=== PATIENT | male | born 1970 | race Caucasian/White ===

== ENCOUNTER 2017-09-26 23:06 | Inpatient (IN) | payer OTHER, MEDICAID ==
[~2017-09-26] VITALS: Ht 182.9 cm; Wt 82.1 kg
[2017-09-26] MEDS ORDERED: METF500T4 PO (23:12)
[2017-09-26] MEDS ORDERED: CLOZ25TA4 PO (23:17)
[2017-09-26 23:22] LABS: BASOPHILS % (AUTO) 0.5 % (0.0-2.0); EOSINOPHILS % (AUTO) 0 % (1.0-6.0); HEMATOCRIT 38.8 % (41-53); HEMOGLOBIN 12.9 g/dL (13.5-17.5); LYMPHOCYTES # (AUTO) 1.6 K/uL (1.0-4.8); LYMPHOCYTES % (AUTO) 26.7 % (22.0-44.0); MEAN CORPUSCULAR HEMOGLOBIN 30.4 pg (26.0-34.0); MEAN CORPUSCULAR HGB CONC 33.3 G/dL (31.0-37.0); MEAN CORPUSCULAR VOLUME 91 fL (80-100); MONOCYTES # (AUTO) 0.5 K/uL (0.1-1.0); NEUTROPHILS # (AUTO) 3.8 K/uL (1.8-7.7); NEUTROPHILS % (AUTO) 64.8 % (40.0-70.0); PLATELET COUNT (AUTO) 282 K/uL (150-450); RED BLOOD CELL COUNT(AUTO) 4.25 MIL/uL (4.50-5.90); RED CELL DISTRIBUTION WIDTH 17.3 % (11.5-14.5)
[2017-09-26 23:31] LABS: ANION GAP 12 mmol/L (8-16); CALCIUM, TOTAL 8.9 mg/dL (8.8-10.5); CARBON DIOXIDE 24 mmol/L (22-29); CHLORIDE 105 mmol/L (98-107); CREATININE 0.67 mg/dL (0.60-1.30); GLOMERULAR FILTR. RATE CALC > 60 mL/min (>60); GLUCOSE,RANDOM 92 mg/dL (70-110); SODIUM SERUM 141 mmol/L (136-145); UREA NITROGEN, BLOOD 10 mg/dL (7-18)
[2017-09-26 23:37] LABS: ALANINE AMINOTRANSFERASE 25 U/L (12-78); ALBUMIN 3.6 g/dL (3.4-5.0); ALKALINE PHOSPHATASE 40 U/L (46-116); ASPARTATE AMINOTRANSFERASE 22 U/L (15-37); BILIRUBIN,TOTAL 0.3 mg/dL (0.1-1.0); TOTAL PROTEIN, SERUM 7.2 g/dL (6.4-8.2)
[2017-09-26 23:42] LABS: AMPHET/METH SCREEN,URINE NEGATIVE (NEGATIVE); BARBITURATE SCREEN, URINE NEGATIVE (NEGATIVE); BENZODIAZEPINES SCREEN,URINE NEGATIVE (NEGATIVE); CANNABINOID SCREEN,URINE POSITIVE (NEGATIVE); COCAINE SCREEN,URINE NEGATIVE (NEGATIVE); METHADONE SCREEN, URINE NEGATIVE (NEGATIVE); OPIATE SCREEN,URINE NEGATIVE (NEGATIVE)
[2017-09-26 23:44] LABS: PHENCYCLIDINE SCREEN,URINE NEGATIVE (NEGATIVE)
[2017-09-27] MEDS ORDERED: PERTUSS(ACELL),DIPH,TET VAC/PF 0.5 ML VIAL IM ONE (03:00)
[2017-09-27] MEDS: MetFORMIN HCL 500 MG TABLET PO SCH ×2 (07:56→17:17)
[2017-09-27 08:18] LABS: GLUCOSE,POINT OF CARE 81 MG/DL (70-110)
[2017-09-27] MEDS ORDERED: SENNA 187 MG TABLET PO ONE (11:30)
[2017-09-27 15:58] LABS: GLUCOMETER DEV NAME(LOC) BV2S; GLUCOSE,POINT OF CARE 82 MG/DL (70-110)
[2017-09-27 16:35] VITALS: BP 115/69
[2017-09-27] MEDS ORDERED: INFLUENZA VIRUS VACCINE QVS 2017-18 (3YR+)/PF 60 MCG/0.5 ML SYRINGE IM ONE (18:00)
[2017-09-27] MEDS ORDERED: INSULIN ASPART 100 UNITS/ML SQ PRN (19:15)
[2017-09-27] MEDS ORDERED: ACETAMINOPHEN 325 MG TABLET PO PRN (19:15)
[2017-09-27] MEDS ORDERED: IBUPROFEN 600 MG TABLET PO PRN (19:15)
[2017-09-27] MEDS ORDERED: GLUCAGON,HUMAN RECOMBINANT 1 MG VIAL IM PRN (19:15)
[2017-09-28 04:20] VITALS: BP 117/67
[2017-09-28 07:07] LABS: GLUCOMETER DEV NAME(LOC) BV2S; GLUCOSE,POINT OF CARE 106 MG/DL (70-110)
[2017-09-28] MEDS: MetFORMIN HCL 500 MG TABLET PO SCH ×2 (07:08→17:03)
[2017-09-28 08:18] VITALS: BP 120/80
[2017-09-28 08:28] LABS: HEMOGLOBIN A1C 5.9 % (4.5-6.2)
[2017-09-28 08:54] LABS: CHOL/HDL RATIO 2.2 (4.2-7.3)
[2017-09-28] MEDS: LORazepam 2 MG TABLET PO PRN ×2 (12:44→23:43)
[2017-09-28 16:20] VITALS: BP 116/78
[2017-09-28 17:33] LABS: GLUCOMETER DEV NAME(LOC) BV2S; GLUCOSE,POINT OF CARE 92 MG/DL (70-110)
[2017-09-28] MEDS: ZOLPIDEM TARTRATE 10 MG TABLET PO PRN (23:43)
[2017-09-29] VITALS: BP 109/73
[2017-09-29] MEDS: MetFORMIN HCL 500 MG TABLET PO SCH ×2 (06:39→16:58)
[2017-09-29 06:48] LABS: GLUCOMETER DEV NAME(LOC) BV2S; GLUCOSE,POINT OF CARE 84 MG/DL (70-110)
[2017-09-29] MEDS: CloZAPine 25 MG TABLET PO SCH ×2 (08:05→16:58)
[2017-09-29 08:13] LABS: BASOPHILS % (AUTO) 0.2 % (0.0-2.0); EOSINOPHILS % (AUTO) 0 % (1.0-6.0); HEMATOCRIT 41.4 % (41-53); HEMOGLOBIN 14.1 g/dL (13.5-17.5); LYMPHOCYTES # (AUTO) 1.2 K/uL (1.0-4.8); LYMPHOCYTES % (AUTO) 26.9 % (22.0-44.0); MEAN CORPUSCULAR HEMOGLOBIN 30.9 pg (26.0-34.0); MEAN CORPUSCULAR HGB CONC 34.1 G/dL (31.0-37.0); MEAN CORPUSCULAR VOLUME 91 fL (80-100); MONOCYTES # (AUTO) 0.4 K/uL (0.1-1.0); MONOCYTES % (AUTO) 8.9 % (2.0-9.0); NEUTROPHILS # (AUTO) 2.9 K/uL (1.8-7.7); PLATELET COUNT (AUTO) 282 K/uL (150-450); RED BLOOD CELL COUNT(AUTO) 4.56 MIL/uL (4.50-5.90); RED CELL DISTRIBUTION WIDTH 16.6 % (11.5-14.5)
[2017-09-29 08:16] VITALS: BP 110/77
[2017-09-29 16:21] VITALS: BP 133/72
[2017-09-29 17:13] LABS: GLUCOMETER DEV NAME(LOC) BV2S; GLUCOSE,POINT OF CARE 71 MG/DL (70-110)
[2017-09-29] MEDS: LORazepam 2 MG TABLET PO PRN (20:39)
[2017-09-29 20:58] LABS: GLUCOMETER DEV NAME(LOC) BV2S; GLUCOSE,POINT OF CARE 112 MG/DL (70-110)
[2017-09-29] MEDS: ZOLPIDEM TARTRATE 10 MG TABLET PO PRN (21:09)
[2017-09-30 01:21] VITALS: BP 104/63
[2017-09-30 06:43] LABS: GLUCOMETER DEV NAME(LOC) BV2S; GLUCOSE,POINT OF CARE 86 MG/DL (70-110)
[2017-09-30] MEDS: MetFORMIN HCL 500 MG TABLET PO SCH ×2 (07:10→16:48)
[2017-09-30 08:16] VITALS: BP 112/51
[2017-09-30] MEDS: CloZAPine 25 MG TABLET PO SCH ×2 (08:23→17:01)
[2017-09-30] MEDS: HALOPERIDOL 5 MG TABLET PO PRN (08:59)
[2017-09-30 16:11] VITALS: BP 109/69
[2017-09-30 17:03] LABS: GLUCOMETER DEV NAME(LOC) BV2S; GLUCOSE,POINT OF CARE 85 MG/DL (70-110)
[2017-10-01 05:10] VITALS: BP 130/75
[2017-10-01 07:03] LABS: GLUCOMETER DEV NAME(LOC) BV2S; GLUCOSE,POINT OF CARE 96 MG/DL (70-110)
[2017-10-01] MEDS: MetFORMIN HCL 500 MG TABLET PO SCH ×2 (07:03→16:41)
[2017-10-01 08:08] VITALS: BP 129/76
[2017-10-01] MEDS: CloZAPine 25 MG TABLET PO SCH ×2 (08:25→16:41)
[2017-10-01] MEDS: HALOPERIDOL 5 MG TABLET PO PRN (10:06)
[2017-10-01] MEDS: LORazepam 2 MG TABLET PO PRN (10:06)
[2017-10-01] MEDS: QUEtiapine FUMARATE 25 MG TABLET PO SCH ×2 (11:43→16:41)
[2017-10-01 16:12] VITALS: BP 112/69
[2017-10-01 16:23] LABS: GLUCOMETER DEV NAME(LOC) BV2S; GLUCOSE,POINT OF CARE 108 MG/DL (70-110)
[2017-10-02 02:04] VITALS: BP 110/74
[2017-10-02 07:02] LABS: GLUCOMETER DEV NAME(LOC) BV2S; GLUCOSE,POINT OF CARE 93 MG/DL (70-110)
[2017-10-02] MEDS: MetFORMIN HCL 500 MG TABLET PO SCH ×2 (07:10→16:34)
[2017-10-02 08:13] VITALS: BP 144/75
[2017-10-02] MEDS: CloZAPine 25 MG TABLET PO SCH ×2 (08:27→16:34)
[2017-10-02] MEDS: QUEtiapine FUMARATE 25 MG TABLET PO SCH ×3 (08:27→16:34)
[2017-10-02] MEDS: LORazepam 2 MG TABLET PO PRN ×2 (10:20→19:22)
[2017-10-02] MEDS: HALOPERIDOL 5 MG TABLET PO PRN (10:20)
[2017-10-02 16:21] VITALS: BP 105/66
[2017-10-02 16:22] LABS: GLUCOMETER DEV NAME(LOC) BV2S; GLUCOSE,POINT OF CARE 85 MG/DL (70-110)
[2017-10-03 00:13] VITALS: BP 114/64
[2017-10-03 06:53] LABS: GLUCOMETER DEV NAME(LOC) BV2S; GLUCOSE,POINT OF CARE 77 MG/DL (70-110)
[2017-10-03] MEDS: MetFORMIN HCL 500 MG TABLET PO SCH ×2 (07:03→16:35)
[2017-10-03 08:00] VITALS: BP 109/61
[2017-10-03] MEDS: CloZAPine 25 MG TABLET PO SCH ×2 (08:01→16:36)
[2017-10-03] MEDS: QUEtiapine FUMARATE 25 MG TABLET PO SCH ×3 (08:01→16:35)
[2017-10-03 16:16] VITALS: BP 131/69
[2017-10-03 16:27] LABS: GLUCOMETER DEV NAME(LOC) BV2S; GLUCOSE,POINT OF CARE 98 MG/DL (70-110)
[2017-10-03] MEDS: LORazepam 2 MG TABLET PO PRN (19:14)
[2017-10-04 06:30] VITALS: BP 121/70
[2017-10-04] MEDS: MetFORMIN HCL 500 MG TABLET PO SCH ×2 (07:13→16:58)
[2017-10-04 08:20] VITALS: BP 118/70
[2017-10-04] MEDS: CLOTRIMAZOLE 1% 10 ML SOLUTION TP SCH ×2 (09:05→16:58)
[2017-10-04] MEDS: QUEtiapine FUMARATE 25 MG TABLET PO SCH ×3 (09:06→16:58)
[2017-10-04] MEDS: CloZAPine 25 MG TABLET PO SCH ×2 (09:06→16:58)
[2017-10-04] MEDS: LORazepam 2 MG TABLET PO PRN (12:06)
[2017-10-04 16:00] VITALS: BP 112/71
[2017-10-04 16:48] LABS: GLUCOMETER DEV NAME(LOC) BV2S; GLUCOSE,POINT OF CARE 89 MG/DL (70-110)
[2017-10-05 05:32] VITALS: BP 116/82
[2017-10-05] MEDS: MetFORMIN HCL 500 MG TABLET PO SCH ×2 (06:43→16:37)
[2017-10-05 06:58] LABS: GLUCOMETER DEV NAME(LOC) BV2S; GLUCOSE,POINT OF CARE 86 MG/DL (70-110)
[2017-10-05] MEDS: CLOTRIMAZOLE 1% 10 ML SOLUTION TP SCH ×2 (08:10→16:37)
[2017-10-05] MEDS: LORazepam 2 MG TABLET PO PRN (08:10)
[2017-10-05] MEDS: QUEtiapine FUMARATE 25 MG TABLET PO SCH ×3 (08:10→16:37)
[2017-10-05] MEDS: CloZAPine 25 MG TABLET PO SCH ×2 (08:10→16:37)
[2017-10-05 08:33] VITALS: BP 108/77
[2017-10-05 16:19] VITALS: BP 109/65
[2017-10-05 17:23] LABS: GLUCOMETER DEV NAME(LOC) BV2S; GLUCOSE,POINT OF CARE 125 MG/DL (70-110)
[2017-10-05] MEDS: ZOLPIDEM TARTRATE 10 MG TABLET PO PRN (21:02)
[2017-10-06 01:15] VITALS: BP 110/70
[2017-10-06 06:33] LABS: GLUCOMETER DEV NAME(LOC) BV2S; GLUCOSE,POINT OF CARE 83 MG/DL (70-110)
[2017-10-06] MEDS: MetFORMIN HCL 500 MG TABLET PO SCH ×2 (06:45→16:56)
[2017-10-06 08:16] VITALS: BP 110/60
[2017-10-06 08:25] LABS: BASOPHILS % (AUTO) 0.2 % (0.0-2.0); EOSINOPHILS % (AUTO) 0 % (1.0-6.0); HEMATOCRIT 39.7 % (41-53); HEMOGLOBIN 13.1 g/dL (13.5-17.5); MEAN CORPUSCULAR HEMOGLOBIN 30.1 pg (26.0-34.0); MEAN CORPUSCULAR HGB CONC 32.9 G/dL (31.0-37.0); MEAN CORPUSCULAR VOLUME 91 fL (80-100); MONOCYTES # (AUTO) 0.3 K/uL (0.1-1.0); MONOCYTES % (AUTO) 8.7 % (2.0-9.0); NEUTROPHILS # (AUTO) 2.2 K/uL (1.8-7.7); NEUTROPHILS % (AUTO) 62.1 % (40.0-70.0); PLATELET COUNT (AUTO) 269 K/uL (150-450); RED BLOOD CELL COUNT(AUTO) 4.35 MIL/uL (4.50-5.90); RED CELL DISTRIBUTION WIDTH 16.4 % (11.5-14.5)
[2017-10-06 08:30] VITALS: BP 120/69
[2017-10-06] MEDS ORDERED: DiphenhydrAMINE HCL 50 MG/ML VIAL ONE (08:39)
[2017-10-06] MEDS ORDERED: HALOPERIDOL LACTATE 5 MG/ML VIAL ONE (08:39)
[2017-10-06] MEDS ORDERED: LORazepam 2 MG/ML VIAL ONE (08:39)
[2017-10-06] MEDS ORDERED: LORazepam 2 MG/ML VIAL IM ONE (09:00)
[2017-10-06] MEDS ORDERED: HALOPERIDOL LACTATE 5 MG/ML VIAL IM ONE (09:00)
[2017-10-06] MEDS ORDERED: DiphenhydrAMINE HCL 50 MG/ML VIAL IM ONE (09:00)
[2017-10-06] MEDS: CloZAPine 25 MG TABLET PO SCH ×2 (09:43→16:55)
[2017-10-06] MEDS: QUEtiapine FUMARATE 25 MG TABLET PO SCH ×3 (09:43→16:56)
[2017-10-06] MEDS: CLOTRIMAZOLE 1% 10 ML SOLUTION TP SCH ×2 (09:44→16:56)
[2017-10-06 10:23] VITALS: BP 121/63
[2017-10-06 16:00] VITALS: BP 102/60
[2017-10-06 21:23] LABS: GLUCOMETER DEV NAME(LOC) BV2S; GLUCOSE,POINT OF CARE 95 MG/DL (70-110)
[2017-10-07 00:15] VITALS: BP 109/61
[2017-10-07 06:18] LABS: GLUCOMETER DEV NAME(LOC) BV2S; GLUCOSE,POINT OF CARE 85 MG/DL (70-110)
[2017-10-07] MEDS: MetFORMIN HCL 500 MG TABLET PO SCH ×2 (06:26→16:35)
[2017-10-07] MEDS: QUEtiapine FUMARATE 25 MG TABLET PO SCH ×3 (08:01→16:35)
[2017-10-07] MEDS: CLOTRIMAZOLE 1% 10 ML SOLUTION TP SCH ×2 (08:01→16:36)
[2017-10-07] MEDS: CloZAPine 25 MG TABLET PO SCH ×2 (08:01→17:18)
[2017-10-07 08:32] VITALS: BP 118/74
[2017-10-07] MEDS: LORazepam 2 MG TABLET PO PRN (14:05)
[2017-10-07 16:12] VITALS: BP 128/84
[2017-10-07 16:32] LABS: GLUCOMETER DEV NAME(LOC) BV2S; GLUCOSE,POINT OF CARE 107 MG/DL (70-110)
[2017-10-08 05:43] VITALS: BP 112/66
[2017-10-08 06:34] LABS: GLUCOMETER DEV NAME(LOC) BV2S; GLUCOSE,POINT OF CARE 87 MG/DL (70-110)
[2017-10-08] MEDS: MetFORMIN HCL 500 MG TABLET PO SCH (07:03)
[2017-10-08 08:07] VITALS: BP 110/63
[2017-10-08 08:09] LABS: BASOPHILS % (AUTO) 0.2 % (0.0-2.0); EOSINOPHILS % (AUTO) 0 % (1.0-6.0); HEMOGLOBIN 14.2 g/dL (13.5-17.5); LYMPHOCYTES # (AUTO) 1.2 K/uL (1.0-4.8); LYMPHOCYTES % (AUTO) 30.5 % (22.0-44.0); MEAN CORPUSCULAR HEMOGLOBIN 30.5 pg (26.0-34.0); MEAN CORPUSCULAR HGB CONC 33.7 G/dL (31.0-37.0); MEAN CORPUSCULAR VOLUME 91 fL (80-100); MONOCYTES # (AUTO) 0.3 K/uL (0.1-1.0); MONOCYTES % (AUTO) 7.4 % (2.0-9.0); NEUTROPHILS # (AUTO) 2.5 K/uL (1.8-7.7); NEUTROPHILS % (AUTO) 61.9 % (40.0-70.0); PLATELET COUNT (AUTO) 283 K/uL (150-450); RED BLOOD CELL COUNT(AUTO) 4.64 MIL/uL (4.50-5.90); RED CELL DISTRIBUTION WIDTH 16.6 % (11.5-14.5)
[2017-10-08] MEDS: QUEtiapine FUMARATE 25 MG TABLET PO SCH ×2 (08:49→12:25)
[2017-10-08] MEDS: CloZAPine 25 MG TABLET PO SCH (08:49)
[2017-10-08] MEDS: CLOTRIMAZOLE 1% 10 ML SOLUTION TP SCH (08:49)
[2017-10-08] MEDS ORDERED: QUET50TA PO ×2 (08:55→09:01)
[2017-10-08] MEDS ORDERED: CLOZ25TA PO ×2 (08:56→09:02)
[2017-10-08] MEDS ORDERED: METF500T PO ×2 (08:57→09:03)
== END 2017-10-08 14:40 | disposition home or self-care (01) | DRG 885 ==
LOC: EDUNIT# 23:06 → EDBD 23:09 → EMS 23:09 → B2X 09-27 14:32
PROVIDERS: ADMIT Psychiatry & Neurology Child & Adolescent Psychiatry; ATTEND Psychiatry & Neurology Child & Adolescent Psychiatry
PROC: 3E0234Z Introduction of Serum, Toxoid and Vaccine into Muscle, Percutaneous Approach (ICD-10-PCS; principal; 2017-09-27)
PROC: 0HQ0XZZ Repair Scalp Skin, External Approach (ICD-10-PCS; 2017-09-27)
DX: F25.0 Schizoaffective disorder, bipolar type (principal); E11.9 Type 2 diabetes mellitus without complications; R45.851 Suicidal ideations; E78.00 Pure hypercholesterolemia, unspecified; E78.5 Hyperlipidemia, unspecified; F12.90 Cannabis use, unspecified, uncomplicated; S01.01XA Laceration without foreign body of scalp, initial encounter; F10.10 Alcohol abuse, uncomplicated; F41.9 Anxiety disorder, unspecified; Z59.0 Homelessness; Z91.19 Patient's noncompliance with other medical treatment and regimen; X83.8XXA Intentional self-harm by other specified means, initial encounter; Y93.89 Activity, other specified; Z79.84 Long term (current) use of oral hypoglycemic drugs; Y92.89 Other specified places as the place of occurrence of the external cause; Z88.0 Allergy status to penicillin; Z23 Encounter for immunization
CPT/HCPCS: 12002; 70450; 82962; 83036; 87081; 90471; 90715; 99285; G0480; J1200; J1630; J2060

== ENCOUNTER 2018-03-10 17:00 | Inpatient (IN) | payer OTHER, MEDICAID ==
[~2018-03-10] VITALS: Ht 182.9 cm; Wt 85.0 kg
[~2018-03-10 17:00] MED LIST: CLOZ25TA PO; METF500T PO; QUET50TA PO
[2018-03-10 18:05] VITALS: BP 106/60
[2018-03-10 18:39] LABS: GLUCOMETER DEV NAME(LOC) BV2S 2; GLUCOSE,POINT OF CARE 86 MG/DL (70-110)
[2018-03-10] MEDS: LORazepam 2 MG TABLET PO PRN (19:25)
[2018-03-10 19:26] VITALS: BP 107/67
[2018-03-10] MEDS ORDERED: PNEUMOCOCCAL VACCINE POLYVALENT 0.5 ML VIAL [PPSV23] IM ONE (19:30)
[2018-03-10] MEDS ORDERED: DOCUSATE SODIUM 100 MG CAPSULE PO PRN (20:00)
[2018-03-10] MEDS ORDERED: LOPERAMIDE HCL 2 MG CAPSULE PO PRN (20:00)
[2018-03-10] MEDS ORDERED: PETROLATUM,WHITE 71 GM JELLY TP PRN (20:00)
[2018-03-10] MEDS ORDERED: CloNIDine HCL 0.1 MG TABLET PO PRN (20:00)
[2018-03-10] MEDS ORDERED: IBUPROFEN 400 MG TABLET PO PRN (20:00)
[2018-03-10] MEDS ORDERED: ALBUTEROL SULFATE HFA 90 MCG/PUFF 8 GM INHALER IH PRN (20:00)
[2018-03-10] MEDS ORDERED: GuaiFENesin/D-METHORPHAN [SUGAR-FREE] 200-20MG/10 ML SYRUP UDCUP PO PRN (20:00)
[2018-03-10] MEDS ORDERED: MAG HYDROX/AL HYDROX/SIMETH ES 30 ML SUSPENSION UDCUP PO PRN (20:00)
[2018-03-10] MEDS ORDERED: ACETAMINOPHEN 325 MG TABLET PO PRN (20:00)
[2018-03-10] MEDS ORDERED: ONDANSETRON HCL 4 MG TABLET PO PRN (20:00)
[2018-03-10] MEDS ORDERED: NICOTINE 14 MG/24 HOUR PATCH TD PRN (20:00)
[2018-03-10 20:07] VITALS: BP 110/62
[2018-03-10 22:31] VITALS: BP 105/64
[2018-03-11 02:25] VITALS: BP 114/76
[2018-03-11 06:49] VITALS: BP 107/71
[2018-03-11] MEDS: MetFORMIN HCL 500 MG TABLET PO SCH ×2 (06:56→16:35)
[2018-03-11 08:18] LABS: BASOPHILS % (AUTO) 0.3 % (0.0-2.0); EOSINOPHILS % (AUTO) 0 % (1.0-6.0); HEMATOCRIT 38.5 % (41-53); HEMOGLOBIN 12.9 g/dL (13.5-17.5); LYMPHOCYTES # (AUTO) 1.4 K/uL (1.0-4.8); LYMPHOCYTES % (AUTO) 36.3 % (22.0-44.0); MEAN CORPUSCULAR HEMOGLOBIN 30.4 pg (26.0-34.0); MEAN CORPUSCULAR HGB CONC 33.4 G/dL (31.0-37.0); MEAN CORPUSCULAR VOLUME 91 fL (80-100); MONOCYTES # (AUTO) 0.3 K/uL (0.1-1.0); MONOCYTES % (AUTO) 8.9 % (2.0-9.0); NEUTROPHILS # (AUTO) 2.1 K/uL (1.8-7.7); NEUTROPHILS % (AUTO) 54.5 % (40.0-70.0); PLATELET COUNT (AUTO) 230 K/uL (150-450); RED BLOOD CELL COUNT(AUTO) 4.23 MIL/uL (4.50-5.90); RED CELL DISTRIBUTION WIDTH 15.7 % (11.5-14.5)
[2018-03-11 08:28] VITALS: BP 100/61
[2018-03-11 08:34] LABS: HEMOGLOBIN A1C 5.6 % (4.5-6.2)
[2018-03-11 08:45] LABS: ALANINE AMINOTRANSFERASE 16 U/L (12-78); ALBUMIN 3.7 g/dL (3.4-5.0); ALKALINE PHOSPHATASE 31 U/L (46-116); ANION GAP 5 mmol/L (8-16); ASPARTATE AMINOTRANSFERASE 16 U/L (15-37); BILIRUBIN,TOTAL 0.9 mg/dL (0.1-1.0); CALCIUM, TOTAL 8.8 mg/dL (8.8-10.5); CARBON DIOXIDE 30 mmol/L (22-29); CHLORIDE 105 mmol/L (98-107); CHOL/HDL RATIO 2.7 (4.2-7.3); CHOLESTEROL 165 mg/dL (131-200); CREATININE 0.71 mg/dL (0.60-1.30); FREE T4 (FREE THYROXINE) 0.71 ng/dL (0.76-1.46); GLOMERULAR FILTR. RATE CALC > 60 mL/min (>60); GLUCOSE,RANDOM 89 mg/dL (70-110); HDL CHOLESTEROL 61 mg/dL (40-60); LDL CHOL (CALC.) 91 mg/dL (0-130); SODIUM SERUM 140 mmol/L (136-145); THYROID STIMULATING HORMONE 0.25 uIU/mL (0.36-3.74); TOTAL PROTEIN, SERUM 7.2 g/dL (6.4-8.2); TRIGLYCERIDES 64 mg/dL (15-150); UREA NITROGEN, BLOOD 16 mg/dL (7-18)
[2018-03-11 10:05] VITALS: BP 117/71
[2018-03-11 16:11] VITALS: BP 140/65
[2018-03-11 16:23] LABS: GLUCOMETER DEV NAME(LOC) BV2N3; GLUCOSE,POINT OF CARE 104 MG/DL (70-110)
[2018-03-11] MEDS: CloZAPine 100 MG TABLET PO SCH (20:31)
[2018-03-11] MEDS ORDERED: CloZAPine 100 MG TABLET PO SCH (21:00)
[2018-03-11] MEDS: ZOLPIDEM TARTRATE 10 MG TABLET PO PRN (21:01)
[2018-03-12 06:34] LABS: GLUCOMETER DEV NAME(LOC) BV2N3; GLUCOSE,POINT OF CARE 81 MG/DL (70-110)
[2018-03-12] MEDS: MetFORMIN HCL 500 MG TABLET PO SCH ×2 (06:37→15:59)
[2018-03-12 07:09] VITALS: BP 103/60
[2018-03-12 08:16] VITALS: BP 106/65
[2018-03-12 08:37] LABS: BASOPHILS % (AUTO) 0.2 % (0.0-2.0); EOSINOPHILS % (AUTO) 0 % (1.0-6.0); HEMATOCRIT 39.4 % (41-53); HEMOGLOBIN 13.2 g/dL (13.5-17.5); LYMPHOCYTES # (AUTO) 1.8 K/uL (1.0-4.8); LYMPHOCYTES % (AUTO) 47.1 % (22.0-44.0); MEAN CORPUSCULAR HEMOGLOBIN 30.5 pg (26.0-34.0); MEAN CORPUSCULAR HGB CONC 33.6 G/dL (31.0-37.0); MEAN CORPUSCULAR VOLUME 91 fL (80-100); MONOCYTES # (AUTO) 0.3 K/uL (0.1-1.0); MONOCYTES % (AUTO) 7.7 % (2.0-9.0); NEUTROPHILS # (AUTO) 1.7 K/uL (1.8-7.7); PLATELET COUNT (AUTO) 240 K/uL (150-450); RED BLOOD CELL COUNT(AUTO) 4.35 MIL/uL (4.50-5.90); RED CELL DISTRIBUTION WIDTH 15.6 % (11.5-14.5)
[2018-03-12 09:05] LABS: AMPHET/METH SCREEN,URINE NEGATIVE (NEGATIVE); BARBITURATE SCREEN, URINE NEGATIVE (NEGATIVE); BENZODIAZEPINES SCREEN,URINE NEGATIVE (NEGATIVE); CANNABINOID SCREEN,URINE POSITIVE (NEGATIVE); COCAINE SCREEN,URINE NEGATIVE (NEGATIVE); METHADONE SCREEN, URINE NEGATIVE (NEGATIVE); OPIATE SCREEN,URINE NEGATIVE (NEGATIVE)
[2018-03-12 09:17] LABS: PHENCYCLIDINE SCREEN,URINE NEGATIVE (NEGATIVE)
[2018-03-12 09:36] LABS: APPEARANCE,URINE CLOUDY (CLEAR); BILIRUBIN,URINE NEGATIVE (NEGATIVE); GLUCOSE, URINE (UA) NEGATIVE (NEGATIVE); KETONES,URINE NEGATIVE (NEGATIVE); LEUKOCYTE ESTERASE ,URINE NEGATIVE (NEGATIVE); NITRATE,URINE NEGATIVE (NEGATIVE); OCCULT BLOOD,URINE NEGATIVE (NEGATIVE); PH,URINE 7.5 (5.0-8.0); PROTEIN,URINE NEGATIVE (NEGATIVE)
[2018-03-12 09:51] LABS: % IRON SATURATION 10.8 % (30-44)
[2018-03-12] MEDS: LORazepam 2 MG TABLET PO PRN ×2 (09:57→15:59)
[2018-03-12 10:21] LABS: AMORPHOUS SEDIMENT,UR Moderate /LPF (None Seen); BACTERIA,URINE None Seen /HPF (None Seen); RBC,URINE None Seen /HPF (0-2); RENAL EPITHELIAL CELLS,URINE Few /LPF (None Seen); SQUAMOUS EPITHELIAL CELL,UR Few /LPF (None Seen); WBC,URINE 0-2 /HPF (0-5)
[2018-03-12 12:49] LABS: FOLATE SERUM 15.7 ng/mL (5.4-)
[2018-03-12] MEDS: HALOPERIDOL 5 MG TABLET PO PRN (15:59)
[2018-03-12 16:08] LABS: GLUCOMETER DEV NAME(LOC) BV2N3; GLUCOSE,POINT OF CARE 108 MG/DL (70-110)
[2018-03-12 16:17] VITALS: BP 101/60
[2018-03-12] MEDS: CloZAPine 100 MG TABLET PO SCH (20:08)
[2018-03-13 02:03] VITALS: BP 108/62
[2018-03-13 06:44] LABS: GLUCOMETER DEV NAME(LOC) BV2N3; GLUCOSE,POINT OF CARE 82 MG/DL (70-110)
[2018-03-13] MEDS: MetFORMIN HCL 500 MG TABLET PO SCH ×2 (07:00→16:32)
[2018-03-13 08:00] VITALS: BP 108/65
[2018-03-13] MEDS: LORazepam 2 MG TABLET PO PRN ×2 (12:19→18:20)
[2018-03-13 16:13] VITALS: BP 109/73
[2018-03-13 16:29] LABS: GLUCOMETER DEV NAME(LOC) BV2N3; GLUCOSE,POINT OF CARE 109 MG/DL (70-110)
[2018-03-13] MEDS: FERROUS SULFATE 325 MG EC TABLET PO SCH (16:32)
[2018-03-13] MEDS: CloZAPine 100 MG TABLET PO SCH (20:45)
[2018-03-14 06:24] LABS: GLUCOMETER DEV NAME(LOC) BV2N3; GLUCOSE,POINT OF CARE 79 MG/DL (70-110)
[2018-03-14 06:32] VITALS: BP 108/72
[2018-03-14] MEDS: FERROUS SULFATE 325 MG EC TABLET PO SCH ×3 (06:35→16:38)
[2018-03-14] MEDS: MetFORMIN HCL 500 MG TABLET PO SCH ×2 (06:35→16:38)
[2018-03-14 08:33] VITALS: BP 103/60
[2018-03-14 08:54] LABS: BASOPHILS % (AUTO) 0.2 % (0.0-2.0); EOSINOPHILS % (AUTO) 0 % (1.0-6.0); HEMATOCRIT 40.5 % (41-53); HEMOGLOBIN 13.6 g/dL (13.5-17.5); LYMPHOCYTES # (AUTO) 1.7 K/uL (1.0-4.8); LYMPHOCYTES % (AUTO) 36.5 % (22.0-44.0); MEAN CORPUSCULAR HEMOGLOBIN 30.5 pg (26.0-34.0); MEAN CORPUSCULAR HGB CONC 33.7 G/dL (31.0-37.0); MEAN CORPUSCULAR VOLUME 91 fL (80-100); MONOCYTES # (AUTO) 0.5 K/uL (0.1-1.0); MONOCYTES % (AUTO) 10.7 % (2.0-9.0); NEUTROPHILS # (AUTO) 2.4 K/uL (1.8-7.7); NEUTROPHILS % (AUTO) 52.6 % (40.0-70.0); PLATELET COUNT (AUTO) 246 K/uL (150-450); RED BLOOD CELL COUNT(AUTO) 4.47 MIL/uL (4.50-5.90); RED CELL DISTRIBUTION WIDTH 15.6 % (11.5-14.5)
[2018-03-14] MEDS: LORazepam 2 MG TABLET PO PRN (12:29)
[2018-03-14] MEDS: HALOPERIDOL 5 MG TABLET PO PRN (14:01)
[2018-03-14 16:28] LABS: GLUCOMETER DEV NAME(LOC) BV2N3; GLUCOSE,POINT OF CARE 113 MG/DL (70-110)
[2018-03-14 16:41] VITALS: BP 112/68
[2018-03-14] MEDS: CloZAPine 100 MG TABLET PO SCH (20:41)
[2018-03-15] MEDS: MetFORMIN HCL 500 MG TABLET PO SCH ×2 (06:32→16:52)
[2018-03-15] MEDS: FERROUS SULFATE 325 MG EC TABLET PO SCH ×3 (06:32→16:52)
[2018-03-15 06:40] VITALS: BP 97/61
[2018-03-15 07:28] LABS: GLUCOMETER DEV NAME(LOC) BV2N3; GLUCOSE,POINT OF CARE 98 MG/DL (70-110)
[2018-03-15 08:35] VITALS: BP 100/64
[2018-03-15 16:12] VITALS: BP 109/66
[2018-03-15] MEDS: MAGNESIUM HYDROXIDE SUSPENSION 30 ML UDCUP PO PRN (16:41)
[2018-03-15 16:44] LABS: GLUCOMETER DEV NAME(LOC) BV2N3; GLUCOSE,POINT OF CARE 123 MG/DL (70-110)
[2018-03-15] MEDS: LORazepam 2 MG TABLET PO PRN (18:39)
[2018-03-15] MEDS: CloZAPine 100 MG TABLET PO SCH (20:05)
[2018-03-16 06:14] LABS: GLUCOMETER DEV NAME(LOC) BV2N3; GLUCOSE,POINT OF CARE 85 MG/DL (70-110)
[2018-03-16 06:52] VITALS: BP 110/67
[2018-03-16] MEDS: MetFORMIN HCL 500 MG TABLET PO SCH ×2 (07:05→17:06)
[2018-03-16] MEDS: FERROUS SULFATE 325 MG EC TABLET PO SCH ×3 (07:05→17:06)
[2018-03-16 08:30] VITALS: BP 100/60
[2018-03-16 16:06] VITALS: BP 110/69
[2018-03-16 16:49] LABS: GLUCOMETER DEV NAME(LOC) BV2N3; GLUCOSE,POINT OF CARE 110 MG/DL (70-110)
[2018-03-16] MEDS: LORazepam 2 MG TABLET PO PRN (17:28)
[2018-03-16] MEDS: CloZAPine 100 MG TABLET PO SCH (20:05)
[2018-03-16] MEDS: ZOLPIDEM TARTRATE 10 MG TABLET PO PRN (20:42)
[2018-03-17 03:30] VITALS: BP 108/64
[2018-03-17 06:48] LABS: GLUCOMETER DEV NAME(LOC) BV2N3; GLUCOSE,POINT OF CARE 84 MG/DL (70-110)
[2018-03-17] MEDS: FERROUS SULFATE 325 MG EC TABLET PO SCH ×3 (07:09→16:32)
[2018-03-17] MEDS: MetFORMIN HCL 500 MG TABLET PO SCH ×2 (07:10→16:32)
[2018-03-17 09:58] VITALS: BP 117/66
[2018-03-17] MEDS: LORazepam 2 MG TABLET PO PRN ×2 (12:39→16:50)
[2018-03-17 16:22] VITALS: BP 116/72
[2018-03-17 16:28] LABS: GLUCOMETER DEV NAME(LOC) BV2N3; GLUCOSE,POINT OF CARE 89 MG/DL (70-110)
[2018-03-17] MEDS: CloZAPine 100 MG TABLET PO SCH (20:29)
[2018-03-18] MEDS: FERROUS SULFATE 325 MG EC TABLET PO SCH ×3 (06:21→16:37)
[2018-03-18] MEDS: MetFORMIN HCL 500 MG TABLET PO SCH ×2 (06:21→16:37)
[2018-03-18 06:48] VITALS: BP 101/63
[2018-03-18 07:04] LABS: GLUCOMETER DEV NAME(LOC) BV2N3; GLUCOSE,POINT OF CARE 81 MG/DL (70-110)
[2018-03-18 08:19] VITALS: BP 111/76
[2018-03-18] MEDS: MAGNESIUM HYDROXIDE SUSPENSION 30 ML UDCUP PO PRN (08:54)
[2018-03-18] MEDS: LORazepam 2 MG TABLET PO PRN (08:54)
[2018-03-18 11:58] LABS: GLUCOMETER DEV NAME(LOC) BV2N3; GLUCOSE,POINT OF CARE 119 MG/DL (70-110)
[2018-03-18 16:05] VITALS: BP 106/60
[2018-03-18 16:29] LABS: GLUCOMETER DEV NAME(LOC) BV2N3; GLUCOSE,POINT OF CARE 101 MG/DL (70-110)
[2018-03-18] MEDS: CloZAPine 100 MG TABLET PO SCH (20:31)
[2018-03-18] MEDS: ZOLPIDEM TARTRATE 10 MG TABLET PO PRN (22:25)
[2018-03-19 02:58] VITALS: BP 111/68
[2018-03-19] MEDS: FERROUS SULFATE 325 MG EC TABLET PO SCH ×3 (06:16→16:37)
[2018-03-19] MEDS: MetFORMIN HCL 500 MG TABLET PO SCH ×2 (06:16→16:38)
[2018-03-19 06:53] LABS: GLUCOMETER DEV NAME(LOC) BV2N3; GLUCOSE,POINT OF CARE 87 MG/DL (70-110)
[2018-03-19 08:35] VITALS: BP 109/71
[2018-03-19] MEDS: LORazepam 2 MG TABLET PO PRN (10:05)
[2018-03-19 16:06] VITALS: BP 103/68
[2018-03-19 16:19] LABS: GLUCOMETER DEV NAME(LOC) BV2N3; GLUCOSE,POINT OF CARE 97 MG/DL (70-110)
[2018-03-19] MEDS: CloZAPine 100 MG TABLET PO SCH (20:36)
[2018-03-20 00:36] VITALS: BP 103/64
[2018-03-20] MEDS: MetFORMIN HCL 500 MG TABLET PO SCH ×2 (06:38→16:34)
[2018-03-20] MEDS: FERROUS SULFATE 325 MG EC TABLET PO SCH ×3 (06:38→16:34)
[2018-03-20 06:48] LABS: GLUCOMETER DEV NAME(LOC) BV2N3; GLUCOSE,POINT OF CARE 90 MG/DL (70-110)
[2018-03-20 08:13] VITALS: BP 101/68
[2018-03-20 16:18] LABS: GLUCOMETER DEV NAME(LOC) BV2N3; GLUCOSE,POINT OF CARE 100 MG/DL (70-110)
[2018-03-20] MEDS: LORazepam 2 MG TABLET PO PRN (16:37)
[2018-03-20] MEDS: HALOPERIDOL 5 MG TABLET PO PRN (18:17)
[2018-03-20] MEDS: CloZAPine 100 MG TABLET PO SCH (20:46)
[2018-03-20] MEDS: ZOLPIDEM TARTRATE 10 MG TABLET PO PRN (20:46)
[2018-03-20] MEDS ORDERED: FERR325T22 PO (22:01)
[2018-03-21 01:30] VITALS: BP 100/62
[2018-03-21 06:34] LABS: GLUCOMETER DEV NAME(LOC) BV2N3; GLUCOSE,POINT OF CARE 82 MG/DL (70-110)
[2018-03-21] MEDS: MetFORMIN HCL 500 MG TABLET PO SCH (07:10)
[2018-03-21] MEDS: FERROUS SULFATE 325 MG EC TABLET PO SCH ×2 (07:10→11:37)
[2018-03-21 08:27] LABS: BASOPHILS % (AUTO) 0.3 % (0.0-2.0); EOSINOPHILS % (AUTO) 0 % (1.0-6.0); HEMATOCRIT 41.5 % (41-53); HEMOGLOBIN 13.7 g/dL (13.5-17.5); LYMPHOCYTES # (AUTO) 1.7 K/uL (1.0-4.8); LYMPHOCYTES % (AUTO) 45.5 % (22.0-44.0); MEAN CORPUSCULAR HEMOGLOBIN 30.3 pg (26.0-34.0); MEAN CORPUSCULAR HGB CONC 32.9 G/dL (31.0-37.0); MEAN CORPUSCULAR VOLUME 92 fL (80-100); MONOCYTES # (AUTO) 0.5 K/uL (0.1-1.0); MONOCYTES % (AUTO) 12.3 % (2.0-9.0); NEUTROPHILS # (AUTO) 1.6 K/uL (1.8-7.7); NEUTROPHILS % (AUTO) 41.9 % (40.0-70.0); PLATELET COUNT (AUTO) 201 K/uL (150-450); RED BLOOD CELL COUNT(AUTO) 4.51 MIL/uL (4.50-5.90)
[2018-03-21 08:32] VITALS: BP 100/60
== END 2018-03-21 13:10 | disposition home or self-care (01) | DRG 885 ==
LOC: B2S 17:58 → B2X 20:06
PROVIDERS: ADMIT Psychiatry & Neurology Psychiatry; ATTEND Psychiatry & Neurology Psychiatry
DX: F25.0 Schizoaffective disorder, bipolar type (principal); R45.851 Suicidal ideations; D64.9 Anemia, unspecified; D72.819 Decreased white blood cell count, unspecified; E11.9 Type 2 diabetes mellitus without complications; E61.1 Iron deficiency; E78.5 Hyperlipidemia, unspecified; F41.9 Anxiety disorder, unspecified; Z59.0 Homelessness
CPT/HCPCS: 80159; 80307; 82607; 82728; 82746; 83036; 83540; 83550; 84439; 84443; 87081

== ENCOUNTER 2018-03-28 19:07 | Inpatient (IN) | payer OTHER, MEDICAID ==
[~2018-03-28] VITALS: Ht 365.8 cm; Wt 81.4 kg
[~2018-03-28 19:07] MED LIST changes: -QUET50TA PO
[2018-03-28] MEDS ORDERED: LORazepam 2 MG TABLET PO PRN ×2 (20:00→22:30)
[2018-03-28 20:01] VITALS: BP 104/60
[2018-03-28] MEDS ORDERED: CloNIDine HCL 0.1 MG TABLET PO PRN (20:30)
[2018-03-28] MEDS ORDERED: LOPERAMIDE HCL 2 MG CAPSULE PO PRN (20:30)
[2018-03-28] MEDS ORDERED: MAGNESIUM HYDROXIDE SUSPENSION 30 ML UDCUP PO PRN (20:30)
[2018-03-28] MEDS ORDERED: DOCUSATE SODIUM 100 MG CAPSULE PO PRN (20:30)
[2018-03-28] MEDS ORDERED: GuaiFENesin/D-METHORPHAN [SUGAR-FREE] 200-20MG/10 ML SYRUP UDCUP PO PRN (20:30)
[2018-03-28] MEDS ORDERED: MAG HYDROX/AL HYDROX/SIMETH ES 30 ML SUSPENSION UDCUP PO PRN (20:30)
[2018-03-28] MEDS ORDERED: IBUPROFEN 400 MG TABLET PO PRN (20:30)
[2018-03-28] MEDS ORDERED: PETROLATUM,WHITE 71 GM JELLY TP PRN (20:30)
[2018-03-28] MEDS ORDERED: ALBUTEROL SULFATE HFA 90 MCG/PUFF 8 GM INHALER IH PRN (20:30)
[2018-03-28] MEDS ORDERED: ACETAMINOPHEN 325 MG TABLET PO PRN (20:30)
[2018-03-28] MEDS ORDERED: ONDANSETRON HCL 4 MG TABLET PO PRN (20:30)
[2018-03-28] MEDS: ZOLPIDEM TARTRATE 10 MG TABLET PO PRN (20:56)
[2018-03-28 21:03] VITALS: BP 100/61
[2018-03-28 22:05] VITALS: BP 102/63
[2018-03-28 23:02] VITALS: BP 100/60
[2018-03-29] VITALS (9 sets, daily range): BP systolic 100–120; BP diastolic 60–81
[2018-03-29] MEDS: MetFORMIN HCL 500 MG TABLET PO SCH ×2 (06:03→16:24)
[2018-03-29] MEDS ORDERED: LORazepam 2 MG TABLET PO PRN (07:00)
[2018-03-29 07:09] LABS: BASOPHILS % (AUTO) 0.3 % (0.0-2.0); EOSINOPHILS % (AUTO) 0 % (1.0-6.0); HEMATOCRIT 36.2 % (41-53); HEMOGLOBIN 12.1 g/dL (13.5-17.5); LYMPHOCYTES # (AUTO) 1.8 K/uL (1.0-4.8); LYMPHOCYTES % (AUTO) 37.5 % (22.0-44.0); MEAN CORPUSCULAR HEMOGLOBIN 30.4 pg (26.0-34.0); MEAN CORPUSCULAR HGB CONC 33.5 G/dL (31.0-37.0); MEAN CORPUSCULAR VOLUME 91 fL (80-100); MONOCYTES # (AUTO) 0.5 K/uL (0.1-1.0); MONOCYTES % (AUTO) 11.2 % (2.0-9.0); NEUTROPHILS # (AUTO) 2.5 K/uL (1.8-7.7); PLATELET COUNT (AUTO) 247 K/uL (150-450); RED CELL DISTRIBUTION WIDTH 16.2 % (11.5-14.5)
[2018-03-29 07:57] LABS: HEMOGLOBIN A1C 6.1 % (4.5-6.2)
[2018-03-29 08:01] LABS: ALANINE AMINOTRANSFERASE 14 U/L (12-78); ALBUMIN 3.1 g/dL (3.4-5.0); ALKALINE PHOSPHATASE 32 U/L (46-116); ANION GAP 7 mmol/L (8-16); ASPARTATE AMINOTRANSFERASE 15 U/L (15-37); BILIRUBIN,TOTAL 0.4 mg/dL (0.1-1.0); CALCIUM, TOTAL 8.5 mg/dL (8.8-10.5); CARBON DIOXIDE 28 mmol/L (22-29); CHLORIDE 107 mmol/L (98-107); CHOL/HDL RATIO 2.8 (4.2-7.3); CHOLESTEROL 142 mg/dL (131-200); CREATININE 0.78 mg/dL (0.60-1.30); GLOMERULAR FILTR. RATE CALC > 60 mL/min (>60); GLUCOSE,RANDOM 81 mg/dL (70-110); HCG,QUANTITATIVE 2 mIU/mL (0-6); HDL CHOLESTEROL 51 mg/dL (40-60); LDL CHOL (CALC.) 85 mg/dL (0-130); POTASSIUM 3.7 mmol/L (3.5-5.1); SODIUM SERUM 142 mmol/L (136-145); THYROID STIMULATING HORMONE 0.19 uIU/mL (0.36-3.74); TOTAL PROTEIN, SERUM 6.3 g/dL (6.4-8.2); TRIGLYCERIDES 31 mg/dL (15-150); UREA NITROGEN, BLOOD 12 mg/dL (7-18)
[2018-03-29] MEDS: LORazepam 2 MG TABLET PO SCH ×5 (09:00→20:02)
[2018-03-29] MEDS ORDERED: FERROUS SULFATE 325 MG EC TABLET PO SCH ×2 (09:00)
[2018-03-29] MEDS: NICOTINE 14 MG/24 HOUR PATCH TD SCH (09:00)
[2018-03-29] MEDS: FERROUS SULFATE 325 MG EC TABLET PO SCH ×2 (11:41→16:24)
[2018-03-29 16:44] LABS: GLUCOMETER DEV NAME(LOC) BV2N3; GLUCOSE,POINT OF CARE 90 MG/DL (70-110)
[2018-03-29] MEDS: CloZAPine 100 MG TABLET PO SCH (20:01)
[2018-03-30 01:39] VITALS: BP 110/68
[2018-03-30 06:28] LABS: GLUCOMETER DEV NAME(LOC) BV2N3; GLUCOSE,POINT OF CARE 78 MG/DL (70-110)
[2018-03-30] MEDS: MetFORMIN HCL 500 MG TABLET PO SCH ×2 (06:59→16:26)
[2018-03-30] MEDS: FERROUS SULFATE 325 MG EC TABLET PO SCH ×3 (06:59→16:26)
[2018-03-30 08:00] VITALS: BP 113/82
[2018-03-30 08:02] VITALS: BP 113/82
[2018-03-30] MEDS: LORazepam 2 MG TABLET PO SCH ×4 (08:26→20:16)
[2018-03-30] MEDS: NICOTINE 14 MG/24 HOUR PATCH TD SCH (08:32)
[2018-03-30 16:04] VITALS: BP 107/73
[2018-03-30 16:10] VITALS: BP 107/73
[2018-03-30 16:54] LABS: GLUCOMETER DEV NAME(LOC) BV2N3; GLUCOSE,POINT OF CARE 119 MG/DL (70-110)
[2018-03-30] MEDS: HALOPERIDOL 5 MG TABLET PO PRN (17:49)
[2018-03-30] MEDS ORDERED: LORazepam 2 MG/ML VIAL ONE (18:20)
[2018-03-30] MEDS ORDERED: HALOPERIDOL LACTATE 5 MG/ML VIAL ONE (18:21)
[2018-03-30] MEDS ORDERED: DiphenhydrAMINE HCL 50 MG/ML VIAL ONE (18:21)
[2018-03-30] MEDS ORDERED: HALOPERIDOL LACTATE 5 MG/ML VIAL IM ONE (18:30)
[2018-03-30] MEDS ORDERED: DiphenhydrAMINE HCL 50 MG/ML VIAL IM ONE (18:30)
[2018-03-30] MEDS ORDERED: LORazepam 2 MG/ML VIAL IM ONE (18:30)
[2018-03-30] MEDS: CloZAPine 100 MG TABLET PO SCH (20:15)
[2018-03-31 06:44] LABS: GLUCOMETER DEV NAME(LOC) BV3N5; GLUCOSE,POINT OF CARE 86 MG/DL (70-110)
[2018-03-31] MEDS: FERROUS SULFATE 325 MG EC TABLET PO SCH ×3 (06:49→16:43)
[2018-03-31] MEDS: MetFORMIN HCL 500 MG TABLET PO SCH ×2 (06:49→16:42)
[2018-03-31] MEDS ORDERED: LORazepam 1 MG TABLET PO PRN (07:00)
[2018-03-31] MEDS: NICOTINE 14 MG/24 HOUR PATCH TD SCH (08:35)
[2018-03-31] MEDS: LORazepam 1 MG TABLET PO SCH ×4 (08:36→20:07)
[2018-03-31 16:22] VITALS: BP 119/68
[2018-03-31] MEDS: LITHIUM CARBONATE 300 MG CAPSULE PO SCH (16:43)
[2018-03-31 17:14] LABS: GLUCOMETER DEV NAME(LOC) BV3N5; GLUCOSE,POINT OF CARE 111 MG/DL (70-110)
[2018-03-31 17:17] VITALS: BP 119/68
[2018-03-31] MEDS: HALOPERIDOL 5 MG TABLET PO PRN (17:31)
[2018-03-31] MEDS: CloZAPine 100 MG TABLET PO SCH (20:08)
[2018-03-31] MEDS: ZOLPIDEM TARTRATE 10 MG TABLET PO PRN (20:08)
[2018-04-01] MEDS: FERROUS SULFATE 325 MG EC TABLET PO SCH ×3 (06:36→16:36)
[2018-04-01] MEDS: MetFORMIN HCL 500 MG TABLET PO SCH ×2 (06:36→16:38)
[2018-04-01] MEDS ORDERED: LORazepam 1 MG TABLET PO PRN (07:00)
[2018-04-01 07:03] LABS: GLUCOMETER DEV NAME(LOC) BV3N5; GLUCOSE,POINT OF CARE 77 MG/DL (70-110)
[2018-04-01] MEDS: LITHIUM CARBONATE 300 MG CAPSULE PO SCH ×2 (08:01→16:36)
[2018-04-01] MEDS: HALOPERIDOL 5 MG TABLET PO PRN ×2 (08:01→16:37)
[2018-04-01] MEDS: NICOTINE 14 MG/24 HOUR PATCH TD SCH (08:02)
[2018-04-01 08:05] VITALS: BP 112/68
[2018-04-01 09:49] VITALS: BP 112/68
[2018-04-01 16:03] VITALS: BP 110/80
[2018-04-01 16:39] LABS: GLUCOMETER DEV NAME(LOC) BV3N5; GLUCOSE,POINT OF CARE 93 MG/DL (70-110)
[2018-04-01 18:17] VITALS: BP 110/80
[2018-04-01] MEDS: CloZAPine 100 MG TABLET PO SCH (20:21)
[2018-04-01] MEDS: ZOLPIDEM TARTRATE 10 MG TABLET PO PRN (20:21)
[2018-04-02] MEDS: MetFORMIN HCL 500 MG TABLET PO SCH ×2 (06:40→16:23)
[2018-04-02] MEDS: FERROUS SULFATE 325 MG EC TABLET PO SCH ×3 (06:40→16:23)
[2018-04-02 06:44] LABS: GLUCOMETER DEV NAME(LOC) BV3N5; GLUCOSE,POINT OF CARE 88 MG/DL (70-110)
[2018-04-02 08:07] VITALS: BP 111/68
[2018-04-02] MEDS: NICOTINE 14 MG/24 HOUR PATCH TD SCH (08:37)
[2018-04-02] MEDS: LITHIUM CARBONATE 300 MG CAPSULE PO SCH ×2 (08:37→16:23)
[2018-04-02 16:16] VITALS: BP 110/72
[2018-04-02] MEDS: HALOPERIDOL 5 MG TABLET PO PRN (16:23)
[2018-04-02 16:43] LABS: GLUCOMETER DEV NAME(LOC) BV3N5; GLUCOSE,POINT OF CARE 107 MG/DL (70-110)
[2018-04-02] MEDS: ZOLPIDEM TARTRATE 10 MG TABLET PO PRN (20:27)
[2018-04-02] MEDS: CloZAPine 100 MG TABLET PO SCH (20:28)
[2018-04-03 06:28] VITALS: BP 106/63
[2018-04-03] MEDS: FERROUS SULFATE 325 MG EC TABLET PO SCH ×3 (06:52→16:20)
[2018-04-03] MEDS: MetFORMIN HCL 500 MG TABLET PO SCH ×2 (06:52→16:21)
[2018-04-03 08:11] VITALS: BP 122/64
[2018-04-03 08:56] LABS: BASOPHILS % (AUTO) 0.3 % (0.0-2.0); EOSINOPHILS % (AUTO) 0 % (1.0-6.0); HEMATOCRIT 46.9 % (41-53); HEMOGLOBIN 15.4 g/dL (13.5-17.5); LYMPHOCYTES # (AUTO) 1.5 K/uL (1.0-4.8); LYMPHOCYTES % (AUTO) 31.3 % (22.0-44.0); MEAN CORPUSCULAR HEMOGLOBIN 30.7 pg (26.0-34.0); MEAN CORPUSCULAR HGB CONC 32.9 G/dL (31.0-37.0); MEAN CORPUSCULAR VOLUME 93 fL (80-100); MONOCYTES # (AUTO) 0.4 K/uL (0.1-1.0); MONOCYTES % (AUTO) 8.8 % (2.0-9.0); NEUTROPHILS # (AUTO) 2.8 K/uL (1.8-7.7); NEUTROPHILS % (AUTO) 59.6 % (40.0-70.0); PLATELET COUNT (AUTO) 317 K/uL (150-450); RED BLOOD CELL COUNT(AUTO) 5.02 MIL/uL (4.50-5.90); RED CELL DISTRIBUTION WIDTH 16.7 % (11.5-14.5)
[2018-04-03] MEDS: NICOTINE 14 MG/24 HOUR PATCH TD SCH (09:00)
[2018-04-03 09:21] LABS: LITHIUM < 0.20 mmol/L (0.60-1.20)
[2018-04-03] MEDS: LITHIUM CARBONATE 300 MG CAPSULE PO SCH ×2 (09:25→16:21)
[2018-04-03 09:38] LABS: ALANINE AMINOTRANSFERASE 18 U/L (12-78); ALKALINE PHOSPHATASE 44 U/L (46-116); ANION GAP 11 mmol/L (8-16); ASPARTATE AMINOTRANSFERASE 16 U/L (15-37); BILIRUBIN,TOTAL 0.5 mg/dL (0.1-1.0); CALCIUM, TOTAL 9.5 mg/dL (8.8-10.5); CARBON DIOXIDE 29 mmol/L (22-29); CHLORIDE 103 mmol/L (98-107); CREATININE 0.86 mg/dL (0.60-1.30); GLOMERULAR FILTR. RATE CALC > 60 mL/min (>60); GLUCOSE,RANDOM 111 mg/dL (70-110); SODIUM SERUM 143 mmol/L (136-145); THYROID STIMULATING HORMONE 0.27 uIU/mL (0.36-3.74); TOTAL PROTEIN, SERUM 8.5 g/dL (6.4-8.2); UREA NITROGEN, BLOOD 13 mg/dL (7-18)
[2018-04-03 16:00] VITALS: BP 119/70
[2018-04-03] MEDS: HALOPERIDOL 5 MG TABLET PO PRN (16:21)
[2018-04-03 16:43] LABS: GLUCOMETER DEV NAME(LOC) BV3N5; GLUCOSE,POINT OF CARE 95 MG/DL (70-110)
[2018-04-03] MEDS: ZOLPIDEM TARTRATE 10 MG TABLET PO PRN (20:25)
[2018-04-03] MEDS: CloZAPine 100 MG TABLET PO SCH (20:25)
[2018-04-04 06:03] LABS: GLUCOMETER DEV NAME(LOC) BV3N5; GLUCOSE,POINT OF CARE 93 MG/DL (70-110)
[2018-04-04 06:15] VITALS: BP 124/71
[2018-04-04] MEDS: FERROUS SULFATE 325 MG EC TABLET PO SCH ×3 (06:16→16:34)
[2018-04-04] MEDS: MetFORMIN HCL 500 MG TABLET PO SCH ×2 (06:16→16:34)
[2018-04-04 08:07] VITALS: BP 126/71
[2018-04-04] MEDS: LITHIUM CARBONATE 300 MG CAPSULE PO SCH ×2 (08:36→16:34)
[2018-04-04] MEDS ORDERED: LITH300C3 PO (08:55)
[2018-04-04] MEDS ORDERED: FERR-89 PO (08:55)
[2018-04-04] MEDS: NICOTINE 14 MG/24 HOUR PATCH TD SCH (09:00)
[2018-04-04 16:23] VITALS: BP 112/77
[2018-04-04] MEDS: HALOPERIDOL 5 MG TABLET PO PRN (16:34)
[2018-04-04 17:18] LABS: GLUCOMETER DEV NAME(LOC) BV3N5; GLUCOSE,POINT OF CARE 89 MG/DL (70-110)
[2018-04-04] MEDS: CloZAPine 100 MG TABLET PO SCH (20:25)
[2018-04-04] MEDS: ZOLPIDEM TARTRATE 10 MG TABLET PO PRN (20:25)
[2018-04-05 06:34] VITALS: BP 106/70
[2018-04-05] MEDS: MetFORMIN HCL 500 MG TABLET PO SCH ×2 (07:16→16:44)
[2018-04-05] MEDS: FERROUS SULFATE 325 MG EC TABLET PO SCH ×3 (07:17→16:44)
[2018-04-05 07:28] LABS: GLUCOMETER DEV NAME(LOC) BV3N5; GLUCOSE,POINT OF CARE 120 MG/DL (70-110)
[2018-04-05] MEDS: LITHIUM CARBONATE 300 MG CAPSULE PO SCH ×2 (08:23→16:49)
[2018-04-05] MEDS: NICOTINE 14 MG/24 HOUR PATCH TD SCH (08:23)
[2018-04-05 08:27] VITALS: BP 114/80
[2018-04-05 09:42] LABS: BASOPHILS % (AUTO) 0.2 % (0.0-2.0); EOSINOPHILS % (AUTO) 0 % (1.0-6.0); HEMATOCRIT 40.7 % (41-53); HEMOGLOBIN 13.6 g/dL (13.5-17.5); LYMPHOCYTES # (AUTO) 1.3 K/uL (1.0-4.8); LYMPHOCYTES % (AUTO) 25.7 % (22.0-44.0); MEAN CORPUSCULAR HEMOGLOBIN 30.9 pg (26.0-34.0); MEAN CORPUSCULAR HGB CONC 33.4 G/dL (31.0-37.0); MEAN CORPUSCULAR VOLUME 92 fL (80-100); MONOCYTES # (AUTO) 0.6 K/uL (0.1-1.0); MONOCYTES % (AUTO) 11.9 % (2.0-9.0); NEUTROPHILS # (AUTO) 3.1 K/uL (1.8-7.7); NEUTROPHILS % (AUTO) 62.2 % (40.0-70.0); PLATELET COUNT (AUTO) 287 K/uL (150-450); RED BLOOD CELL COUNT(AUTO) 4.41 MIL/uL (4.50-5.90); RED CELL DISTRIBUTION WIDTH 16.7 % (11.5-14.5)
[2018-04-05] MEDS: HALOPERIDOL 5 MG TABLET PO PRN ×2 (12:09→16:44)
[2018-04-05 16:05] VITALS: BP 115/82
[2018-04-05] MEDS: LORazepam 1 MG TABLET PO PRN (16:44)
[2018-04-05 16:54] LABS: GLUCOMETER DEV NAME(LOC) BV3N5; GLUCOSE,POINT OF CARE 101 MG/DL (70-110)
[2018-04-05] MEDS: ZOLPIDEM TARTRATE 10 MG TABLET PO PRN (20:23)
[2018-04-05] MEDS: CloZAPine 100 MG TABLET PO SCH (20:23)
[2018-04-06 06:34] VITALS: BP 112/68
[2018-04-06 06:34] LABS: GLUCOMETER DEV NAME(LOC) BV3N5; GLUCOSE,POINT OF CARE 87 MG/DL (70-110)
[2018-04-06] MEDS: FERROUS SULFATE 325 MG EC TABLET PO SCH ×3 (06:49→16:31)
[2018-04-06] MEDS: MetFORMIN HCL 500 MG TABLET PO SCH ×2 (06:52→16:31)
[2018-04-06] MEDS: LITHIUM CARBONATE 300 MG CAPSULE PO SCH ×2 (08:23→16:31)
[2018-04-06] MEDS: NICOTINE 14 MG/24 HOUR PATCH TD SCH (08:23)
[2018-04-06 08:38] VITALS: BP 116/78
[2018-04-06 16:00] VITALS: BP 122/78
[2018-04-06] MEDS: HALOPERIDOL 5 MG TABLET PO PRN (16:32)
[2018-04-06] MEDS: LORazepam 1 MG TABLET PO PRN (16:32)
[2018-04-06 16:34] LABS: GLUCOMETER DEV NAME(LOC) BV3N5; GLUCOSE,POINT OF CARE 103 MG/DL (70-110)
[2018-04-06] MEDS: ZOLPIDEM TARTRATE 10 MG TABLET PO PRN (20:14)
[2018-04-06] MEDS: CloZAPine 100 MG TABLET PO SCH (20:14)
[2018-04-07 06:29] LABS: GLUCOMETER DEV NAME(LOC) BV3N5; GLUCOSE,POINT OF CARE 87 MG/DL (70-110)
[2018-04-07] MEDS: MetFORMIN HCL 500 MG TABLET PO SCH ×2 (06:29→16:53)
[2018-04-07] MEDS: FERROUS SULFATE 325 MG EC TABLET PO SCH ×3 (06:29→16:53)
[2018-04-07 06:31] VITALS: BP 106/67
[2018-04-07 08:03] VITALS: BP 116/68
[2018-04-07] MEDS: LITHIUM CARBONATE 300 MG CAPSULE PO SCH ×2 (08:09→16:53)
[2018-04-07] MEDS: NICOTINE 14 MG/24 HOUR PATCH TD SCH (08:09)
[2018-04-07 16:00] VITALS: BP 118/81
[2018-04-07] MEDS: LORazepam 1 MG TABLET PO PRN ×2 (16:53→21:07)
[2018-04-07] MEDS: HALOPERIDOL 5 MG TABLET PO PRN (16:53)
[2018-04-07 16:58] LABS: GLUCOMETER DEV NAME(LOC) BV3N5; GLUCOSE,POINT OF CARE 103 MG/DL (70-110)
[2018-04-07] MEDS ORDERED: ZOLPIDEM TARTRATE 10 MG TABLET PO PRN (20:45)
[2018-04-07] MEDS: CloZAPine 100 MG TABLET PO SCH (21:07)
[2018-04-08] MEDS: FERROUS SULFATE 325 MG EC TABLET PO SCH ×2 (06:13→11:57)
[2018-04-08 06:14] LABS: GLUCOMETER DEV NAME(LOC) BV3N5; GLUCOSE,POINT OF CARE 79 MG/DL (70-110)
[2018-04-08] MEDS: MetFORMIN HCL 500 MG TABLET PO SCH (06:14)
[2018-04-08 06:29] VITALS: BP 105/66
[2018-04-08 08:04] VITALS: BP 110/76
[2018-04-08] MEDS: LITHIUM CARBONATE 300 MG CAPSULE PO SCH (08:51)
[2018-04-08] MEDS: NICOTINE 14 MG/24 HOUR PATCH TD SCH ×2 (08:52→09:00)
[2018-04-08] MEDS: LORazepam 1 MG TABLET PO PRN (09:12)
[2018-04-08] MEDS: HALOPERIDOL 5 MG TABLET PO PRN (09:12)
== END 2018-04-08 14:09 | disposition home or self-care (01) | DRG 885 ==
LOC: B2X 19:54 → B3A 03-30 18:30
PROVIDERS: ADMIT Psychiatry & Neurology Psychiatry; ATTEND Psychiatry & Neurology Psychiatry
DX: F25.0 Schizoaffective disorder, bipolar type (principal); E83.51 Hypocalcemia; E78.5 Hyperlipidemia, unspecified; E11.9 Type 2 diabetes mellitus without complications; D64.9 Anemia, unspecified; Z88.0 Allergy status to penicillin
CPT/HCPCS: 82310; 83036; 84439; 84443; J1200; J1630; J2060

== ENCOUNTER 2018-06-16 12:35 | Inpatient (IN) | payer OTHER, MEDICAID ==
[~2018-06-16] VITALS: Ht 182.9 cm; Wt 83.0 kg
[~2018-06-16 12:35] MED LIST changes: +LITH300C3 PO
[2018-06-16 14:38] VITALS: BP 125/75
[2018-06-16] MEDS ORDERED: MAGNESIUM HYDROXIDE SUSPENSION 30 ML UDCUP PO PRN (15:15)
[2018-06-16] MEDS ORDERED: ALBUTEROL SULFATE HFA 90 MCG/PUFF 8 GM INHALER IH PRN (15:15)
[2018-06-16] MEDS ORDERED: DOCUSATE SODIUM 100 MG CAPSULE PO PRN (15:15)
[2018-06-16] MEDS ORDERED: ONDANSETRON HCL 4 MG TABLET PO PRN (15:15)
[2018-06-16] MEDS ORDERED: CloNIDine HCL 0.1 MG TABLET PO PRN (15:15)
[2018-06-16] MEDS ORDERED: NICOTINE 14 MG/24 HOUR PATCH TD PRN (15:15)
[2018-06-16] MEDS ORDERED: GuaiFENesin/D-METHORPHAN [SUGAR-FREE] 200-20MG/10 ML SYRUP UDCUP PO PRN (15:15)
[2018-06-16] MEDS ORDERED: IBUPROFEN 400 MG TABLET PO PRN (15:15)
[2018-06-16] MEDS ORDERED: MAG HYDROX/AL HYDROX/SIMETH ES 30 ML SUSPENSION UDCUP PO PRN (15:15)
[2018-06-16] MEDS ORDERED: PETROLATUM,WHITE 71 GM JELLY TP PRN (15:15)
[2018-06-16] MEDS ORDERED: LOPERAMIDE HCL 2 MG CAPSULE PO PRN (15:15)
[2018-06-16] MEDS ORDERED: ACETAMINOPHEN 325 MG TABLET PO PRN (15:15)
[2018-06-16 16:00] VITALS: BP 115/73
[2018-06-16] MEDS ORDERED: INSULIN LISPRO 100 UNITS/ML SQ PRN (16:00)
[2018-06-16] MEDS ORDERED: GLUCAGON,HUMAN RECOMBINANT 1 MG VIAL IM PRN (16:00)
[2018-06-16] MEDS ORDERED: CLOZ100 PO (17:10)
[2018-06-16] MEDS ORDERED: TRAZ-220 PO (17:10)
[2018-06-16] MEDS ORDERED: CLOZ25TA4 PO (17:10)
[2018-06-16] MEDS: ZOLPIDEM TARTRATE 10 MG TABLET PO PRN (20:56)
[2018-06-17 04:24] VITALS: BP 118/82
[2018-06-17 06:19] LABS: GLUCOMETER DEV NAME(LOC) BV3N5; GLUCOSE,POINT OF CARE 83 MG/DL (70-110)
[2018-06-17 08:05] VITALS: BP 106/72
[2018-06-17 08:11] LABS: BASOPHILS % (AUTO) 0.2 % (0.0-2.0); EOSINOPHILS % (AUTO) 0 % (1.0-6.0); HEMATOCRIT 41.3 % (41-53); HEMOGLOBIN 13.8 g/dL (13.5-17.5); LYMPHOCYTES # (AUTO) 1.3 K/uL (1.0-4.8); LYMPHOCYTES % (AUTO) 23.9 % (22.0-44.0); MEAN CORPUSCULAR HEMOGLOBIN 31.8 pg (26.0-34.0); MEAN CORPUSCULAR HGB CONC 33.5 G/dL (31.0-37.0); MEAN CORPUSCULAR VOLUME 95 fL (80-100); MONOCYTES # (AUTO) 0.5 K/uL (0.1-1.0); MONOCYTES % (AUTO) 10.3 % (2.0-9.0); NEUTROPHILS # (AUTO) 3.5 K/uL (1.8-7.7); NEUTROPHILS % (AUTO) 65.6 % (40.0-70.0); PLATELET COUNT (AUTO) 327 K/uL (150-450); RED BLOOD CELL COUNT(AUTO) 4.34 MIL/uL (4.50-5.90); RED CELL DISTRIBUTION WIDTH 15.6 % (11.5-14.5)
[2018-06-17 08:55] LABS: ALANINE AMINOTRANSFERASE 28 U/L (12-78); ALBUMIN 3.7 g/dL (3.4-5.0); ALKALINE PHOSPHATASE 51 U/L (46-116); ANION GAP 8 mmol/L (8-16); ASPARTATE AMINOTRANSFERASE 24 U/L (15-37); BILIRUBIN,TOTAL 0.8 mg/dL (0.1-1.0); CALCIUM, TOTAL 9.1 mg/dL (8.8-10.5); CARBON DIOXIDE 30 mmol/L (22-29); CHLORIDE 104 mmol/L (98-107); CHOL/HDL RATIO 3.3 (4.2-7.3); CHOLESTEROL 174 mg/dL (131-200); CREATININE 0.86 mg/dL (0.60-1.30); GLOMERULAR FILTR. RATE CALC > 60 mL/min (>60); GLUCOSE,RANDOM 86 mg/dL (70-110); HDL CHOLESTEROL 53 mg/dL (40-60); LDL CHOL (CALC.) 110 mg/dL (0-130); POTASSIUM 4.1 mmol/L (3.5-5.1); SODIUM SERUM 142 mmol/L (136-145); THYROID STIMULATING HORMONE 0.24 uIU/mL (0.36-3.74); TOTAL PROTEIN, SERUM 7.8 g/dL (6.4-8.2); TRIGLYCERIDES 57 mg/dL (15-150); UREA NITROGEN, BLOOD 14 mg/dL (7-18)
[2018-06-17 09:08] LABS: HEMOGLOBIN A1C 5.6 % (4.5-6.2)
[2018-06-17 12:19] LABS: GLUCOMETER DEV NAME(LOC) BV3N5; GLUCOSE,POINT OF CARE 74 MG/DL (70-110)
[2018-06-17 16:00] VITALS: BP 131/83
[2018-06-17] MEDS: LITHIUM CARBONATE 300 MG CAPSULE PO SCH (16:59)
[2018-06-17] MEDS: LORazepam 2 MG TABLET PO PRN (16:59)
[2018-06-17] MEDS: MetFORMIN HCL 500 MG TABLET PO SCH (16:59)
[2018-06-17 17:18] LABS: GLUCOMETER DEV NAME(LOC) BV3N5; GLUCOSE,POINT OF CARE 100 MG/DL (70-110)
[2018-06-17] MEDS: CloZAPine 100 MG TABLET PO SCH (21:01)
[2018-06-17 21:23] LABS: GLUCOMETER DEV NAME(LOC) BV3N5; GLUCOSE,POINT OF CARE 109 MG/DL (70-110)
[2018-06-18] MEDS: MetFORMIN HCL 500 MG TABLET PO SCH ×2 (06:38→16:23)
[2018-06-18 06:48] LABS: GLUCOMETER DEV NAME(LOC) BV3N5; GLUCOSE,POINT OF CARE 92 MG/DL (70-110)
[2018-06-18 06:58] VITALS: BP 117/87
[2018-06-18 08:22] VITALS: BP 112/80
[2018-06-18] MEDS: LITHIUM CARBONATE 300 MG CAPSULE PO SCH ×2 (09:09→16:23)
[2018-06-18 12:34] LABS: GLUCOMETER DEV NAME(LOC) BV3N5; GLUCOSE,POINT OF CARE 115 MG/DL (70-110)
[2018-06-18 16:00] VITALS: BP 122/68
[2018-06-18 16:58] LABS: GLUCOMETER DEV NAME(LOC) BV3N5; GLUCOSE,POINT OF CARE 100 MG/DL (70-110)
[2018-06-18] MEDS: CloZAPine 100 MG TABLET PO SCH (20:49)
[2018-06-18 21:14] LABS: GLUCOMETER DEV NAME(LOC) BV3N5; GLUCOSE,POINT OF CARE 98 MG/DL (70-110)
[2018-06-19 06:04] VITALS: BP 101/65
[2018-06-19 06:43] LABS: GLUCOMETER DEV NAME(LOC) BV3N5; GLUCOSE,POINT OF CARE 82 MG/DL (70-110)
[2018-06-19] MEDS: MetFORMIN HCL 500 MG TABLET PO SCH ×2 (06:55→16:43)
[2018-06-19 08:19] VITALS: BP 116/87
[2018-06-19] MEDS: LITHIUM CARBONATE 300 MG CAPSULE PO SCH ×2 (08:48→16:43)
[2018-06-19 11:49] LABS: GLUCOMETER DEV NAME(LOC) BV3N5; GLUCOSE,POINT OF CARE 72 MG/DL (70-110)
[2018-06-19] MEDS: LORazepam 2 MG TABLET PO PRN ×2 (13:23→17:28)
[2018-06-19] MEDS: HALOPERIDOL 5 MG TABLET PO PRN (13:24)
[2018-06-19 16:55] VITALS: BP 120/75
[2018-06-19 17:33] LABS: GLUCOMETER DEV NAME(LOC) BV3N5; GLUCOSE,POINT OF CARE 104 MG/DL (70-110)
[2018-06-19] MEDS: CloZAPine 100 MG TABLET PO SCH (20:38)
[2018-06-19 21:12] LABS: GLUCOMETER DEV NAME(LOC) BV3N5; GLUCOSE,POINT OF CARE 105 MG/DL (70-110)
[2018-06-20 06:18] LABS: GLUCOMETER DEV NAME(LOC) BV3N5; GLUCOSE,POINT OF CARE 95 MG/DL (70-110)
[2018-06-20] MEDS: MetFORMIN HCL 500 MG TABLET PO SCH ×2 (06:20→16:43)
[2018-06-20 06:47] VITALS: BP 109/78
[2018-06-20 08:09] VITALS: BP 117/67
[2018-06-20] MEDS: LORazepam 2 MG TABLET PO PRN ×2 (08:11→16:43)
[2018-06-20] MEDS: LITHIUM CARBONATE 300 MG CAPSULE PO SCH ×2 (08:11→16:43)
[2018-06-20] MEDS: HALOPERIDOL 5 MG TABLET PO PRN (08:11)
[2018-06-20 11:18] LABS: GLUCOMETER DEV NAME(LOC) BV3N5; GLUCOSE,POINT OF CARE 105 MG/DL (70-110)
[2018-06-20 16:23] VITALS: BP 112/68
[2018-06-20 17:23] LABS: GLUCOMETER DEV NAME(LOC) BV3N5; GLUCOSE,POINT OF CARE 92 MG/DL (70-110)
[2018-06-20] MEDS: CloZAPine 100 MG TABLET PO SCH (20:57)
[2018-06-20 21:13] LABS: GLUCOMETER DEV NAME(LOC) BV3N5; GLUCOSE,POINT OF CARE 120 MG/DL (70-110)
[2018-06-21] MEDS: MetFORMIN HCL 500 MG TABLET PO SCH ×2 (06:34→17:17)
[2018-06-21 06:38] LABS: GLUCOMETER DEV NAME(LOC) BV3N5; GLUCOSE,POINT OF CARE 115 MG/DL (70-110)
[2018-06-21 06:48] VITALS: BP 110/62
[2018-06-21 08:14] VITALS: BP 112/62
[2018-06-21] MEDS: LITHIUM CARBONATE 300 MG CAPSULE PO SCH ×2 (08:54→17:18)
[2018-06-21 11:49] LABS: GLUCOMETER DEV NAME(LOC) BV3N5; GLUCOSE,POINT OF CARE 113 MG/DL (70-110)
[2018-06-21 16:23] VITALS: BP 96/57
[2018-06-21] MEDS: LORazepam 2 MG TABLET PO PRN (17:17)
[2018-06-21 17:28] LABS: GLUCOMETER DEV NAME(LOC) BV3N5; GLUCOSE,POINT OF CARE 107 MG/DL (70-110)
[2018-06-21] MEDS: CloZAPine 100 MG TABLET PO SCH (21:24)
[2018-06-22 05:38] VITALS: BP 108/64
[2018-06-22 06:23] LABS: GLUCOMETER DEV NAME(LOC) BV3N5; GLUCOSE,POINT OF CARE 139 MG/DL (70-110)
[2018-06-22] MEDS: MetFORMIN HCL 500 MG TABLET PO SCH (06:45)
[2018-06-22 08:12] VITALS: BP 113/77
[2018-06-22] MEDS: LITHIUM CARBONATE 300 MG CAPSULE PO SCH ×2 (09:32→16:16)
[2018-06-22] MEDS: LORazepam 2 MG TABLET PO PRN ×2 (09:32→16:16)
[2018-06-22 11:34] LABS: GLUCOMETER DEV NAME(LOC) BV3N5; GLUCOSE,POINT OF CARE 88 MG/DL (70-110)
[2018-06-22 16:10] VITALS: BP 110/75
[2018-06-22 16:44] LABS: GLUCOMETER DEV NAME(LOC) BV3N5; GLUCOSE,POINT OF CARE 99 MG/DL (70-110)
[2018-06-22] MEDS: CloZAPine 100 MG TABLET PO SCH (20:20)
[2018-06-23 06:30] VITALS: BP 109/70
[2018-06-23 06:38] LABS: GLUCOMETER DEV NAME(LOC) BV3N5; GLUCOSE,POINT OF CARE 94 MG/DL (70-110)
[2018-06-23 08:07] VITALS: BP 115/76
[2018-06-23] MEDS: LITHIUM CARBONATE 300 MG CAPSULE PO SCH ×2 (08:10→17:32)
[2018-06-23] MEDS: MetFORMIN HCL 500 MG TABLET PO SCH (08:10)
[2018-06-23 12:23] LABS: GLUCOMETER DEV NAME(LOC) BV3N5; GLUCOSE,POINT OF CARE 51 MG/DL (70-110)
[2018-06-23 12:23] LABS: GLUCOMETER DEV NAME(LOC) BV3N5; GLUCOSE,POINT OF CARE 116 MG/DL (70-110)
[2018-06-23 16:10] VITALS: BP 111/70
[2018-06-23 16:58] LABS: GLUCOMETER DEV NAME(LOC) BV3N5; GLUCOSE,POINT OF CARE 97 MG/DL (70-110)
[2018-06-23] MEDS: LORazepam 2 MG TABLET PO PRN (17:33)
[2018-06-23] MEDS: HALOPERIDOL 5 MG TABLET PO PRN (17:33)
[2018-06-23] MEDS: CloZAPine 100 MG TABLET PO SCH (20:24)
[2018-06-23] MEDS: ZOLPIDEM TARTRATE 10 MG TABLET PO PRN (20:25)
[2018-06-23 21:18] LABS: GLUCOMETER DEV NAME(LOC) BV3N5; GLUCOSE,POINT OF CARE 143 MG/DL (70-110)
[2018-06-24 06:00] VITALS: BP 108/76
[2018-06-24 06:23] LABS: GLUCOMETER DEV NAME(LOC) BV3N5; GLUCOSE,POINT OF CARE 84 MG/DL (70-110)
[2018-06-24 08:07] LABS: BASOPHILS % (AUTO) 0.4 % (0.0-2.0); EOSINOPHILS % (AUTO) 0 % (1.0-6.0); HEMATOCRIT 38.4 % (41-53); LYMPHOCYTES # (AUTO) 1.2 K/uL (1.0-4.8); LYMPHOCYTES % (AUTO) 29.2 % (22.0-44.0); MEAN CORPUSCULAR HEMOGLOBIN 31.7 pg (26.0-34.0); MEAN CORPUSCULAR VOLUME 93 fL (80-100); MONOCYTES # (AUTO) 0.4 K/uL (0.1-1.0); MONOCYTES % (AUTO) 9.7 % (2.0-9.0); NEUTROPHILS # (AUTO) 2.5 K/uL (1.8-7.7); NEUTROPHILS % (AUTO) 60.7 % (40.0-70.0); PLATELET COUNT (AUTO) 245 K/uL (150-450); RED BLOOD CELL COUNT(AUTO) 4.12 MIL/uL (4.50-5.90); RED CELL DISTRIBUTION WIDTH 15.3 % (11.5-14.5)
[2018-06-24] MEDS: LITHIUM CARBONATE 300 MG CAPSULE PO SCH ×2 (09:54→16:20)
[2018-06-24] MEDS: MetFORMIN HCL 500 MG TABLET PO SCH (09:55)
[2018-06-24 10:33] VITALS: BP 126/67
[2018-06-24 11:48] LABS: GLUCOMETER DEV NAME(LOC) BV3N5; GLUCOSE,POINT OF CARE 80 MG/DL (70-110)
[2018-06-24 16:32] VITALS: BP 112/74
[2018-06-24 18:43] LABS: GLUCOMETER DEV NAME(LOC) BV3N5; GLUCOSE,POINT OF CARE 121 MG/DL (70-110)
[2018-06-24] MEDS: CloZAPine 100 MG TABLET PO SCH (20:05)
[2018-06-24] MEDS: ZOLPIDEM TARTRATE 10 MG TABLET PO PRN (20:12)
[2018-06-24 20:13] LABS: GLUCOMETER DEV NAME(LOC) BV3N5; GLUCOSE,POINT OF CARE 86 MG/DL (70-110)
[2018-06-25 06:35] LABS: GLUCOMETER DEV NAME(LOC) BV3N5; GLUCOSE,POINT OF CARE 86 MG/DL (70-110)
[2018-06-25 06:43] VITALS: BP 101/67
[2018-06-25 08:09] VITALS: BP 111/63
[2018-06-25] MEDS: LITHIUM CARBONATE 300 MG CAPSULE PO SCH ×2 (08:35→17:05)
[2018-06-25] MEDS: MetFORMIN HCL 500 MG TABLET PO SCH (08:35)
[2018-06-25] MEDS: FOLIC ACID 1 MG TABLET PO SCH (09:52)
[2018-06-25 13:33] LABS: GLUCOMETER DEV NAME(LOC) BV3N5; GLUCOSE,POINT OF CARE 133 MG/DL (70-110)
[2018-06-25 16:32] VITALS: BP 120/83
[2018-06-25] MEDS: LORazepam 2 MG TABLET PO PRN (17:05)
[2018-06-25] MEDS: FERROUS SULFATE 325 MG EC TABLET PO SCH (17:05)
[2018-06-25 17:18] LABS: GLUCOMETER DEV NAME(LOC) BV3N5; GLUCOSE,POINT OF CARE 91 MG/DL (70-110)
[2018-06-25] MEDS: CloZAPine 100 MG TABLET PO SCH (21:32)
[2018-06-25] MEDS: ZOLPIDEM TARTRATE 10 MG TABLET PO PRN (21:32)
[2018-06-25 22:03] LABS: GLUCOMETER DEV NAME(LOC) BV3N5; GLUCOSE,POINT OF CARE 102 MG/DL (70-110)
[2018-06-26] MEDS: FERROUS SULFATE 325 MG EC TABLET PO SCH ×2 (06:07→16:24)
[2018-06-26 06:19] LABS: GLUCOMETER DEV NAME(LOC) BV3N5; GLUCOSE,POINT OF CARE 87 MG/DL (70-110)
[2018-06-26 06:58] VITALS: BP 102/69
[2018-06-26 08:12] VITALS: BP 111/67
[2018-06-26] MEDS: MetFORMIN HCL 500 MG TABLET PO SCH (08:13)
[2018-06-26] MEDS: LITHIUM CARBONATE 300 MG CAPSULE PO SCH ×2 (08:13→16:19)
[2018-06-26] MEDS: FOLIC ACID 1 MG TABLET PO SCH (08:13)
[2018-06-26] MEDS: LORazepam 2 MG TABLET PO PRN ×2 (11:45→19:29)
[2018-06-26 16:30] VITALS: BP 118/71
[2018-06-26 16:58] LABS: GLUCOMETER DEV NAME(LOC) BV3N5; GLUCOSE,POINT OF CARE 105 MG/DL (70-110)
[2018-06-26] MEDS: HALOPERIDOL 5 MG TABLET PO PRN (19:29)
[2018-06-26] MEDS: CloZAPine 100 MG TABLET PO SCH (20:38)
[2018-06-26] MEDS: ZOLPIDEM TARTRATE 10 MG TABLET PO PRN (20:38)
[2018-06-26 20:48] LABS: GLUCOMETER DEV NAME(LOC) BV3N5; GLUCOSE,POINT OF CARE 129 MG/DL (70-110)
[2018-06-27 06:09] LABS: GLUCOMETER DEV NAME(LOC) BV3N5; GLUCOSE,POINT OF CARE 100 MG/DL (70-110)
[2018-06-27] MEDS: FERROUS SULFATE 325 MG EC TABLET PO SCH ×2 (06:12→16:19)
[2018-06-27 06:31] VITALS: BP 125/5
[2018-06-27 08:08] VITALS: BP 111/72
[2018-06-27] MEDS: MetFORMIN HCL 500 MG TABLET PO SCH (08:20)
[2018-06-27] MEDS: FOLIC ACID 1 MG TABLET PO SCH (08:20)
[2018-06-27] MEDS: LITHIUM CARBONATE 300 MG CAPSULE PO SCH ×2 (08:20→16:19)
[2018-06-27 14:08] LABS: GLUCOMETER DEV NAME(LOC) BV3N5; GLUCOSE,POINT OF CARE 76 MG/DL (70-110)
[2018-06-27] MEDS: LORazepam 2 MG TABLET PO PRN (16:19)
[2018-06-27 16:27] VITALS: BP 110/77
[2018-06-27 19:08] LABS: GLUCOMETER DEV NAME(LOC) BV3N5; GLUCOSE,POINT OF CARE 121 MG/DL (70-110)
[2018-06-27] MEDS: CloZAPine 100 MG TABLET PO SCH (20:39)
[2018-06-27] MEDS: ZOLPIDEM TARTRATE 10 MG TABLET PO PRN (20:39)
[2018-06-27 20:53] LABS: GLUCOMETER DEV NAME(LOC) BV3N5; GLUCOSE,POINT OF CARE 121 MG/DL (70-110)
[2018-06-28] MEDS: FERROUS SULFATE 325 MG EC TABLET PO SCH ×2 (06:07→16:14)
[2018-06-28 06:09] LABS: GLUCOMETER DEV NAME(LOC) BV3N5; GLUCOSE,POINT OF CARE 89 MG/DL (70-110)
[2018-06-28 06:28] VITALS: BP 105/68
[2018-06-28 08:25] VITALS: BP 113/68
[2018-06-28] MEDS: MetFORMIN HCL 500 MG TABLET PO SCH (08:59)
[2018-06-28] MEDS: FOLIC ACID 1 MG TABLET PO SCH (08:59)
[2018-06-28] MEDS: LITHIUM CARBONATE 300 MG CAPSULE PO SCH ×2 (08:59→16:14)
[2018-06-28 11:44] LABS: GLUCOMETER DEV NAME(LOC) BV3N5; GLUCOSE,POINT OF CARE 97 MG/DL (70-110)
[2018-06-28] MEDS: LORazepam 2 MG TABLET PO PRN (14:36)
[2018-06-28 16:20] VITALS: BP 122/81
[2018-06-28] MEDS: CloZAPine 100 MG TABLET PO SCH (20:25)
[2018-06-29 05:08] VITALS: BP 117/73
[2018-06-29] MEDS: FERROUS SULFATE 325 MG EC TABLET PO SCH ×2 (06:24→16:27)
[2018-06-29] MEDS: LITHIUM CARBONATE 300 MG CAPSULE PO SCH ×2 (08:11→16:27)
[2018-06-29] MEDS: FOLIC ACID 1 MG TABLET PO SCH (08:11)
[2018-06-29 08:13] VITALS: BP 112/77
[2018-06-29] MEDS: LORazepam 2 MG TABLET PO PRN ×2 (08:13→16:27)
[2018-06-29] MEDS: MetFORMIN HCL 500 MG TABLET PO SCH (08:15)
[2018-06-29 11:18] LABS: GLUCOMETER DEV NAME(LOC) BV3N5; GLUCOSE,POINT OF CARE 133 MG/DL (70-110)
[2018-06-29 16:10] VITALS: BP 125/75
[2018-06-29] MEDS: CloZAPine 100 MG TABLET PO SCH (21:06)
[2018-06-30 01:00] VITALS: BP 119/76
[2018-06-30] MEDS: FERROUS SULFATE 325 MG EC TABLET PO SCH ×2 (06:14→16:16)
[2018-06-30 08:07] VITALS: BP 113/75
[2018-06-30] MEDS: FOLIC ACID 1 MG TABLET PO SCH (09:17)
[2018-06-30] MEDS: LORazepam 2 MG TABLET PO PRN ×2 (09:17→16:16)
[2018-06-30] MEDS: MetFORMIN HCL 500 MG TABLET PO SCH (09:17)
[2018-06-30] MEDS: HALOPERIDOL 5 MG TABLET PO PRN (09:17)
[2018-06-30] MEDS: LITHIUM CARBONATE 300 MG CAPSULE PO SCH ×2 (09:17→16:16)
[2018-06-30 16:13] VITALS: BP 123/69
[2018-06-30] MEDS: CloZAPine 100 MG TABLET PO SCH (20:43)
[2018-07-01 05:35] VITALS: BP 109/66
[2018-07-01] MEDS: FERROUS SULFATE 325 MG EC TABLET PO SCH ×2 (06:43→16:29)
[2018-07-01 08:09] VITALS: BP 118/75
[2018-07-01 08:20] LABS: BASOPHILS % (AUTO) 0.4 % (0.0-2.0); EOSINOPHILS % (AUTO) 0 % (1.0-6.0); HEMATOCRIT 42.4 % (41-53); HEMOGLOBIN 14.2 g/dL (13.5-17.5); LYMPHOCYTES # (AUTO) 1.5 K/uL (1.0-4.8); LYMPHOCYTES % (AUTO) 29.8 % (22.0-44.0); MEAN CORPUSCULAR HEMOGLOBIN 31.2 pg (26.0-34.0); MEAN CORPUSCULAR HGB CONC 33.6 G/dL (31.0-37.0); MEAN CORPUSCULAR VOLUME 93 fL (80-100); MONOCYTES # (AUTO) 0.4 K/uL (0.1-1.0); MONOCYTES % (AUTO) 8.2 % (2.0-9.0); NEUTROPHILS % (AUTO) 61.6 % (40.0-70.0); PLATELET COUNT (AUTO) 336 K/uL (150-450); RED BLOOD CELL COUNT(AUTO) 4.56 MIL/uL (4.50-5.90); RED CELL DISTRIBUTION WIDTH 15.2 % (11.5-14.5)
[2018-07-01] MEDS: MetFORMIN HCL 500 MG TABLET PO SCH (08:53)
[2018-07-01] MEDS: HALOPERIDOL 5 MG TABLET PO PRN ×2 (08:53→16:29)
[2018-07-01] MEDS: LORazepam 2 MG TABLET PO PRN ×2 (08:53→16:29)
[2018-07-01] MEDS: FOLIC ACID 1 MG TABLET PO SCH (08:53)
[2018-07-01] MEDS: LITHIUM CARBONATE 300 MG CAPSULE PO SCH ×2 (08:53→16:29)
[2018-07-01] MEDS ORDERED: CLOZ100 PO (12:31)
[2018-07-01] MEDS ORDERED: FERR-89 PO (12:31)
[2018-07-01] MEDS ORDERED: FOLI1 PO (12:31)
[2018-07-01] MEDS ORDERED: METF-960 PO (12:34)
[2018-07-01 16:09] VITALS: BP 114/73
[2018-07-01] MEDS: CloZAPine 100 MG TABLET PO SCH (20:52)
[2018-07-01] MEDS: ZOLPIDEM TARTRATE 10 MG TABLET PO PRN (20:52)
[2018-07-02 03:35] VITALS: BP 110/76
[2018-07-02] MEDS: FERROUS SULFATE 325 MG EC TABLET PO SCH (06:59)
[2018-07-02 08:20] VITALS: BP 119/73
[2018-07-02] MEDS: FOLIC ACID 1 MG TABLET PO SCH (09:42)
[2018-07-02] MEDS: MetFORMIN HCL 500 MG TABLET PO SCH (09:42)
[2018-07-02] MEDS: LITHIUM CARBONATE 300 MG CAPSULE PO SCH (09:42)
== END 2018-07-02 13:15 | disposition home or self-care (01) | DRG 885 ==
LOC: B3A 13:56
PROVIDERS: ADMIT Psychiatry & Neurology Psychiatry; ATTEND Psychiatry & Neurology Psychiatry
DX: F25.0 Schizoaffective disorder, bipolar type (principal); F10.10 Alcohol abuse, uncomplicated; E11.9 Type 2 diabetes mellitus without complications; E05.90 Thyrotoxicosis, unspecified without thyrotoxic crisis or storm; D72.819 Decreased white blood cell count, unspecified; F19.10 Other psychoactive substance abuse, uncomplicated; E78.5 Hyperlipidemia, unspecified; Z59.0 Homelessness; Z28.21 Immunization not carried out because of patient refusal; Z79.899 Other long term (current) drug therapy; Z71.41 Alcohol abuse counseling and surveillance of alcoholic; Z71.51 Drug abuse counseling and surveillance of drug abuser
CPT/HCPCS: 83036; 84439; 84443

== ENCOUNTER 2018-07-03 23:23 | Inpatient (IN) | payer OTHER, MEDICAID ==
[~2018-07-03] VITALS: Ht 182.9 cm; Wt 84.8 kg
[~2018-07-03 23:23] MED LIST changes: +CLOZ100 PO; -CLOZ25TA PO; +FERR-89 PO; +FOLI1 PO; +METF-960 PO; -METF500T PO
[2018-07-03 23:49] VITALS: BP 121/93
[2018-07-04 00:14] VITALS: BP 120/86
[2018-07-04] MEDS: ZOLPIDEM TARTRATE 10 MG TABLET PO PRN (01:15)
[2018-07-04 06:48] LABS: GLUCOMETER DEV NAME(LOC) BV2N3; GLUCOSE,POINT OF CARE 103 MG/DL (70-110)
[2018-07-04] MEDS ORDERED: NICOTINE 14 MG/24 HOUR PATCH TD PRN (07:30)
[2018-07-04] MEDS ORDERED: GuaiFENesin/D-METHORPHAN [SUGAR-FREE] 200-20MG/10 ML SYRUP UDCUP PO PRN (07:30)
[2018-07-04] MEDS ORDERED: PETROLATUM,WHITE 71 GM JELLY TP PRN (07:30)
[2018-07-04] MEDS ORDERED: ONDANSETRON HCL 4 MG TABLET PO PRN (07:30)
[2018-07-04] MEDS ORDERED: ACETAMINOPHEN 325 MG TABLET PO PRN (07:30)
[2018-07-04] MEDS ORDERED: MAGNESIUM HYDROXIDE SUSPENSION 30 ML UDCUP PO PRN (07:30)
[2018-07-04] MEDS ORDERED: ALBUTEROL SULFATE HFA 90 MCG/PUFF 8 GM INHALER IH PRN (07:30)
[2018-07-04] MEDS ORDERED: DOCUSATE SODIUM 100 MG CAPSULE PO PRN (07:30)
[2018-07-04] MEDS ORDERED: CloNIDine HCL 0.1 MG TABLET PO PRN (07:30)
[2018-07-04] MEDS ORDERED: MAG HYDROX/AL HYDROX/SIMETH ES 30 ML SUSPENSION UDCUP PO PRN (07:30)
[2018-07-04] MEDS ORDERED: LOPERAMIDE HCL 2 MG CAPSULE PO PRN (07:30)
[2018-07-04] MEDS ORDERED: IBUPROFEN 400 MG TABLET PO PRN (07:30)
[2018-07-04 08:49] LABS: BASOPHILS % (AUTO) 0.4 % (0.0-2.0); EOSINOPHILS % (AUTO) 0 % (1.0-6.0); HEMATOCRIT 39.1 % (41-53); HEMOGLOBIN 13.2 g/dL (13.5-17.5); LYMPHOCYTES # (AUTO) 1.2 K/uL (1.0-4.8); LYMPHOCYTES % (AUTO) 18.2 % (22.0-44.0); MEAN CORPUSCULAR HEMOGLOBIN 31.6 pg (26.0-34.0); MEAN CORPUSCULAR HGB CONC 33.7 G/dL (31.0-37.0); MEAN CORPUSCULAR VOLUME 94 fL (80-100); MONOCYTES # (AUTO) 0.6 K/uL (0.1-1.0); MONOCYTES % (AUTO) 9.5 % (2.0-9.0); NEUTROPHILS # (AUTO) 4.9 K/uL (1.8-7.7); NEUTROPHILS % (AUTO) 71.9 % (40.0-70.0); PLATELET COUNT (AUTO) 325 K/uL (150-450); RED BLOOD CELL COUNT(AUTO) 4.17 MIL/uL (4.50-5.90); RED CELL DISTRIBUTION WIDTH 15.5 % (11.5-14.5)
[2018-07-04] MEDS: FOLIC ACID 1 MG TABLET PO SCH (08:51)
[2018-07-04] MEDS: HALOPERIDOL 5 MG TABLET PO PRN (08:51)
[2018-07-04] MEDS: LORazepam 2 MG TABLET PO PRN (08:51)
[2018-07-04 08:56] LABS: HEMOGLOBIN A1C 5.7 % (4.5-6.2)
[2018-07-04 09:07] LABS: ALANINE AMINOTRANSFERASE 23 U/L (12-78); ALBUMIN 3.5 g/dL (3.4-5.0); ALKALINE PHOSPHATASE 68 U/L (46-116); ANION GAP 6 mmol/L (8-16); ASPARTATE AMINOTRANSFERASE 25 U/L (15-37); BILIRUBIN,TOTAL 0.5 mg/dL (0.1-1.0); CALCIUM, TOTAL 8.6 mg/dL (8.8-10.5); CARBON DIOXIDE 31 mmol/L (22-29); CHLORIDE 105 mmol/L (98-107); CHOLESTEROL 152 mg/dL (131-200); CREATININE 0.84 mg/dL (0.60-1.30); FREE T4 (FREE THYROXINE) 0.63 ng/dL (0.76-1.46); GLOMERULAR FILTR. RATE CALC > 60 mL/min (>60); GLUCOSE,RANDOM 89 mg/dL (70-110); HDL CHOLESTEROL 50 mg/dL (40-60); LDL CHOL (CALC.) 91 mg/dL (0-130); POTASSIUM 4.2 mmol/L (3.5-5.1); SODIUM SERUM 142 mmol/L (136-145); THYROID STIMULATING HORMONE 0.37 uIU/mL (0.36-3.74); TOTAL PROTEIN, SERUM 6.8 g/dL (6.4-8.2); TRIGLYCERIDES 54 mg/dL (15-150); UREA NITROGEN, BLOOD 17 mg/dL (7-18)
[2018-07-04 09:09] VITALS: BP 117/74
[2018-07-04 16:24] LABS: GLUCOMETER DEV NAME(LOC) BV2N3; GLUCOSE,POINT OF CARE 107 MG/DL (70-110)
[2018-07-04] MEDS: LITHIUM CARBONATE 300 MG CAPSULE PO SCH (16:28)
[2018-07-04] MEDS: FERROUS SULFATE 325 MG EC TABLET PO SCH (16:28)
[2018-07-04 16:36] VITALS: BP 116/66
[2018-07-04] MEDS: CloZAPine 100 MG TABLET PO SCH (20:31)
[2018-07-05 02:22] VITALS: BP 124/68
[2018-07-05 06:29] LABS: GLUCOMETER DEV NAME(LOC) BV2N3; GLUCOSE,POINT OF CARE 89 MG/DL (70-110)
[2018-07-05] MEDS: MetFORMIN HCL 500 MG TABLET PO SCH (06:48)
[2018-07-05] MEDS: FERROUS SULFATE 325 MG EC TABLET PO SCH ×2 (06:48→16:00)
[2018-07-05 07:57] LABS: AMPHET/METH SCREEN,URINE NEGATIVE (NEGATIVE); BARBITURATE SCREEN, URINE NEGATIVE (NEGATIVE); BENZODIAZEPINES SCREEN,URINE NEGATIVE (NEGATIVE); CANNABINOID SCREEN,URINE POSITIVE (NEGATIVE); COCAINE SCREEN,URINE NEGATIVE (NEGATIVE); METHADONE SCREEN, URINE NEGATIVE (NEGATIVE); OPIATE SCREEN,URINE NEGATIVE (NEGATIVE)
[2018-07-05 08:01] LABS: APPEARANCE,URINE CLEAR (CLEAR); BILIRUBIN,URINE NEGATIVE (NEGATIVE); GLUCOSE, URINE (UA) NEGATIVE (NEGATIVE); KETONES,URINE NEGATIVE (NEGATIVE); LEUKOCYTE ESTERASE ,URINE NEGATIVE (NEGATIVE); NITRATE,URINE NEGATIVE (NEGATIVE); OCCULT BLOOD,URINE NEGATIVE (NEGATIVE); PH,URINE 6.5 (5.0-8.0); PHENCYCLIDINE SCREEN,URINE NEGATIVE (NEGATIVE); PROTEIN,URINE NEGATIVE (NEGATIVE); UROBILINOGEN,URINE 0.2 mg/dL (<=1.0)
[2018-07-05 08:11] VITALS: BP 117/79
[2018-07-05] MEDS: LITHIUM CARBONATE 300 MG CAPSULE PO SCH ×2 (08:41→16:00)
[2018-07-05] MEDS: LORazepam 2 MG TABLET PO PRN ×2 (08:41→16:00)
[2018-07-05] MEDS: FOLIC ACID 1 MG TABLET PO SCH (08:41)
[2018-07-05 16:08] VITALS: BP 116/75
[2018-07-05 17:04] LABS: GLUCOMETER DEV NAME(LOC) BV2N3; GLUCOSE,POINT OF CARE 83 MG/DL (70-110)
[2018-07-05] MEDS: CloZAPine 100 MG TABLET PO SCH (20:23)
[2018-07-06 00:57] VITALS: BP 120/81
[2018-07-06] MEDS: MetFORMIN HCL 500 MG TABLET PO SCH (07:05)
[2018-07-06] MEDS: FERROUS SULFATE 325 MG EC TABLET PO SCH ×2 (07:05→16:57)
[2018-07-06] MEDS: LORazepam 2 MG TABLET PO PRN (08:22)
[2018-07-06] MEDS: LITHIUM CARBONATE 300 MG CAPSULE PO SCH ×2 (08:22→16:57)
[2018-07-06] MEDS: FOLIC ACID 1 MG TABLET PO SCH (08:22)
[2018-07-06 09:30] VITALS: BP 108/77
[2018-07-06 16:11] VITALS: BP 100/66
[2018-07-06 16:53] LABS: GLUCOMETER DEV NAME(LOC) BV2N3; GLUCOSE,POINT OF CARE 82 MG/DL (70-110)
[2018-07-06] MEDS: CloZAPine 100 MG TABLET PO SCH (20:11)
[2018-07-06] MEDS: ZOLPIDEM TARTRATE 10 MG TABLET PO PRN (21:04)
[2018-07-07 05:54] LABS: GLUCOMETER DEV NAME(LOC) BV2N3; GLUCOSE,POINT OF CARE 86 MG/DL (70-110)
[2018-07-07 05:58] VITALS: BP 110/70
[2018-07-07] MEDS: MetFORMIN HCL 500 MG TABLET PO SCH (06:12)
[2018-07-07] MEDS: FERROUS SULFATE 325 MG EC TABLET PO SCH ×2 (06:12→16:32)
[2018-07-07 08:28] VITALS: BP 119/81
[2018-07-07] MEDS: LORazepam 2 MG TABLET PO PRN ×2 (08:33→13:06)
[2018-07-07] MEDS: FOLIC ACID 1 MG TABLET PO SCH (08:33)
[2018-07-07] MEDS: LITHIUM CARBONATE 300 MG CAPSULE PO SCH ×2 (08:33→16:32)
[2018-07-07] MEDS: HALOPERIDOL 5 MG TABLET PO PRN (13:06)
[2018-07-07 16:21] VITALS: BP 109/67
[2018-07-07] MEDS: CloZAPine 100 MG TABLET PO SCH (20:40)
[2018-07-08 05:12] VITALS: BP 116/70
[2018-07-08] MEDS: FERROUS SULFATE 325 MG EC TABLET PO SCH ×2 (06:09→16:34)
[2018-07-08] MEDS: MetFORMIN HCL 500 MG TABLET PO SCH (06:09)
[2018-07-08 08:25] VITALS: BP 110/76
[2018-07-08] MEDS: LITHIUM CARBONATE 300 MG CAPSULE PO SCH ×2 (08:30→16:34)
[2018-07-08] MEDS: FOLIC ACID 1 MG TABLET PO SCH (08:30)
[2018-07-08 16:13] VITALS: BP 120/71
[2018-07-08 16:54] LABS: GLUCOMETER DEV NAME(LOC) BV2S.; GLUCOSE,POINT OF CARE 87 MG/DL (70-110)
[2018-07-08 16:54] LABS: GLUCOMETER DEV NAME(LOC) BV2S.; GLUCOSE,POINT OF CARE 107 MG/DL (70-110)
[2018-07-08 16:54] LABS: GLUCOMETER DEV NAME(LOC) BV2S.; GLUCOSE,POINT OF CARE 97 MG/DL (70-110)
[2018-07-08] MEDS: CloZAPine 100 MG TABLET PO SCH (20:32)
[2018-07-09 05:17] VITALS: BP 111/73
[2018-07-09] MEDS: FERROUS SULFATE 325 MG EC TABLET PO SCH ×2 (06:32→16:40)
[2018-07-09] MEDS: MetFORMIN HCL 500 MG TABLET PO SCH (06:33)
[2018-07-09 06:39] LABS: GLUCOMETER DEV NAME(LOC) BV2S.; GLUCOSE,POINT OF CARE 89 MG/DL (70-110)
[2018-07-09 08:37] VITALS: BP 108/68
[2018-07-09] MEDS: LITHIUM CARBONATE 300 MG CAPSULE PO SCH ×2 (08:51→16:40)
[2018-07-09] MEDS: FOLIC ACID 1 MG TABLET PO SCH (08:51)
[2018-07-09 16:19] LABS: GLUCOMETER DEV NAME(LOC) BV2S.; GLUCOSE,POINT OF CARE 135 MG/DL (70-110)
[2018-07-09 16:30] VITALS: BP 118/67
[2018-07-09] MEDS: CloZAPine 100 MG TABLET PO SCH (20:37)
[2018-07-10 06:22] VITALS: BP 110/60
[2018-07-10] MEDS: MetFORMIN HCL 500 MG TABLET PO SCH (06:27)
[2018-07-10] MEDS: FERROUS SULFATE 325 MG EC TABLET PO SCH ×2 (06:27→16:34)
[2018-07-10 06:44] LABS: GLUCOMETER DEV NAME(LOC) BV2S.; GLUCOSE,POINT OF CARE 104 MG/DL (70-110)
[2018-07-10] MEDS: LITHIUM CARBONATE 300 MG CAPSULE PO SCH ×2 (08:26→16:34)
[2018-07-10] MEDS: FOLIC ACID 1 MG TABLET PO SCH (08:26)
[2018-07-10 08:40] VITALS: BP 116/68
[2018-07-10 16:14] LABS: GLUCOMETER DEV NAME(LOC) BV2S.; GLUCOSE,POINT OF CARE 110 MG/DL (70-110)
[2018-07-10 17:40] VITALS: BP 115/77
[2018-07-10] MEDS: CloZAPine 100 MG TABLET PO SCH (20:31)
[2018-07-10] MEDS: ZOLPIDEM TARTRATE 10 MG TABLET PO PRN (21:25)
[2018-07-10] MEDS: LORazepam 2 MG TABLET PO PRN (22:01)
[2018-07-11 02:51] VITALS: BP 122/80
[2018-07-11] MEDS: FERROUS SULFATE 325 MG EC TABLET PO SCH (06:31)
[2018-07-11] MEDS: MetFORMIN HCL 500 MG TABLET PO SCH (06:31)
[2018-07-11 06:43] LABS: GLUCOMETER DEV NAME(LOC) BV2S.; GLUCOSE,POINT OF CARE 87 MG/DL (70-110)
[2018-07-11] MEDS: LITHIUM CARBONATE 300 MG CAPSULE PO SCH (08:17)
[2018-07-11] MEDS: FOLIC ACID 1 MG TABLET PO SCH (08:17)
[2018-07-11 08:20] VITALS: BP 109/74
[2018-07-11 08:46] LABS: BASOPHILS % (AUTO) 0.3 % (0.0-2.0); EOSINOPHILS % (AUTO) 0 % (1.0-6.0); HEMATOCRIT 41.9 % (41-53); HEMOGLOBIN 14.1 g/dL (13.5-17.5); LYMPHOCYTES # (AUTO) 1.4 K/uL (1.0-4.8); LYMPHOCYTES % (AUTO) 28.8 % (22.0-44.0); MEAN CORPUSCULAR HGB CONC 33.6 G/dL (31.0-37.0); MEAN CORPUSCULAR VOLUME 95 fL (80-100); MONOCYTES # (AUTO) 0.5 K/uL (0.1-1.0); MONOCYTES % (AUTO) 9.9 % (2.0-9.0); NEUTROPHILS # (AUTO) 2.9 K/uL (1.8-7.7); PLATELET COUNT (AUTO) 276 K/uL (150-450); RED BLOOD CELL COUNT(AUTO) 4.41 MIL/uL (4.50-5.90); RED CELL DISTRIBUTION WIDTH 15.4 % (11.5-14.5)
[2018-07-11] MEDS ORDERED: CLOZ100 PO (11:00)
== END 2018-07-11 14:20 | disposition home or self-care (01) | DRG 885 ==
LOC: B2X 23:46 → UNDOADMIN 23:46 → B2X 07-06 09:32
PROVIDERS: ADMIT Psychiatry & Neurology Psychiatry; ATTEND Psychiatry & Neurology Psychiatry
DX: F25.0 Schizoaffective disorder, bipolar type (principal); E78.5 Hyperlipidemia, unspecified; E11.9 Type 2 diabetes mellitus without complications; D64.9 Anemia, unspecified; S93.402A Sprain of unspecified ligament of left ankle, initial encounter; F10.10 Alcohol abuse, uncomplicated; F19.10 Other psychoactive substance abuse, uncomplicated; F41.9 Anxiety disorder, unspecified; G47.00 Insomnia, unspecified; R45.87 Impulsiveness; Z88.0 Allergy status to penicillin; X58.XXXA Exposure to other specified factors, initial encounter; Y93.89 Activity, other specified; Y92.89 Other specified places as the place of occurrence of the external cause
CPT/HCPCS: 80307; 83036; 84439; 84443; 87081

== ENCOUNTER 2018-07-16 01:51 | Emergency (ER) | payer OTHER ==
[~2018-07-16] VITALS: Ht 182.9 cm; Wt 80.8 kg
[2018-07-16] MEDS ORDERED: LORazepam 2 MG/ML VIAL IM ONE (02:30)
[2018-07-16 04:00] VITALS: BP 123/74
== END 2018-07-16 04:00 | disposition home or self-care (01) ==
LOC: EMS 01:52
DX: F41.9 Anxiety disorder, unspecified (principal); E11.9 Type 2 diabetes mellitus without complications; E78.00 Pure hypercholesterolemia, unspecified; Z88.0 Allergy status to penicillin; Z79.84 Long term (current) use of oral hypoglycemic drugs
CPT/HCPCS: 96372; 99284; J2060

== ENCOUNTER 2018-07-30 10:25 | Inpatient (IN) | payer OTHER, MEDICAID ==
[~2018-07-30] VITALS: Ht 182.9 cm; Wt 80.0 kg
[2018-07-30 10:48] LABS: GLUCOSE,POINT OF CARE 93 MG/DL (70-110)
[2018-07-30 11:46] LABS: BASOPHILS % (AUTO) 0.3 % (0.0-2.0); EOSINOPHILS % (AUTO) 0 % (1.0-6.0); HEMATOCRIT 40.6 % (41-53); HEMOGLOBIN 13.8 g/dL (13.5-17.5); LYMPHOCYTES # (AUTO) 1.3 K/uL (1.0-4.8); LYMPHOCYTES % (AUTO) 23.6 % (22.0-44.0); MEAN CORPUSCULAR HEMOGLOBIN 32.3 pg (26.0-34.0); MEAN CORPUSCULAR HGB CONC 34.1 G/dL (31.0-37.0); MEAN CORPUSCULAR VOLUME 95 fL (80-100); MONOCYTES # (AUTO) 0.6 K/uL (0.1-1.0); MONOCYTES % (AUTO) 10.1 % (2.0-9.0); NEUTROPHILS # (AUTO) 3.7 K/uL (1.8-7.7); PLATELET COUNT (AUTO) 263 K/uL (150-450); RED BLOOD CELL COUNT(AUTO) 4.28 MIL/uL (4.50-5.90); RED CELL DISTRIBUTION WIDTH 15.6 % (11.5-14.5)
[2018-07-30] MEDS ORDERED: LORazepam 2 MG/ML VIAL IM ONE (12:00)
[2018-07-30] MEDS ORDERED: DiphenhydrAMINE HCL 50 MG/ML VIAL IM ONE (12:00)
[2018-07-30] MEDS ORDERED: HALOPERIDOL LACTATE 5 MG/ML VIAL IM ONE (12:00)
[2018-07-30 12:01] LABS: ANION GAP 10 mmol/L (8-16); CARBON DIOXIDE 25 mmol/L (22-29); CHLORIDE 103 mmol/L (98-107); CREATININE 0.75 mg/dL (0.60-1.30); GLOMERULAR FILTR. RATE CALC > 60 mL/min (>60); GLUCOSE,RANDOM 82 mg/dL (70-110); POTASSIUM 3.5 mmol/L (3.5-5.1); SODIUM SERUM 138 mmol/L (136-145); UREA NITROGEN, BLOOD 14 mg/dL (7-18)
[2018-07-30 12:15] LABS: ALANINE AMINOTRANSFERASE 18 U/L (12-78); ALBUMIN 3.5 g/dL (3.4-5.0); ALKALINE PHOSPHATASE 58 U/L (46-116); ASPARTATE AMINOTRANSFERASE 21 U/L (15-37); TOTAL PROTEIN, SERUM 7.3 g/dL (6.4-8.2)
[2018-07-30] MEDS ORDERED: ACETAMINOPHEN 325 MG TABLET PO PRN (13:00)
[2018-07-30] MEDS ORDERED: IBUPROFEN 400 MG TABLET PO PRN (13:00)
[2018-07-30 16:20] LABS: AMPHET/METH SCREEN,URINE POSITIVE (NEGATIVE); BARBITURATE SCREEN, URINE NEGATIVE (NEGATIVE); BENZODIAZEPINES SCREEN,URINE NEGATIVE (NEGATIVE); CANNABINOID SCREEN,URINE NEGATIVE (NEGATIVE); COCAINE SCREEN,URINE NEGATIVE (NEGATIVE); METHADONE SCREEN, URINE NEGATIVE (NEGATIVE); OPIATE SCREEN,URINE POSITIVE (NEGATIVE); PHENCYCLIDINE SCREEN,URINE NEGATIVE (NEGATIVE)
[2018-07-30 16:24] LABS: APPEARANCE,URINE CLOUDY (CLEAR); GLUCOSE, URINE (UA) NEGATIVE (NEGATIVE); KETONES,URINE 15 mg/dL (NEGATIVE); LEUKOCYTE ESTERASE ,URINE TRACE (NEGATIVE); NITRATE,URINE NEGATIVE (NEGATIVE); OCCULT BLOOD,URINE LARGE (NEGATIVE); PH,URINE 5.5 (5.0-8.0); PROTEIN,URINE SEE CONFIRM (NEGATIVE)
[2018-07-30 16:25] LABS: BILIRUBIN,URINE PRELIM. POSITIVE (NEGATIVE)
[2018-07-30 16:41] LABS: SULFOSALICYLIC ACID,URINE 3+ (Negative)
[2018-07-30 16:42] LABS: BACTERIA,URINE Few /HPF (None Seen); RBC,URINE 26-50 /HPF (0-2); SQUAMOUS EPITHELIAL CELL,UR Few /LPF (None Seen)
[2018-07-30] MEDS: LORazepam 2 MG TABLET PO PRN (22:38)
[2018-07-30] MEDS: ZOLPIDEM TARTRATE 10 MG TABLET PO PRN (22:38)
[2018-07-31 06:39] LABS: BASOPHILS % (AUTO) 0.4 % (0.0-2.0); EOSINOPHILS % (AUTO) 0 % (1.0-6.0); HEMATOCRIT 39.6 % (41-53); HEMOGLOBIN 13.5 g/dL (13.5-17.5); LYMPHOCYTES # (AUTO) 1.2 K/uL (1.0-4.8); LYMPHOCYTES % (AUTO) 30.4 % (22.0-44.0); MEAN CORPUSCULAR HEMOGLOBIN 32.1 pg (26.0-34.0); MEAN CORPUSCULAR HGB CONC 34.2 G/dL (31.0-37.0); MEAN CORPUSCULAR VOLUME 94 fL (80-100); MONOCYTES # (AUTO) 0.5 K/uL (0.1-1.0); MONOCYTES % (AUTO) 14.2 % (2.0-9.0); NEUTROPHILS # (AUTO) 2.1 K/uL (1.8-7.7); PLATELET COUNT (AUTO) 263 K/uL (150-450); RED BLOOD CELL COUNT(AUTO) 4.22 MIL/uL (4.50-5.90); RED CELL DISTRIBUTION WIDTH 15.1 % (11.5-14.5)
[2018-07-31 06:59] LABS: HEMOGLOBIN A1C 5.5 % (4.5-6.2)
[2018-07-31 07:12] LABS: CHOL/HDL RATIO 2.5 (4.2-7.3)
[2018-07-31 07:19] LABS: ALANINE AMINOTRANSFERASE 17 U/L (12-78); ALBUMIN 3.4 g/dL (3.4-5.0); ALKALINE PHOSPHATASE 56 U/L (46-116); ANION GAP 8 mmol/L (8-16); ASPARTATE AMINOTRANSFERASE 27 U/L (15-37); BILIRUBIN,TOTAL 0.7 mg/dL (0.1-1.0); CALCIUM, TOTAL 8.7 mg/dL (8.8-10.5); CARBON DIOXIDE 26 mmol/L (22-29); CHLORIDE 104 mmol/L (98-107); CREATININE 0.71 mg/dL (0.60-1.30); GLOMERULAR FILTR. RATE CALC > 60 mL/min (>60); GLUCOSE,RANDOM 81 mg/dL (70-110); POTASSIUM 3.8 mmol/L (3.5-5.1); SODIUM SERUM 138 mmol/L (136-145); THYROID STIMULATING HORMONE 0.35 uIU/mL (0.36-3.74); TOTAL PROTEIN, SERUM 7.2 g/dL (6.4-8.2); UREA NITROGEN, BLOOD 13 mg/dL (7-18)
[2018-07-31 07:39] LABS: GLUCOSE,POINT OF CARE 72 MG/DL (70-110)
[2018-07-31 08:56] VITALS: BP 113/67
[2018-07-31 09:05] VITALS: BP 113/67
[2018-07-31] MEDS ORDERED: CloNIDine HCL 0.1 MG TABLET PO PRN (09:30)
[2018-07-31] MEDS ORDERED: ONDANSETRON HCL 4 MG TABLET PO PRN (09:30)
[2018-07-31] MEDS ORDERED: MAGNESIUM HYDROXIDE SUSPENSION 30 ML UDCUP PO PRN (09:30)
[2018-07-31] MEDS ORDERED: ALBUTEROL SULFATE HFA 90 MCG/PUFF 8 GM INHALER IH PRN (09:30)
[2018-07-31] MEDS ORDERED: IBUPROFEN 400 MG TABLET PO PRN (09:30)
[2018-07-31] MEDS ORDERED: ACETAMINOPHEN 325 MG TABLET PO PRN (09:30)
[2018-07-31] MEDS ORDERED: DOCUSATE SODIUM 100 MG CAPSULE PO PRN (09:30)
[2018-07-31] MEDS ORDERED: MAG HYDROX/AL HYDROX/SIMETH ES 30 ML SUSPENSION UDCUP PO PRN (09:30)
[2018-07-31] MEDS ORDERED: GuaiFENesin/D-METHORPHAN [SUGAR-FREE] 200-20MG/10 ML SYRUP UDCUP PO PRN (09:30)
[2018-07-31] MEDS ORDERED: PETROLATUM,WHITE 71 GM JELLY TP PRN (09:30)
[2018-07-31] MEDS ORDERED: LOPERAMIDE HCL 2 MG CAPSULE PO PRN (09:30)
[2018-07-31] MEDS ORDERED: NICOTINE 14 MG/24 HOUR PATCH TD PRN (09:30)
[2018-07-31] MEDS: LITHIUM CARBONATE 300 MG CAPSULE PO SCH (16:44)
[2018-07-31 19:16] VITALS: BP 106/62
[2018-07-31] MEDS: CloZAPine 100 MG TABLET PO SCH (21:07)
[2018-07-31] MEDS: ZOLPIDEM TARTRATE 10 MG TABLET PO PRN (21:12)
[2018-08-01] MEDS: LITHIUM CARBONATE 300 MG CAPSULE PO SCH ×4 (08:20→17:11)
[2018-08-01] MEDS: BACITRACIN 28.4 GM OINTMENT TP SCH (09:00)
[2018-08-01 12:38] VITALS: BP 96/61
[2018-08-01] MEDS: HALOPERIDOL 5 MG TABLET PO PRN (12:58)
[2018-08-01] MEDS: LORazepam 2 MG TABLET PO PRN (12:58)
[2018-08-01 16:00] VITALS: BP 112/63
[2018-08-01] MEDS: CloZAPine 100 MG TABLET PO SCH (20:45)
[2018-08-02 08:58] VITALS: BP 122/75
[2018-08-02] MEDS: BACITRACIN 28.4 GM OINTMENT TP SCH (09:27)
[2018-08-02] MEDS: LITHIUM CARBONATE 300 MG CAPSULE PO SCH ×3 (09:44→17:19)
[2018-08-02] MEDS: HALOPERIDOL 5 MG TABLET PO PRN (10:56)
[2018-08-02] MEDS: LORazepam 2 MG TABLET PO PRN (10:56)
[2018-08-02] MEDS: CloZAPine 100 MG TABLET PO SCH (20:30)
[2018-08-02 21:38] VITALS: BP 120/74
[2018-08-03] MEDS: BACITRACIN 28.4 GM OINTMENT TP SCH (08:07)
[2018-08-03 08:28] VITALS: BP 107/62
[2018-08-03] MEDS: LITHIUM CARBONATE 300 MG CAPSULE PO SCH ×2 (12:09→17:00)
[2018-08-03 16:22] VITALS: BP 106/66
[2018-08-03] MEDS: CloZAPine 100 MG TABLET PO SCH (20:32)
[2018-08-04] MEDS: LITHIUM CARBONATE 300 MG CAPSULE PO SCH ×3 (08:05→16:04)
[2018-08-04] MEDS: FOLIC ACID 1 MG TABLET PO SCH (08:05)
[2018-08-04] MEDS: BACITRACIN 28.4 GM OINTMENT TP SCH (08:07)
[2018-08-04 09:38] VITALS: BP 126/74
[2018-08-04] MEDS: HALOPERIDOL 5 MG TABLET PO PRN (16:06)
[2018-08-04] MEDS: LORazepam 2 MG TABLET PO PRN (16:07)
[2018-08-04 19:54] VITALS: BP 127/85
[2018-08-04] MEDS: CloZAPine 100 MG TABLET PO SCH (20:11)
[2018-08-05] MEDS: FOLIC ACID 1 MG TABLET PO SCH (08:06)
[2018-08-05] MEDS: LITHIUM CARBONATE 300 MG CAPSULE PO SCH ×3 (08:06→16:24)
[2018-08-05] MEDS: BACITRACIN 28.4 GM OINTMENT TP SCH (08:58)
[2018-08-05 09:16] VITALS: BP 96/75
[2018-08-05 16:32] VITALS: BP 135/81
[2018-08-05] MEDS: CloZAPine 100 MG TABLET PO SCH (20:05)
[2018-08-06 08:25] VITALS: BP 122/74
[2018-08-06] MEDS: FOLIC ACID 1 MG TABLET PO SCH (08:39)
[2018-08-06] MEDS: LITHIUM CARBONATE 300 MG CAPSULE PO SCH ×3 (08:43→16:39)
[2018-08-06] MEDS: BACITRACIN 28.4 GM OINTMENT TP SCH (08:43)
[2018-08-06 17:16] VITALS: BP 118/83
[2018-08-06] MEDS: CloZAPine 100 MG TABLET PO SCH (20:11)
[2018-08-07 07:54] LABS: BASOPHILS % (AUTO) 0.4 % (0.0-2.0); EOSINOPHILS % (AUTO) 0 % (1.0-6.0); HEMATOCRIT 40.3 % (41-53); HEMOGLOBIN 14.3 g/dL (13.5-17.5); LYMPHOCYTES # (AUTO) 1.1 K/uL (1.0-4.8); LYMPHOCYTES % (AUTO) 30.8 % (22.0-44.0); MEAN CORPUSCULAR HEMOGLOBIN 33.8 pg (26.0-34.0); MEAN CORPUSCULAR HGB CONC 35.6 G/dL (31.0-37.0); MEAN CORPUSCULAR VOLUME 95 fL (80-100); MONOCYTES # (AUTO) 0.3 K/uL (0.1-1.0); NEUTROPHILS # (AUTO) 2.1 K/uL (1.8-7.7); NEUTROPHILS % (AUTO) 59.8 % (40.0-70.0); PLATELET COUNT (AUTO) 250 K/uL (150-450); RED BLOOD CELL COUNT(AUTO) 4.23 MIL/uL (4.50-5.90); RED CELL DISTRIBUTION WIDTH 14.7 % (11.5-14.5)
[2018-08-07] MEDS: FOLIC ACID 1 MG TABLET PO SCH (08:24)
[2018-08-07] MEDS: LITHIUM CARBONATE 300 MG CAPSULE PO SCH (08:24)
[2018-08-07] MEDS: BACITRACIN 28.4 GM OINTMENT TP SCH (08:24)
[2018-08-07 08:30] LABS: PLATELET MORPHOLOGY COMMENT LARGE PLTS PRESENT
[2018-08-07 09:28] VITALS: BP 127/73
[2018-08-07] MEDS ORDERED: BACI3.5O4 TP (09:29)
== END 2018-08-07 11:00 | disposition home or self-care (01) | DRG 885 ==
LOC: EMS 10:26 → B3A 14:06 → UNDOADMIN 14:06 → 3EX 07-31 08:00
PROVIDERS: ADMIT Psychiatry & Neurology Psychiatry; ATTEND Psychiatry & Neurology Psychiatry
DX: F25.0 Schizoaffective disorder, bipolar type (principal); R45.851 Suicidal ideations; F41.9 Anxiety disorder, unspecified; S02.2XXA Fracture of nasal bones, initial encounter for closed fracture; F10.10 Alcohol abuse, uncomplicated; D64.9 Anemia, unspecified; E11.9 Type 2 diabetes mellitus without complications; X58.XXXA Exposure to other specified factors, initial encounter; F15.10 Other stimulant abuse, uncomplicated; E78.5 Hyperlipidemia, unspecified; D72.819 Decreased white blood cell count, unspecified; M25.472 Effusion, left ankle; Z88.0 Allergy status to penicillin; Z88.8 Allergy status to other drugs, medicaments and biological substances; Z59.0 Homelessness; Z71.41 Alcohol abuse counseling and surveillance of alcoholic; Y93.89 Activity, other specified; Y92.89 Other specified places as the place of occurrence of the external cause; Y99.8 Other external cause status; Z79.84 Long term (current) use of oral hypoglycemic drugs
CPT/HCPCS: 70486; 83036; 84443; 87081; 96372; G0378; G0480; J1200; J1630; J2060

== ENCOUNTER 2018-09-11 14:51 | Emergency (ER) | payer OTHER ==
[~2018-09-11] VITALS: Ht 182.9 cm; Wt 81.8 kg
[~2018-09-11 14:51] MED LIST changes: +BACI3.5O4 TP; -FERR-89 PO; -METF-960 PO
[2018-09-11 17:14] VITALS: BP 115/65
== END 2018-09-11 17:15 | disposition home or self-care (01) ==
LOC: EMS 14:52
DX: R33.9 Retention of urine, unspecified (principal); R30.9 Painful micturition, unspecified; R30.0 Dysuria; F20.9 Schizophrenia, unspecified; E11.9 Type 2 diabetes mellitus without complications; E78.00 Pure hypercholesterolemia, unspecified; F41.9 Anxiety disorder, unspecified; Z88.0 Allergy status to penicillin; Z79.899 Other long term (current) drug therapy

== ENCOUNTER 2018-09-23 16:37 | Emergency (ER) | payer OTHER ==
[~2018-09-23] VITALS: Ht 182.9 cm; Wt 81.8 kg
[2018-09-23 17:09] LABS: GLUCOSE,POINT OF CARE 97 MG/DL (70-110)
[2018-09-23 17:34] LABS: BASOPHILS % (AUTO) 0.4 % (0.0-2.0); EOSINOPHILS % (AUTO) 0 % (1.0-6.0); HEMATOCRIT 42.8 % (41-53); HEMOGLOBIN 14.7 g/dL (13.5-17.5); LYMPHOCYTES # (AUTO) 0.6 K/uL (1.0-4.8); LYMPHOCYTES % (AUTO) 22.5 % (22.0-44.0); MEAN CORPUSCULAR HEMOGLOBIN 32.1 pg (26.0-34.0); MEAN CORPUSCULAR HGB CONC 34.2 G/dL (31.0-37.0); MEAN CORPUSCULAR VOLUME 94 fL (80-100); MONOCYTES # (AUTO) 0.3 K/uL (0.1-1.0); MONOCYTES % (AUTO) 11.7 % (2.0-9.0); NEUTROPHILS # (AUTO) 1.7 K/uL (1.8-7.7); NEUTROPHILS % (AUTO) 65.4 % (40.0-70.0); PLATELET COUNT (AUTO) 211 K/uL (150-450); RED BLOOD CELL COUNT(AUTO) 4.56 MIL/uL (4.50-5.90); RED CELL DISTRIBUTION WIDTH 14.8 % (11.5-14.5)
[2018-09-23 17:46] LABS: ANION GAP 5 mmol/L (8-16); CALCIUM, TOTAL 9.1 mg/dL (8.8-10.5); CARBON DIOXIDE 29 mmol/L (22-29); CHLORIDE 101 mmol/L (98-107); CREATININE 0.86 mg/dL (0.60-1.30); GLOMERULAR FILTR. RATE CALC > 60 mL/min (>60); GLUCOSE,RANDOM 89 mg/dL (70-110); POTASSIUM 4.6 mmol/L (3.5-5.1); SODIUM SERUM 135 mmol/L (136-145); UREA NITROGEN, BLOOD 15 mg/dL (7-18)
[2018-09-23 17:51] LABS: ALANINE AMINOTRANSFERASE 17 U/L (12-78); ALBUMIN 3.7 g/dL (3.4-5.0); ALKALINE PHOSPHATASE 55 U/L (46-116); ASPARTATE AMINOTRANSFERASE 29 U/L (15-37); BILIRUBIN,TOTAL 0.4 mg/dL (0.1-1.0); TOTAL PROTEIN, SERUM 7.6 g/dL (6.4-8.2)
[2018-09-23 19:08] VITALS: BP 124/68
[2018-09-23 20:02] LABS: LITHIUM < 0.20 mmol/L (0.60-1.20)
== END 2018-09-23 19:22 | disposition left against medical advice (07) ==
LOC: EMS 16:38
DX: F20.9 Schizophrenia, unspecified (principal); R21 Rash and other nonspecific skin eruption; E11.9 Type 2 diabetes mellitus without complications; E78.00 Pure hypercholesterolemia, unspecified; F41.9 Anxiety disorder, unspecified; F12.90 Cannabis use, unspecified, uncomplicated; F17.210 Nicotine dependence, cigarettes, uncomplicated; Z79.899 Other long term (current) drug therapy; Z88.0 Allergy status to penicillin; Z91.19 Patient's noncompliance with other medical treatment and regimen
CPT/HCPCS: 80053; 80178; 82962; 85025; 99284; G0480

== ENCOUNTER 2018-10-06 10:28 | Emergency (ER) | payer OTHER ==
[~2018-10-06] VITALS: Ht 182.9 cm; Wt 95.5 kg
[~2018-10-06 10:28] MED LIST changes: -BACI3.5O4 TP; -FOLI1 PO
[2018-10-06] MEDS ORDERED: SODIUM CHLORIDE 0.9% 1,000 ML IV ONE ×2 (11:45→13:00)
[2018-10-06] MEDS ORDERED: LORazepam 2 MG/ML VIAL IVP ONE (11:45)
[2018-10-06 12:22] LABS: ANION GAP 9 mmol/L (8-16); CALCIUM, TOTAL 9.2 mg/dL (8.8-10.5); CARBON DIOXIDE 28 mmol/L (22-29); CHLORIDE 103 mmol/L (98-107); GLOMERULAR FILTR. RATE CALC > 60 mL/min (>60); GLUCOSE,RANDOM 71 mg/dL (70-110); POTASSIUM 3.9 mmol/L (3.5-5.1); SODIUM SERUM 140 mmol/L (136-145); UREA NITROGEN, BLOOD 19 mg/dL (7-18)
[2018-10-06 12:23] LABS: BASOPHILS % (AUTO) 0.1 % (0.0-2.0); EOSINOPHILS % (AUTO) 0.3 % (1.0-6.0); HEMATOCRIT 42.8 % (41-53); HEMOGLOBIN 14.3 g/dL (13.5-17.5); LYMPHOCYTES # (AUTO) 0.1 K/uL (1.0-4.8); LYMPHOCYTES % (AUTO) 8.5 % (22.0-44.0); MEAN CORPUSCULAR HGB CONC 33.5 G/dL (31.0-37.0); MEAN CORPUSCULAR VOLUME 96 fL (80-100); MONOCYTES % (AUTO) 0.4 % (2.0-9.0); NEUTROPHILS # (AUTO) 1.6 K/uL (1.8-7.7); PLATELET COUNT (AUTO) 245 K/uL (150-450); RED BLOOD CELL COUNT(AUTO) 4.47 MIL/uL (4.50-5.90); RED CELL DISTRIBUTION WIDTH 14.4 % (11.5-14.5)
[2018-10-06 12:28] LABS: ALANINE AMINOTRANSFERASE 20 U/L (12-78); ALBUMIN 3.6 g/dL (3.4-5.0); ALKALINE PHOSPHATASE 53 U/L (46-116); ASPARTATE AMINOTRANSFERASE 20 U/L (15-37); BILIRUBIN,TOTAL 0.3 mg/dL (0.1-1.0); LIPASE 262 U/L (73-393)
[2018-10-06 12:33] LABS: NEUTROPHILS % (AUTO) 90.7 % (40.0-70.0)
[2018-10-06 14:24] LABS: APPEARANCE,URINE CLEAR (CLEAR); BILIRUBIN,URINE NEGATIVE (NEGATIVE); GLUCOSE, URINE (UA) NEGATIVE (NEGATIVE); KETONES,URINE NEGATIVE (NEGATIVE); LEUKOCYTE ESTERASE ,URINE NEGATIVE (NEGATIVE); NITRATE,URINE NEGATIVE (NEGATIVE); OCCULT BLOOD,URINE NEGATIVE (NEGATIVE); PROTEIN,URINE NEGATIVE (NEGATIVE); UROBILINOGEN,URINE 0.2 mg/dL (<=1.0)
[2018-10-06 14:31] LABS: AMPHET/METH SCREEN,URINE NEGATIVE (NEGATIVE); BARBITURATE SCREEN, URINE NEGATIVE (NEGATIVE); BENZODIAZEPINES SCREEN,URINE NEGATIVE (NEGATIVE); CANNABINOID SCREEN,URINE POSITIVE (NEGATIVE); COCAINE SCREEN,URINE NEGATIVE (NEGATIVE); METHADONE SCREEN, URINE NEGATIVE (NEGATIVE); OPIATE SCREEN,URINE NEGATIVE (NEGATIVE); PHENCYCLIDINE SCREEN,URINE NEGATIVE (NEGATIVE)
[2018-10-06 14:32] LABS: BACTERIA,URINE Rare /HPF (None Seen); RBC,URINE None Seen /HPF (0-2); SQUAMOUS EPITHELIAL CELL,UR Rare /LPF (None Seen)
[2018-10-06 14:55] VITALS: BP 95/52
[2018-10-06] MEDS ORDERED: KETOROLAC TROMETHAMINE 30 MG/ML VIAL IVP ONE (15:15)
== END 2018-10-06 15:05 | disposition home or self-care (01) ==
LOC: EMS 10:29
DX: R10.84 Generalized abdominal pain (principal); R51 Headache; E11.9 Type 2 diabetes mellitus without complications; E78.00 Pure hypercholesterolemia, unspecified; F41.9 Anxiety disorder, unspecified; F20.9 Schizophrenia, unspecified; F12.90 Cannabis use, unspecified, uncomplicated; F17.210 Nicotine dependence, cigarettes, uncomplicated; Z88.0 Allergy status to penicillin; Z79.899 Other long term (current) drug therapy
CPT/HCPCS: 36415; 80053; 80307; 81001; 83690; 84484; 85025; 96374; 99285; G0480; J2060; J7030

== ENCOUNTER 2018-10-17 13:47 | Inpatient (IN) | payer OTHER, MEDICAID ==
[~2018-10-17] VITALS: Ht 182.9 cm; Wt 78.5 kg
[2018-10-17 16:58] VITALS: BP 107/64
[2018-10-17 17:48] VITALS: BP 130/78
[2018-10-17 18:14] LABS: GLUCOMETER DEV NAME(LOC) BV2S.; GLUCOSE,POINT OF CARE 122 MG/DL (70-110)
[2018-10-17] MEDS ORDERED: MAGNESIUM HYDROXIDE SUSPENSION 30 ML UDCUP PO PRN (18:15)
[2018-10-17] MEDS ORDERED: PETROLATUM,WHITE 28 GM JELLY TP PRN (18:15)
[2018-10-17] MEDS ORDERED: LOPERAMIDE HCL 2 MG CAPSULE PO PRN (18:15)
[2018-10-17] MEDS ORDERED: GuaiFENesin/D-METHORPHAN [SUGAR-FREE] 200-20MG/10 ML SYRUP UDCUP PO PRN (18:15)
[2018-10-17] MEDS ORDERED: ALBUTEROL SULFATE HFA 90 MCG/PUFF 8 GM INHALER IH PRN (18:15)
[2018-10-17] MEDS ORDERED: MAG HYDROX/AL HYDROX/SIMETH ES 30 ML SUSPENSION UDCUP PO PRN (18:15)
[2018-10-17] MEDS ORDERED: NICOTINE 14 MG/24 HOUR PATCH TD PRN (18:15)
[2018-10-17] MEDS ORDERED: DOCUSATE SODIUM 100 MG CAPSULE PO PRN (18:15)
[2018-10-17] MEDS ORDERED: IBUPROFEN 400 MG TABLET PO PRN (18:15)
[2018-10-17] MEDS ORDERED: CloNIDine HCL 0.1 MG TABLET PO PRN (18:15)
[2018-10-17] MEDS ORDERED: ONDANSETRON HCL 4 MG TABLET PO PRN (18:15)
[2018-10-17] MEDS ORDERED: ACETAMINOPHEN 325 MG TABLET PO PRN (18:15)
[2018-10-17] MEDS: HALOPERIDOL 5 MG TABLET PO PRN (20:26)
[2018-10-17] MEDS: ZOLPIDEM TARTRATE 10 MG TABLET PO PRN (20:26)
[2018-10-18 00:28] VITALS: BP 114/66
[2018-10-18] MEDS: HALOPERIDOL 5 MG TABLET PO PRN (01:04)
[2018-10-18] MEDS: LORazepam 2 MG TABLET PO PRN (01:04)
[2018-10-18 08:36] LABS: BASOPHILS % (AUTO) 0.7 % (0.0-2.0); EOSINOPHILS % (AUTO) 0 % (1.0-6.0); HEMATOCRIT 39.1 % (41-53); HEMOGLOBIN 12.9 g/dL (13.5-17.5); LYMPHOCYTES # (AUTO) 1.5 K/uL (1.0-4.8); LYMPHOCYTES % (AUTO) 34.8 % (22.0-44.0); MEAN CORPUSCULAR HEMOGLOBIN 31.5 pg (26.0-34.0); MEAN CORPUSCULAR HGB CONC 33.1 G/dL (31.0-37.0); MEAN CORPUSCULAR VOLUME 95 fL (80-100); MONOCYTES # (AUTO) 0.4 K/uL (0.1-1.0); NEUTROPHILS # (AUTO) 2.4 K/uL (1.8-7.7); NEUTROPHILS % (AUTO) 55.5 % (40.0-70.0); PLATELET COUNT (AUTO) 254 K/uL (150-450); RED BLOOD CELL COUNT(AUTO) 4.11 MIL/uL (4.50-5.90); RED CELL DISTRIBUTION WIDTH 14.4 % (11.5-14.5)
[2018-10-18 08:48] VITALS: BP 108/64
[2018-10-18 09:07] LABS: ALANINE AMINOTRANSFERASE 13 U/L (12-78); ALBUMIN 3.2 g/dL (3.4-5.0); ALKALINE PHOSPHATASE 34 U/L (46-116); ANION GAP 4 mmol/L (8-16); ASPARTATE AMINOTRANSFERASE 18 U/L (15-37); BILIRUBIN,TOTAL 0.7 mg/dL (0.1-1.0); CARBON DIOXIDE 29 mmol/L (22-29); CHLORIDE 106 mmol/L (98-107); CHOL/HDL RATIO 3.1 (4.2-7.3); CHOLESTEROL 163 mg/dL (131-200); CREATININE 0.74 mg/dL (0.60-1.30); FREE T4 (FREE THYROXINE) 0.84 ng/dL (0.76-1.46); GLOMERULAR FILTR. RATE CALC > 60 mL/min (>60); GLUCOSE,RANDOM 84 mg/dL (70-110); HDL CHOLESTEROL 52 mg/dL (40-60); LDL CHOL (CALC.) 103 mg/dL (0-130); POTASSIUM 4.1 mmol/L (3.5-5.1); SODIUM SERUM 139 mmol/L (136-145); THYROID STIMULATING HORMONE 0.49 uIU/mL (0.36-3.74); TOTAL PROTEIN, SERUM 6.9 g/dL (6.4-8.2); TRIGLYCERIDES 41 mg/dL (15-150); UREA NITROGEN, BLOOD 14 mg/dL (7-18)
[2018-10-18 09:13] LABS: HEMOGLOBIN A1C 5.7 % (4.5-6.2)
[2018-10-18] MEDS: LITHIUM CARBONATE 300 MG CAPSULE PO SCH ×2 (12:50→16:51)
[2018-10-18 16:11] VITALS: BP 101/63
[2018-10-18] MEDS: PALIPERIDONE 3 MG ER TABLET PO SCH (20:35)
[2018-10-18] MEDS: CloZAPine 100 MG TABLET PO SCH (20:36)
[2018-10-19 05:33] VITALS: BP 106/65
[2018-10-19] MEDS: LITHIUM CARBONATE 300 MG CAPSULE PO SCH ×3 (08:58→16:55)
[2018-10-19] MEDS: LORazepam 2 MG TABLET PO PRN (08:58)
[2018-10-19 09:14] VITALS: BP 113/74
[2018-10-19] MEDS ORDERED: SENNA/DOCUSATE SODIUM 8.6-50 MG TABLET PO PRN (14:00)
[2018-10-19 16:23] VITALS: BP 100/60
[2018-10-19] MEDS: CloZAPine 100 MG TABLET PO SCH (20:36)
[2018-10-19] MEDS: PALIPERIDONE 3 MG ER TABLET PO SCH (20:36)
[2018-10-20 00:47] VITALS: BP 110/71
[2018-10-20] MEDS: LITHIUM CARBONATE 300 MG CAPSULE PO SCH ×3 (08:26→16:45)
[2018-10-20 08:36] VITALS: BP 133/69
[2018-10-20 16:41] VITALS: BP 101/65
[2018-10-20] MEDS: LORazepam 2 MG TABLET PO PRN (19:56)
[2018-10-20] MEDS: PALIPERIDONE 3 MG ER TABLET PO SCH (20:46)
[2018-10-20] MEDS: CloZAPine 100 MG TABLET PO SCH (20:47)
[2018-10-21 05:59] VITALS: BP 115/70
[2018-10-21] MEDS: LITHIUM CARBONATE 300 MG CAPSULE PO SCH ×3 (08:27→16:32)
[2018-10-21 08:47] VITALS: BP 110/73
[2018-10-21] MEDS: LORazepam 2 MG TABLET PO PRN (10:59)
[2018-10-21 16:16] VITALS: BP 138/68
[2018-10-21] MEDS: CloZAPine 100 MG TABLET PO SCH (20:48)
[2018-10-21] MEDS: PALIPERIDONE 3 MG ER TABLET PO SCH (20:48)
[2018-10-22 05:19] VITALS: BP 122/78
[2018-10-22] MEDS: LITHIUM CARBONATE 300 MG CAPSULE PO SCH ×3 (08:21→16:29)
[2018-10-22 08:25] LABS: BASOPHILS % (AUTO) 0.3 % (0.0-2.0); EOSINOPHILS % (AUTO) 0 % (1.0-6.0); HEMATOCRIT 42.8 % (41-53); HEMOGLOBIN 14.1 g/dL (13.5-17.5); LYMPHOCYTES # (AUTO) 1.4 K/uL (1.0-4.8); LYMPHOCYTES % (AUTO) 25.4 % (22.0-44.0); MEAN CORPUSCULAR HEMOGLOBIN 31.5 pg (26.0-34.0); MEAN CORPUSCULAR HGB CONC 32.9 G/dL (31.0-37.0); MEAN CORPUSCULAR VOLUME 96 fL (80-100); MONOCYTES # (AUTO) 0.5 K/uL (0.1-1.0); MONOCYTES % (AUTO) 9.2 % (2.0-9.0); NEUTROPHILS # (AUTO) 3.5 K/uL (1.8-7.7); NEUTROPHILS % (AUTO) 65.1 % (40.0-70.0); PLATELET COUNT (AUTO) 283 K/uL (150-450); RED BLOOD CELL COUNT(AUTO) 4.47 MIL/uL (4.50-5.90); RED CELL DISTRIBUTION WIDTH 14.7 % (11.5-14.5)
[2018-10-22 08:26] VITALS: BP 124/75
[2018-10-22] MEDS: LORazepam 2 MG TABLET PO PRN (08:44)
[2018-10-22 16:20] VITALS: BP 111/62
[2018-10-22] MEDS: CloZAPine 100 MG TABLET PO SCH (20:46)
[2018-10-22] MEDS: PALIPERIDONE 3 MG ER TABLET PO SCH (20:47)
[2018-10-23 06:30] VITALS: BP 111/66
[2018-10-23 08:19] VITALS: BP 107/70
[2018-10-23] MEDS: LITHIUM CARBONATE 300 MG CAPSULE PO SCH ×3 (08:41→16:36)
[2018-10-23 16:47] VITALS: BP 110/74
[2018-10-23] MEDS: CloZAPine 100 MG TABLET PO SCH (20:44)
[2018-10-23] MEDS: PALIPERIDONE 3 MG ER TABLET PO SCH (20:44)
[2018-10-23] MEDS: ZOLPIDEM TARTRATE 10 MG TABLET PO PRN (21:21)
[2018-10-24 06:25] VITALS: BP 107/69
[2018-10-24 08:17] VITALS: BP 107/76
[2018-10-24] MEDS: LITHIUM CARBONATE 300 MG CAPSULE PO SCH ×3 (08:40→16:34)
[2018-10-24 16:56] VITALS: BP 107/69
[2018-10-24] MEDS: PALIPERIDONE 3 MG ER TABLET PO SCH (20:36)
[2018-10-24] MEDS: CloZAPine 100 MG TABLET PO SCH (20:36)
[2018-10-25 06:40] VITALS: BP 112/63
[2018-10-25] MEDS: LITHIUM CARBONATE 300 MG CAPSULE PO SCH ×3 (08:11→16:48)
[2018-10-25 08:18] VITALS: BP 112/79
[2018-10-25 16:19] VITALS: BP 110/76
[2018-10-25] MEDS: CloZAPine 100 MG TABLET PO SCH (20:38)
[2018-10-25] MEDS: PALIPERIDONE 3 MG ER TABLET PO SCH (20:38)
[2018-10-26 01:18] VITALS: BP 108/62
[2018-10-26] MEDS ORDERED: PNEUMOCOCCAL VACCINE POLYVALENT 0.5 ML VIAL [PPSV23] IM ONE (02:30)
[2018-10-26] MEDS: LITHIUM CARBONATE 300 MG CAPSULE PO SCH ×3 (08:28→16:27)
[2018-10-26 08:30] VITALS: BP 110/75
[2018-10-26 16:10] VITALS: BP 108/78
[2018-10-26] MEDS: PALIPERIDONE 3 MG ER TABLET PO SCH (20:03)
[2018-10-26] MEDS: CloZAPine 100 MG TABLET PO SCH (20:03)
[2018-10-27 01:24] VITALS: BP 102/63
[2018-10-27] MEDS: LITHIUM CARBONATE 300 MG CAPSULE PO SCH ×3 (08:21→16:40)
[2018-10-27 08:28] VITALS: BP 112/68
[2018-10-27 16:18] VITALS: BP 132/74
[2018-10-27] MEDS: PALIPERIDONE 3 MG ER TABLET PO SCH (20:34)
[2018-10-27] MEDS: CloZAPine 100 MG TABLET PO SCH (20:35)
[2018-10-28 03:42] VITALS: BP 111/69
[2018-10-28] MEDS: LITHIUM CARBONATE 300 MG CAPSULE PO SCH ×3 (08:11→16:37)
[2018-10-28] MEDS: OMEGA-3/DHA/EPA/FISH OIL 1,000 MG CAPSULE PO SCH (08:11)
[2018-10-28 08:32] VITALS: BP 111/75
[2018-10-28] MEDS ORDERED: PALIPERIDONE PALMITATE 234 MG/1.5 ML SYRINGE IM ONE (11:15)
[2018-10-28 16:21] VITALS: BP 113/72
[2018-10-28] MEDS: PALIPERIDONE 3 MG ER TABLET PO SCH (20:34)
[2018-10-28] MEDS: CloZAPine 100 MG TABLET PO SCH (20:34)
[2018-10-29 05:49] VITALS: BP 134/72
[2018-10-29] MEDS: BACITRACIN 28.4 GM OINTMENT TP SCH ×2 (08:16→17:01)
[2018-10-29] MEDS: LITHIUM CARBONATE 300 MG CAPSULE PO SCH ×3 (08:16→16:39)
[2018-10-29] MEDS: OMEGA-3/DHA/EPA/FISH OIL 1,000 MG CAPSULE PO SCH (08:16)
[2018-10-29 08:21] LABS: BASOPHILS % (AUTO) 0.5 % (0.0-2.0); EOSINOPHILS % (AUTO) 0 % (1.0-6.0); HEMATOCRIT 40.7 % (41-53); HEMOGLOBIN 13.3 g/dL (13.5-17.5); LYMPHOCYTES # (AUTO) 1.4 K/uL (1.0-4.8); LYMPHOCYTES % (AUTO) 32.2 % (22.0-44.0); MEAN CORPUSCULAR HEMOGLOBIN 31.2 pg (26.0-34.0); MEAN CORPUSCULAR HGB CONC 32.8 G/dL (31.0-37.0); MEAN CORPUSCULAR VOLUME 95 fL (80-100); MONOCYTES # (AUTO) 0.7 K/uL (0.1-1.0); MONOCYTES % (AUTO) 14.9 % (2.0-9.0); NEUTROPHILS # (AUTO) 2.3 K/uL (1.8-7.7); NEUTROPHILS % (AUTO) 52.4 % (40.0-70.0); PLATELET COUNT (AUTO) 276 K/uL (150-450); RED BLOOD CELL COUNT(AUTO) 4.28 MIL/uL (4.50-5.90); RED CELL DISTRIBUTION WIDTH 14.5 % (11.5-14.5)
[2018-10-29 08:23] VITALS: BP 118/68
[2018-10-29] MEDS ORDERED: PALI6 PO (10:08)
[2018-10-29] MEDS ORDERED: OMEG-135 PO (10:08)
[2018-10-29] MEDS ORDERED: BACI30OI6 TP (10:08)
[2018-10-29 16:38] VITALS: BP 112/74
[2018-10-29] MEDS: CloZAPine 100 MG TABLET PO SCH (20:35)
[2018-10-29] MEDS: PALIPERIDONE 3 MG ER TABLET PO SCH (20:35)
[2018-10-30 00:53] VITALS: BP 116/62
[2018-10-30 08:25] VITALS: BP 119/75
[2018-10-30] MEDS: BACITRACIN 28.4 GM OINTMENT TP SCH ×2 (08:27→16:43)
[2018-10-30] MEDS: OMEGA-3/DHA/EPA/FISH OIL 1,000 MG CAPSULE PO SCH (08:27)
[2018-10-30] MEDS: LITHIUM CARBONATE 300 MG CAPSULE PO SCH ×3 (08:27→16:43)
[2018-10-30 16:10] VITALS: BP 125/86
[2018-10-30] MEDS: CloZAPine 100 MG TABLET PO SCH (20:35)
[2018-10-30] MEDS: ZOLPIDEM TARTRATE 10 MG TABLET PO PRN (20:51)
[2018-10-31 00:39] VITALS: BP 126/82
[2018-10-31] MEDS: OMEGA-3/DHA/EPA/FISH OIL 1,000 MG CAPSULE PO SCH (08:05)
[2018-10-31] MEDS: BACITRACIN 28.4 GM OINTMENT TP SCH ×2 (08:05→16:20)
[2018-10-31] MEDS: LITHIUM CARBONATE 300 MG CAPSULE PO SCH ×3 (08:05→16:20)
[2018-10-31 08:28] VITALS: BP 118/72
[2018-10-31] MEDS: LORazepam 2 MG TABLET PO PRN (09:53)
[2018-10-31 16:42] VITALS: BP 117/73
[2018-10-31] MEDS ORDERED: PALIPERIDONE PALMITATE 234 MG/1.5 ML SYRINGE IM ONE (16:45)
[2018-10-31] MEDS ORDERED: PALI234D IM (17:45)
[2018-11-27] MEDS ORDERED: PALIPERIDONE PALMITATE 234 MG/1.5 ML SYRINGE IM ONE (09:00)
[2018-11-28] MEDS ORDERED: PALIPERIDONE PALMITATE 234 MG/1.5 ML SYRINGE IM SCH (09:00)
== END 2018-10-31 18:23 | disposition home or self-care (01) | DRG 885 ==
LOC: B2X 16:46
PROVIDERS: ADMIT Psychiatry & Neurology Psychiatry; ATTEND Psychiatry & Neurology Psychiatry
DX: F25.0 Schizoaffective disorder, bipolar type (principal); R45.851 Suicidal ideations; Z28.21 Immunization not carried out because of patient refusal; Z59.0 Homelessness; D64.9 Anemia, unspecified; D72.819 Decreased white blood cell count, unspecified; E11.9 Type 2 diabetes mellitus without complications; E78.5 Hyperlipidemia, unspecified; F10.10 Alcohol abuse, uncomplicated; F41.9 Anxiety disorder, unspecified; K21.9 Gastro-esophageal reflux disease without esophagitis; Z91.19 Patient's noncompliance with other medical treatment and regimen; F19.10 Other psychoactive substance abuse, uncomplicated; Z71.41 Alcohol abuse counseling and surveillance of alcoholic; Z71.51 Drug abuse counseling and surveillance of drug abuser
CPT/HCPCS: 82728; 83036; 83540; 83550; 84436; 84439; 84443; 87081

== ENCOUNTER 2019-01-05 19:25 | Inpatient (IN) | payer OTHER, MEDICAID ==
[~2019-01-05] VITALS: Ht 182.9 cm; Wt 86.2 kg
[~2019-01-05 19:25] MED LIST changes: +OMEG-135 PO; +PALI234D IM
[2019-01-05 20:43] VITALS: BP 107/65
[2019-01-05] MEDS ORDERED: PNEUMOCOCCAL VACCINE POLYVALENT 0.5 ML VIAL [PPSV23] IM ONE (20:45)
[2019-01-05] MEDS: LORazepam 2 MG TABLET PO PRN (21:08)
[2019-01-05] MEDS: ZOLPIDEM TARTRATE 10 MG TABLET PO PRN (21:28)
[2019-01-05] MEDS ORDERED: ACETAMINOPHEN 325 MG TABLET PO PRN (22:00)
[2019-01-05] MEDS ORDERED: PETROLATUM,WHITE 28 GM JELLY TP PRN (22:00)
[2019-01-05] MEDS ORDERED: DOCUSATE SODIUM 100 MG CAPSULE PO PRN (22:00)
[2019-01-05] MEDS ORDERED: LOPERAMIDE HCL 2 MG CAPSULE PO PRN (22:00)
[2019-01-05] MEDS ORDERED: CloNIDine HCL 0.1 MG TABLET PO PRN (22:00)
[2019-01-05] MEDS ORDERED: GuaiFENesin/D-METHORPHAN [SUGAR-FREE] 200-20MG/10 ML SYRUP UDCUP PO PRN (22:00)
[2019-01-05] MEDS ORDERED: MAG HYDROX/AL HYDROX/SIMETH ES 30 ML SUSPENSION UDCUP PO PRN (22:00)
[2019-01-05] MEDS ORDERED: MAGNESIUM HYDROXIDE SUSPENSION 30 ML UDCUP PO PRN (22:00)
[2019-01-05] MEDS ORDERED: ONDANSETRON HCL 4 MG TABLET PO PRN (22:00)
[2019-01-05] MEDS ORDERED: ALBUTEROL SULFATE HFA 90 MCG/PUFF 8 GM INHALER IH PRN (22:00)
[2019-01-05] MEDS ORDERED: NICOTINE 14 MG/24 HOUR PATCH TD PRN (22:00)
[2019-01-05] MEDS ORDERED: IBUPROFEN 400 MG TABLET PO PRN (22:00)
[2019-01-06 05:51] VITALS: BP 112/72
[2019-01-06 08:20] VITALS: BP 107/63
[2019-01-06 08:22] LABS: BASOPHILS % (AUTO) 0.3 % (0.0-2.0); EOSINOPHILS % (AUTO) 0 % (1.0-6.0); HEMOGLOBIN 12.2 g/dL (13.5-17.5); LYMPHOCYTES # (AUTO) 1.5 K/uL (1.0-4.8); LYMPHOCYTES % (AUTO) 39.8 % (22.0-44.0); MEAN CORPUSCULAR HEMOGLOBIN 32.2 pg (26.0-34.0); MEAN CORPUSCULAR HGB CONC 33.1 G/dL (31.0-37.0); MEAN CORPUSCULAR VOLUME 97 fL (80-100); MONOCYTES # (AUTO) 0.4 K/uL (0.1-1.0); MONOCYTES % (AUTO) 9.7 % (2.0-9.0); NEUTROPHILS # (AUTO) 1.8 K/uL (1.8-7.7); NEUTROPHILS % (AUTO) 50.2 % (40.0-70.0); PLATELET COUNT (AUTO) 198 K/uL (150-450)
[2019-01-06 08:30] LABS: HEMOGLOBIN A1C 5.6 % (4.5-6.2)
[2019-01-06 09:19] LABS: ALANINE AMINOTRANSFERASE 10 U/L (12-78); ALKALINE PHOSPHATASE 35 U/L (46-116); ANION GAP 8 mmol/L (8-16); ASPARTATE AMINOTRANSFERASE 14 U/L (15-37); BILIRUBIN,TOTAL 0.3 mg/dL (0.1-1.0); CALCIUM, TOTAL 8.2 mg/dL (8.8-10.5); CARBON DIOXIDE 27 mmol/L (22-29); CHLORIDE 108 mmol/L (98-107); CHOLESTEROL 133 mg/dL (131-200); CREATININE 0.77 mg/dL (0.60-1.30); FREE T4 (FREE THYROXINE) 0.75 ng/dL (0.76-1.46); GLOMERULAR FILTR. RATE CALC > 60 mL/min (>60); GLUCOSE,RANDOM 87 mg/dL (70-110); HDL CHOLESTEROL 45 mg/dL (40-60); LDL CHOL (CALC.) 79 mg/dL (0-130); POTASSIUM 3.7 mmol/L (3.5-5.1); SODIUM SERUM 143 mmol/L (136-145); THYROID STIMULATING HORMONE 0.28 uIU/mL (0.36-3.74); TOTAL PROTEIN, SERUM 6.2 g/dL (6.4-8.2); TRIGLYCERIDES 46 mg/dL (15-150); UREA NITROGEN, BLOOD 14 mg/dL (7-18)
[2019-01-06] MEDS: LITHIUM CARBONATE 300 MG CAPSULE PO SCH ×2 (12:12→16:24)
[2019-01-06 16:00] VITALS: BP 112/66
[2019-01-06] MEDS: LORazepam 2 MG TABLET PO PRN (16:24)
[2019-01-06] MEDS ORDERED: CloZAPine 100 MG TABLET PO SCH (21:00)
[2019-01-07 04:17] VITALS: BP 116/75
[2019-01-07 08:24] VITALS: BP 102/60
[2019-01-07] MEDS: LITHIUM CARBONATE 300 MG CAPSULE PO SCH ×3 (08:32→16:25)
[2019-01-07] MEDS: OMEGA-3/DHA/EPA/FISH OIL 1,000 MG CAPSULE PO SCH (08:32)
[2019-01-07] MEDS: HALOPERIDOL 5 MG TABLET PO PRN (09:25)
[2019-01-07] MEDS: LORazepam 2 MG TABLET PO PRN (09:25)
[2019-01-07 16:17] VITALS: BP 110/64
[2019-01-07 21:29] LABS: GLUCOMETER DEV NAME(LOC) BV3N.; GLUCOSE,POINT OF CARE 97 MG/DL (70-110)
[2019-01-08] MEDS: ZOLPIDEM TARTRATE 10 MG TABLET PO PRN (00:44)
[2019-01-08 05:32] VITALS: BP 125/83
[2019-01-08 06:29] LABS: GLUCOMETER DEV NAME(LOC) BV3N.; GLUCOSE,POINT OF CARE 89 MG/DL (70-110)
[2019-01-08] MEDS: MetFORMIN HCL 500 MG TABLET PO SCH ×2 (06:43→16:44)
[2019-01-08 07:40] LABS: BASOPHILS % (AUTO) 0.3 % (0.0-2.0); EOSINOPHILS % (AUTO) 0 % (1.0-6.0); HEMOGLOBIN 14.8 g/dL (13.5-17.5); LYMPHOCYTES % (AUTO) 19.2 % (22.0-44.0); MEAN CORPUSCULAR HEMOGLOBIN 31.7 pg (26.0-34.0); MEAN CORPUSCULAR HGB CONC 32.9 G/dL (31.0-37.0); MEAN CORPUSCULAR VOLUME 97 fL (80-100); MONOCYTES # (AUTO) 0.4 K/uL (0.1-1.0); MONOCYTES % (AUTO) 7.9 % (2.0-9.0); NEUTROPHILS # (AUTO) 3.6 K/uL (1.8-7.7); NEUTROPHILS % (AUTO) 72.6 % (40.0-70.0); PLATELET COUNT (AUTO) 247 K/uL (150-450); RED BLOOD CELL COUNT(AUTO) 4.66 MIL/uL (4.50-5.90); RED CELL DISTRIBUTION WIDTH 14.7 % (11.5-14.5)
[2019-01-08 08:39] VITALS: BP 103/61
[2019-01-08] MEDS: OMEGA-3/DHA/EPA/FISH OIL 1,000 MG CAPSULE PO SCH (08:42)
[2019-01-08] MEDS: LITHIUM CARBONATE 600 MG CAPSULE PO SCH ×2 (08:42→16:44)
[2019-01-08] MEDS: LORazepam 2 MG TABLET PO PRN ×2 (09:08→16:44)
[2019-01-08] MEDS: HALOPERIDOL 5 MG TABLET PO PRN ×2 (09:08→16:44)
[2019-01-08 12:00] LABS: GLUCOMETER DEV NAME(LOC) BV3N.; GLUCOSE,POINT OF CARE 95 MG/DL (70-110)
[2019-01-08 16:14] VITALS: BP 109/69
[2019-01-08 16:59] LABS: GLUCOMETER DEV NAME(LOC) BV3N.; GLUCOSE,POINT OF CARE 99 MG/DL (70-110)
[2019-01-08 20:49] LABS: GLUCOMETER DEV NAME(LOC) BV3N.; GLUCOSE,POINT OF CARE 109 MG/DL (70-110)
[2019-01-09 06:10] LABS: GLUCOMETER DEV NAME(LOC) BV3N.; GLUCOSE,POINT OF CARE 81 MG/DL (70-110)
[2019-01-09] MEDS: MetFORMIN HCL 500 MG TABLET PO SCH ×2 (06:24→16:17)
[2019-01-09 06:39] VITALS: BP 117/72
[2019-01-09 08:40] VITALS: BP 116/64
[2019-01-09] MEDS: LITHIUM CARBONATE 600 MG CAPSULE PO SCH ×2 (08:41→16:17)
[2019-01-09] MEDS: OMEGA-3/DHA/EPA/FISH OIL 1,000 MG CAPSULE PO SCH (08:41)
[2019-01-09 12:14] LABS: GLUCOMETER DEV NAME(LOC) BV3N.; GLUCOSE,POINT OF CARE 90 MG/DL (70-110)
[2019-01-09] MEDS: LORazepam 2 MG TABLET PO PRN (16:17)
[2019-01-09 16:59] LABS: GLUCOMETER DEV NAME(LOC) BV3N.; GLUCOSE,POINT OF CARE 109 MG/DL (70-110)
[2019-01-09 17:16] VITALS: BP 119/83
[2019-01-09 20:44] LABS: GLUCOMETER DEV NAME(LOC) BV3N.; GLUCOSE,POINT OF CARE 115 MG/DL (70-110)
[2019-01-10 05:51] VITALS: BP 110/62
[2019-01-10 06:00] LABS: GLUCOMETER DEV NAME(LOC) BV3N.; GLUCOSE,POINT OF CARE 82 MG/DL (70-110)
[2019-01-10] MEDS: MetFORMIN HCL 500 MG TABLET PO SCH ×2 (06:34→16:40)
[2019-01-10 08:02] LABS: BASOPHILS % (AUTO) 0.5 % (0.0-2.0); EOSINOPHILS % (AUTO) 0 % (1.0-6.0); HEMATOCRIT 45.1 % (41-53); LYMPHOCYTES # (AUTO) 1.1 K/uL (1.0-4.8); LYMPHOCYTES % (AUTO) 25.8 % (22.0-44.0); MEAN CORPUSCULAR HEMOGLOBIN 32.2 pg (26.0-34.0); MEAN CORPUSCULAR HGB CONC 33.4 G/dL (31.0-37.0); MEAN CORPUSCULAR VOLUME 97 fL (80-100); MONOCYTES # (AUTO) 0.4 K/uL (0.1-1.0); MONOCYTES % (AUTO) 8.4 % (2.0-9.0); NEUTROPHILS # (AUTO) 2.9 K/uL (1.8-7.7); NEUTROPHILS % (AUTO) 65.3 % (40.0-70.0); PLATELET COUNT (AUTO) 271 K/uL (150-450); RED BLOOD CELL COUNT(AUTO) 4.67 MIL/uL (4.50-5.90); RED CELL DISTRIBUTION WIDTH 14.6 % (11.5-14.5)
[2019-01-10 08:30] LABS: ALANINE AMINOTRANSFERASE 9 U/L (12-78); ALBUMIN 3.9 g/dL (3.4-5.0); ALKALINE PHOSPHATASE 44 U/L (46-116); ANION GAP 6 mmol/L (8-16); ASPARTATE AMINOTRANSFERASE 19 U/L (15-37); BILIRUBIN,TOTAL 0.6 mg/dL (0.1-1.0); CALCIUM, TOTAL 9.7 mg/dL (8.8-10.5); CARBON DIOXIDE 29 mmol/L (22-29); CHLORIDE 102 mmol/L (98-107); CREATININE 0.79 mg/dL (0.60-1.30); GLOMERULAR FILTR. RATE CALC > 60 mL/min (>60); GLUCOSE,RANDOM 76 mg/dL (70-110); POTASSIUM 4.6 mmol/L (3.5-5.1); SODIUM SERUM 137 mmol/L (136-145); THYROID STIMULATING HORMONE 0.76 uIU/mL (0.36-3.74); TOTAL PROTEIN, SERUM 8.4 g/dL (6.4-8.2); UREA NITROGEN, BLOOD 16 mg/dL (7-18)
[2019-01-10 08:33] LABS: LITHIUM 0.61 mmol/L (0.60-1.20)
[2019-01-10 08:38] VITALS: BP 100/72
[2019-01-10] MEDS: LITHIUM CARBONATE 600 MG CAPSULE PO SCH ×2 (09:06→16:40)
[2019-01-10] MEDS: OMEGA-3/DHA/EPA/FISH OIL 1,000 MG CAPSULE PO SCH (09:06)
[2019-01-10 11:09] LABS: GLUCOMETER DEV NAME(LOC) BV3N.; GLUCOSE,POINT OF CARE 126 MG/DL (70-110)
[2019-01-10 16:24] VITALS: BP 117/65
[2019-01-10 16:24] LABS: GLUCOMETER DEV NAME(LOC) BV3N.; GLUCOSE,POINT OF CARE 98 MG/DL (70-110)
[2019-01-10] MEDS: HALOPERIDOL 5 MG TABLET PO PRN (16:40)
[2019-01-10] MEDS: LORazepam 2 MG TABLET PO PRN (16:40)
[2019-01-10 20:18] LABS: GLUCOMETER DEV NAME(LOC) BV3N.; GLUCOSE,POINT OF CARE 90 MG/DL (70-110)
[2019-01-10] MEDS: ZOLPIDEM TARTRATE 10 MG TABLET PO PRN (20:40)
[2019-01-11] MEDS: LORazepam 2 MG TABLET PO PRN ×2 (05:28→16:37)
[2019-01-11] MEDS: HALOPERIDOL 5 MG TABLET PO PRN ×2 (05:29→16:37)
[2019-01-11 05:49] VITALS: BP 115/75
[2019-01-11 06:15] LABS: GLUCOMETER DEV NAME(LOC) BV3N.; GLUCOSE,POINT OF CARE 86 MG/DL (70-110)
[2019-01-11] MEDS: MetFORMIN HCL 500 MG TABLET PO SCH ×2 (06:23→16:36)
[2019-01-11] MEDS: LITHIUM CARBONATE 600 MG CAPSULE PO SCH ×2 (08:35→16:36)
[2019-01-11] MEDS: OMEGA-3/DHA/EPA/FISH OIL 1,000 MG CAPSULE PO SCH (08:36)
[2019-01-11 08:48] VITALS: BP 100/60
[2019-01-11 11:35] LABS: GLUCOMETER DEV NAME(LOC) BV3N.; GLUCOSE,POINT OF CARE 88 MG/DL (70-110)
[2019-01-11 16:10] LABS: GLUCOMETER DEV NAME(LOC) BV3N.; GLUCOSE,POINT OF CARE 81 MG/DL (70-110)
[2019-01-11 16:43] VITALS: BP 104/63
[2019-01-11] MEDS: ZOLPIDEM TARTRATE 10 MG TABLET PO PRN (20:29)
[2019-01-11 20:34] LABS: GLUCOMETER DEV NAME(LOC) BV3N.; GLUCOSE,POINT OF CARE 92 MG/DL (70-110)
[2019-01-12 02:56] VITALS: BP 109/69
[2019-01-12] MEDS: HALOPERIDOL 5 MG TABLET PO PRN (02:58)
[2019-01-12] MEDS: LORazepam 2 MG TABLET PO PRN (02:58)
[2019-01-12 06:29] LABS: GLUCOMETER DEV NAME(LOC) BV3N.; GLUCOSE,POINT OF CARE 83 MG/DL (70-110)
[2019-01-12] MEDS: MetFORMIN HCL 500 MG TABLET PO SCH (06:32)
[2019-01-12] MEDS: OMEGA-3/DHA/EPA/FISH OIL 1,000 MG CAPSULE PO SCH (08:17)
[2019-01-12] MEDS: LITHIUM CARBONATE 600 MG CAPSULE PO SCH (08:17)
[2019-01-12 09:28] VITALS: BP 100/60
[2019-01-12 11:40] LABS: GLUCOMETER DEV NAME(LOC) BV3N.; GLUCOSE,POINT OF CARE 89 MG/DL (70-110)
[2019-01-12] MEDS ORDERED: METF500T PO (13:00)
[2019-01-12] MEDS ORDERED: LITH600C PO (13:00)
== END 2019-01-12 14:03 | disposition home or self-care (01) | DRG 885 ==
LOC: B3A 20:09 → EDSTATUS 20:31
PROVIDERS: ADMIT Psychiatry & Neurology Psychiatry; ATTEND Psychiatry & Neurology Psychiatry
DX: F25.0 Schizoaffective disorder, bipolar type (principal); R45.851 Suicidal ideations; D64.9 Anemia, unspecified; D72.819 Decreased white blood cell count, unspecified; E11.9 Type 2 diabetes mellitus without complications; E78.5 Hyperlipidemia, unspecified; E83.51 Hypocalcemia; F19.10 Other psychoactive substance abuse, uncomplicated; F12.20 Cannabis dependence, uncomplicated; Z59.0 Homelessness; Z91.5 Personal history of self-harm; Z88.0 Allergy status to penicillin; Z71.51 Drug abuse counseling and surveillance of drug abuser
CPT/HCPCS: 83036; 84439; 84443; 86592; 87081; Q0162

== ENCOUNTER 2019-03-13 23:48 | Emergency (ER) | payer OTHER ==
[~2019-03-13] VITALS: Ht 182.9 cm; Wt 84.0 kg
[~2019-03-13 23:48] MED LIST changes: -CLOZ100 PO; -LITH300C3 PO; +LITH600C PO; +METF500T PO
[2019-03-14] VITALS: BP 131/72
[2019-03-14 00:42] LABS: AMPHET/METH SCREEN,URINE NEGATIVE (NEGATIVE); BARBITURATE SCREEN, URINE NEGATIVE (NEGATIVE); BENZODIAZEPINES SCREEN,URINE NEGATIVE (NEGATIVE); CANNABINOID SCREEN,URINE POSITIVE (NEGATIVE); COCAINE SCREEN,URINE NEGATIVE (NEGATIVE); METHADONE SCREEN, URINE NEGATIVE (NEGATIVE); OPIATE SCREEN,URINE NEGATIVE (NEGATIVE)
[2019-03-14 00:44] LABS: BASOPHILS % (AUTO) 0.8 % (0.0-2.0); EOSINOPHILS % (AUTO) 0 % (1.0-6.0); HEMATOCRIT 40.9 % (41-53); HEMOGLOBIN 13.8 g/dL (13.5-17.5); LYMPHOCYTES # (AUTO) 1.7 K/uL (1.0-4.8); LYMPHOCYTES % (AUTO) 33.8 % (22.0-44.0); MEAN CORPUSCULAR HEMOGLOBIN 32.7 pg (26.0-34.0); MEAN CORPUSCULAR HGB CONC 33.8 G/dL (31.0-37.0); MEAN CORPUSCULAR VOLUME 97 fL (80-100); MONOCYTES # (AUTO) 0.5 K/uL (0.1-1.0); NEUTROPHILS # (AUTO) 2.9 K/uL (1.8-7.7); NEUTROPHILS % (AUTO) 56.4 % (40.0-70.0); PLATELET COUNT (AUTO) 252 K/uL (150-450); RED BLOOD CELL COUNT(AUTO) 4.22 MIL/uL (4.50-5.90); RED CELL DISTRIBUTION WIDTH 14.1 % (11.5-14.5)
[2019-03-14 00:54] LABS: ANION GAP 8 mmol/L (8-16); CALCIUM, TOTAL 9.4 mg/dL (8.8-10.5); CARBON DIOXIDE 25 mmol/L (22-29); CHLORIDE 105 mmol/L (98-107); CREATININE 0.82 mg/dL (0.60-1.30); GLOMERULAR FILTR. RATE CALC > 60 mL/min (>60); GLUCOSE,RANDOM 96 mg/dL (70-110); POTASSIUM 3.7 mmol/L (3.5-5.1); SODIUM SERUM 138 mmol/L (136-145); UREA NITROGEN, BLOOD 13 mg/dL (7-18)
[2019-03-14 00:55] LABS: PHENCYCLIDINE SCREEN,URINE NEGATIVE (NEGATIVE)
[2019-03-14 01:08] LABS: ALANINE AMINOTRANSFERASE 11 U/L (12-78); ALBUMIN 3.9 g/dL (3.4-5.0); ALKALINE PHOSPHATASE 44 U/L (46-116); ASPARTATE AMINOTRANSFERASE 18 U/L (15-37); BILIRUBIN,TOTAL 0.4 mg/dL (0.1-1.0); TOTAL PROTEIN, SERUM 7.5 g/dL (6.4-8.2)
== END 2019-03-14 01:06 | disposition left against medical advice (07) ==
LOC: EMS 23:52
DX: R06.00 Dyspnea, unspecified (principal); F41.9 Anxiety disorder, unspecified; F20.9 Schizophrenia, unspecified; R06.02 Shortness of breath; E11.9 Type 2 diabetes mellitus without complications; E78.00 Pure hypercholesterolemia, unspecified; F17.210 Nicotine dependence, cigarettes, uncomplicated; F12.90 Cannabis use, unspecified, uncomplicated; Z88.0 Allergy status to penicillin; Z79.84 Long term (current) use of oral hypoglycemic drugs
CPT/HCPCS: 36415; 71045; 80053; 80307; 84484; 85025; 93005; 99285; G0480

== ENCOUNTER 2021-02-01 19:10 | Emergency (ER) | payer OTHER ==
[~2021-02-01] VITALS: Ht 182.9 cm; Wt 81.4 kg
[~2021-02-01 19:10] MED LIST changes: +BENZ1TAB10 PO; +DIVA-112 PO; +HALO10 PO; -LITH600C PO; +LITH600C5 PO; -OMEG-135 PO; -PALI234D IM; +TRAZ-257 PO
[2021-02-01 19:37] LABS: GLUCOMETER DEV NAME(LOC) ERT.5; GLUCOSE,POINT OF CARE 100 MG/DL (70-110)
[2021-02-01 20:07] LABS: BASOPHILS % (AUTO) 0.2 % (0.0-2.0); EOSINOPHILS % (AUTO) 0 % (1.0-6.0); HEMATOCRIT 35.5 % (41-53); HEMOGLOBIN 11.6 g/dL (13.5-17.5); LYMPHOCYTES % (AUTO) 36.5 % (22.0-44.0); MEAN CORPUSCULAR HEMOGLOBIN 31.5 pg (26.0-34.0); MEAN CORPUSCULAR HGB CONC 32.5 G/dL (31.0-37.0); MEAN CORPUSCULAR VOLUME 97 fL (80-100); MONOCYTES # (AUTO) 0.4 K/uL (0.1-1.0); MONOCYTES % (AUTO) 7.9 % (2.0-9.0); NEUTROPHILS % (AUTO) 55.4 % (40.0-70.0); PLATELET COUNT (AUTO) 284 K/uL (150-450); RED BLOOD CELL COUNT(AUTO) 3.67 MIL/uL (4.50-5.90); RED CELL DISTRIBUTION WIDTH 15.9 % (11.5-14.5)
[2021-02-01] MEDS ORDERED: HALOPERIDOL 5 MG TABLET PO ONE (20:15)
[2021-02-01] MEDS ORDERED: LORazepam 1 MG TABLET PO ONE (20:15)
[2021-02-01 20:19] LABS: ANION GAP 3 mmol/L (8-16); CALCIUM, TOTAL 8.4 mg/dL (8.8-10.5); CARBON DIOXIDE 29 mmol/L (22-29); CHLORIDE 104 mmol/L (98-107); CREATININE 0.64 mg/dL (0.60-1.30); GLOMERULAR FILTR. RATE CALC > 60 mL/min (>60); GLUCOSE,RANDOM 121 mg/dL (70-110); POTASSIUM 3.9 mmol/L (3.5-5.1); SODIUM SERUM 136 mmol/L (136-145); UREA NITROGEN, BLOOD 14 mg/dL (7-18)
[2021-02-01 20:21] LABS: LITHIUM 0.44 mmol/L (0.60-1.20)
[2021-02-01 20:26] LABS: ALANINE AMINOTRANSFERASE 16 U/L (12-78); ALBUMIN 3.2 g/dL (3.4-5.0); ALKALINE PHOSPHATASE 46 U/L (46-116); ASPARTATE AMINOTRANSFERASE 12 U/L (15-37); BILIRUBIN,TOTAL 0.2 mg/dL (0.1-1.0); TOTAL PROTEIN, SERUM 6.8 g/dL (6.4-8.2); VALPROIC ACID 40 mcg/mL (50-100)
[2021-02-01 21:00] VITALS: BP 113/72
== END 2021-02-01 22:00 | disposition home or self-care (01) ==
LOC: EMS 19:10
DX: F41.9 Anxiety disorder, unspecified (principal); E11.9 Type 2 diabetes mellitus without complications; E78.00 Pure hypercholesterolemia, unspecified; F20.9 Schizophrenia, unspecified; F17.210 Nicotine dependence, cigarettes, uncomplicated; F12.90 Cannabis use, unspecified, uncomplicated; Z79.84 Long term (current) use of oral hypoglycemic drugs; Z88.0 Allergy status to penicillin
CPT/HCPCS: 36415; 80053; 80164; 80178; 82962; 85025; 99283; G0480

== ENCOUNTER 2021-03-11 17:18 | Inpatient (IN) | payer OTHER, MEDICAID ==
[~2021-03-11] VITALS: Ht 185.4 cm; Wt 75.3 kg
[2021-03-11] MEDS ORDERED: LORazepam 2 MG/ML VIAL IM ONE (17:30)
[2021-03-11] MEDS ORDERED: DiphenhydrAMINE HCL 50 MG/ML VIAL IM ONE (17:30)
[2021-03-11] MEDS ORDERED: HALOPERIDOL LACTATE 5 MG/ML VIAL IM ONE (17:30)
[2021-03-11] MEDS ORDERED: HALOPERIDOL LACTATE 5 MG/ML VIAL ONE (17:31)
[2021-03-11] MEDS ORDERED: DiphenhydrAMINE HCL 50 MG/ML VIAL ONE (17:31)
[2021-03-11] MEDS ORDERED: LORazepam 2 MG/ML VIAL ONE (17:31)
[2021-03-11 18:05] LABS: BASOPHILS % (AUTO) 0.4 % (0.0-2.0); EOSINOPHILS % (AUTO) 0 % (1.0-6.0); HEMATOCRIT 37.3 % (41-53); HEMOGLOBIN 12.5 g/dL (13.5-17.5); LYMPHOCYTES # (AUTO) 1.2 K/uL (1.0-4.8); LYMPHOCYTES % (AUTO) 23.3 % (22.0-44.0); MEAN CORPUSCULAR HEMOGLOBIN 31.9 pg (26.0-34.0); MEAN CORPUSCULAR HGB CONC 33.6 G/dL (31.0-37.0); MEAN CORPUSCULAR VOLUME 95 fL (80-100); MONOCYTES # (AUTO) 0.6 K/uL (0.1-1.0); MONOCYTES % (AUTO) 10.7 % (2.0-9.0); NEUTROPHILS # (AUTO) 3.4 K/uL (1.8-7.7); NEUTROPHILS % (AUTO) 65.6 % (40.0-70.0); PLATELET COUNT (AUTO) 285 K/uL (150-450); RED BLOOD CELL COUNT(AUTO) 3.93 MIL/uL (4.50-5.90)
[2021-03-11 18:14] LABS: GLUCOMETER DEV NAME(LOC) ERT.5; GLUCOSE,POINT OF CARE 114 MG/DL (70-110)
[2021-03-11 18:15] LABS: ANION GAP 10 mmol/L (8-16); CARBON DIOXIDE 26 mmol/L (22-29); CHLORIDE 107 mmol/L (98-107); CREATININE 0.72 mg/dL (0.60-1.30); GLOMERULAR FILTR. RATE CALC > 60 mL/min (>60); GLUCOSE,RANDOM 119 mg/dL (70-110); POTASSIUM 3.2 mmol/L (3.5-5.1); SODIUM SERUM 143 mmol/L (136-145); UREA NITROGEN, BLOOD 19 mg/dL (7-18)
[2021-03-11 18:22] LABS: ALANINE AMINOTRANSFERASE 20 U/L (12-78); ALBUMIN 3.6 g/dL (3.4-5.0); ALKALINE PHOSPHATASE 50 U/L (46-116); ASPARTATE AMINOTRANSFERASE 23 U/L (15-37); BILIRUBIN,TOTAL 0.4 mg/dL (0.1-1.0); TOTAL PROTEIN, SERUM 7.9 g/dL (6.4-8.2)
[2021-03-11 18:49] LABS: LITHIUM < 0.20 mmol/L (0.60-1.20)
[2021-03-11 18:53] LABS: VALPROIC ACID < 3 mcg/mL (50-100)
[2021-03-11] MEDS ORDERED: QUEtiapine FUMARATE 100 MG TABLET PO PRN (20:00)
[2021-03-11 20:06] LABS: COVID AG,FIA SOURCE NASOPHARYNGEAL
[2021-03-11] MEDS ORDERED: DEXTROSE 50%-WATER 25 GM/50 ML SYRINGE IVP PRN (21:30)
[2021-03-11] MEDS ORDERED: POTASSIUM CHLORIDE 20 MEQ ER TABLET PO ONE (21:30)
[2021-03-11 21:46] VITALS: BP 93/60
[2021-03-12 07:03] LABS: GLUCOMETER DEV NAME(LOC) 3E.C; GLUCOSE,POINT OF CARE 73 MG/DL (70-110)
[2021-03-12] MEDS ORDERED: GuaiFENesin/D-METHORPHAN [SUGAR-FREE] 200-20MG/10 ML SYRUP UDCUP PO PRN (08:30)
[2021-03-12] MEDS ORDERED: NICOTINE 14 MG/24 HOUR PATCH TD PRN (08:30)
[2021-03-12] MEDS ORDERED: DOCUSATE SODIUM 100 MG CAPSULE PO PRN (08:30)
[2021-03-12] MEDS ORDERED: ONDANSETRON HCL 4 MG TABLET PO PRN (08:30)
[2021-03-12] MEDS ORDERED: ACETAMINOPHEN 325 MG TABLET PO PRN (08:30)
[2021-03-12] MEDS ORDERED: MAGNESIUM HYDROXIDE SUSPENSION 30 ML UDCUP PO PRN (08:30)
[2021-03-12] MEDS ORDERED: CloNIDine HCL 0.1 MG TABLET PO PRN (08:30)
[2021-03-12] MEDS ORDERED: MAG HYDROX/AL HYDROX/SIMETH ES 30 ML SUSPENSION UDCUP PO PRN (08:30)
[2021-03-12] MEDS ORDERED: ALBUTEROL SULFATE HFA 90 MCG/PUFF 8 GM INHALER IH PRN (08:30)
[2021-03-12] MEDS ORDERED: PETROLATUM,WHITE 28 GM JELLY TP PRN (08:30)
[2021-03-12] MEDS ORDERED: IBUPROFEN 400 MG TABLET PO PRN (08:30)
[2021-03-12] MEDS ORDERED: LOPERAMIDE HCL 2 MG CAPSULE PO PRN (08:30)
[2021-03-12 10:29] LABS: CHOL/HDL RATIO 2.8 (4.2-7.3); POTASSIUM 3.6 mmol/L (3.5-5.1)
[2021-03-12] MEDS: MetFORMIN HCL 500 MG TABLET PO SCH ×2 (10:29→17:45)
[2021-03-12] MEDS ORDERED: METF-960 PO (13:04)
[2021-03-12] MEDS: DIVALPROEX SODIUM 500 MG DR TABLET PO SCH (17:03)
[2021-03-12] MEDS: BENZTROPINE MESYLATE 1 MG TABLET PO SCH (17:03)
[2021-03-12] MEDS: LITHIUM CARBONATE 600 MG CAPSULE PO SCH (17:03)
[2021-03-12] MEDS: HALOPERIDOL 10 MG TABLET PO SCH (17:03)
[2021-03-12 22:13] LABS: GLUCOMETER DEV NAME(LOC) 3E.C; GLUCOSE,POINT OF CARE 127 MG/DL (70-110)
[2021-03-13 06:37] LABS: GLUCOMETER DEV NAME(LOC) 3E.C; GLUCOSE,POINT OF CARE 80 MG/DL (70-110)
[2021-03-13] MEDS: MetFORMIN HCL 500 MG TABLET PO SCH ×2 (06:58→17:32)
[2021-03-13] MEDS: BENZTROPINE MESYLATE 1 MG TABLET PO SCH ×2 (07:57→16:20)
[2021-03-13] MEDS: LITHIUM CARBONATE 600 MG CAPSULE PO SCH ×2 (07:57→16:20)
[2021-03-13] MEDS: DIVALPROEX SODIUM 500 MG DR TABLET PO SCH ×2 (07:57→16:20)
[2021-03-13] MEDS: HALOPERIDOL 10 MG TABLET PO SCH ×2 (07:57→16:20)
[2021-03-13 08:00] VITALS: BP 101/61
[2021-03-13 16:15] LABS: GLUCOMETER DEV NAME(LOC) 3E.C; GLUCOSE,POINT OF CARE 114 MG/DL (70-110)
[2021-03-13 16:32] VITALS: BP 100/64
[2021-03-13] MEDS: LORazepam 2 MG TABLET PO PRN (20:19)
[2021-03-13] MEDS: ZOLPIDEM TARTRATE 10 MG TABLET PO PRN (20:33)
[2021-03-14 06:30] LABS: GLUCOMETER DEV NAME(LOC) 3E.C; GLUCOSE,POINT OF CARE 84 MG/DL (70-110)
[2021-03-14] MEDS: MetFORMIN HCL 500 MG TABLET PO SCH ×2 (06:43→17:31)
[2021-03-14 08:27] VITALS: BP 114/84
[2021-03-14] MEDS: HALOPERIDOL 10 MG TABLET PO SCH ×2 (09:00→16:48)
[2021-03-14] MEDS: BENZTROPINE MESYLATE 1 MG TABLET PO SCH ×2 (09:00→16:48)
[2021-03-14] MEDS: DIVALPROEX SODIUM 500 MG DR TABLET PO SCH ×2 (09:00→16:48)
[2021-03-14] MEDS: LITHIUM CARBONATE 600 MG CAPSULE PO SCH ×2 (09:00→16:48)
[2021-03-14 16:38] VITALS: BP 97/62
[2021-03-14 17:04] LABS: GLUCOMETER DEV NAME(LOC) 3E.C; GLUCOSE,POINT OF CARE 81 MG/DL (70-110)
[2021-03-15 06:32] LABS: GLUCOMETER DEV NAME(LOC) 3E.C; GLUCOSE,POINT OF CARE 85 MG/DL (70-110)
[2021-03-15] MEDS: MetFORMIN HCL 500 MG TABLET PO SCH ×2 (06:49→18:55)
[2021-03-15] MEDS: BENZTROPINE MESYLATE 1 MG TABLET PO SCH ×2 (07:41→16:25)
[2021-03-15] MEDS: LITHIUM CARBONATE 600 MG CAPSULE PO SCH ×2 (07:41→16:25)
[2021-03-15] MEDS: DIVALPROEX SODIUM 500 MG DR TABLET PO SCH ×2 (07:41→16:25)
[2021-03-15] MEDS: HALOPERIDOL 10 MG TABLET PO SCH ×2 (07:42→16:25)
[2021-03-15 08:19] VITALS: BP 108/71
[2021-03-15 16:00] VITALS: BP 109/70
[2021-03-15 16:51] LABS: GLUCOMETER DEV NAME(LOC) 3E.C; GLUCOSE,POINT OF CARE 112 MG/DL (70-110)
[2021-03-16 06:37] LABS: GLUCOMETER DEV NAME(LOC) 3E.C; GLUCOSE,POINT OF CARE 84 MG/DL (70-110)
[2021-03-16] MEDS: MetFORMIN HCL 500 MG TABLET PO SCH ×2 (07:01→17:17)
[2021-03-16] MEDS: BENZTROPINE MESYLATE 1 MG TABLET PO SCH ×2 (08:36→15:55)
[2021-03-16] MEDS: LITHIUM CARBONATE 600 MG CAPSULE PO SCH ×2 (08:36→15:54)
[2021-03-16] MEDS: DIVALPROEX SODIUM 500 MG DR TABLET PO SCH ×2 (08:36→15:55)
[2021-03-16] MEDS: HALOPERIDOL 10 MG TABLET PO SCH ×2 (08:37→15:55)
[2021-03-16 16:20] LABS: GLUCOMETER DEV NAME(LOC) 3E.C; GLUCOSE,POINT OF CARE 84 MG/DL (70-110)
[2021-03-16 16:41] VITALS: BP 102/70
[2021-03-17 06:40] LABS: GLUCOMETER DEV NAME(LOC) 3E.C; GLUCOSE,POINT OF CARE 76 MG/DL (70-110)
[2021-03-17] MEDS: MetFORMIN HCL 500 MG TABLET PO SCH ×2 (06:59→18:44)
[2021-03-17 08:00] VITALS: BP 103/65
[2021-03-17] MEDS: BENZTROPINE MESYLATE 1 MG TABLET PO SCH ×2 (09:30→16:34)
[2021-03-17] MEDS: DIVALPROEX SODIUM 500 MG DR TABLET PO SCH ×2 (09:30→16:34)
[2021-03-17] MEDS: LITHIUM CARBONATE 600 MG CAPSULE PO SCH ×2 (09:31→16:34)
[2021-03-17] MEDS: HALOPERIDOL 10 MG TABLET PO SCH ×2 (09:31→16:33)
[2021-03-17] MEDS: LORazepam 2 MG TABLET PO PRN (13:50)
[2021-03-17 16:18] VITALS: BP 116/74
[2021-03-17 16:50] LABS: GLUCOMETER DEV NAME(LOC) 3E.C; GLUCOSE,POINT OF CARE 107 MG/DL (70-110)
[2021-03-18 06:29] LABS: GLUCOMETER DEV NAME(LOC) 3E.C; GLUCOSE,POINT OF CARE 87 MG/DL (70-110)
[2021-03-18] MEDS: MetFORMIN HCL 500 MG TABLET PO SCH ×2 (06:51→17:20)
[2021-03-18 08:00] VITALS: BP 95/63
[2021-03-18] MEDS: DIVALPROEX SODIUM 500 MG DR TABLET PO SCH ×2 (08:31→17:20)
[2021-03-18] MEDS: BENZTROPINE MESYLATE 1 MG TABLET PO SCH ×2 (08:31→17:19)
[2021-03-18] MEDS: LORazepam 2 MG TABLET PO PRN ×2 (08:31→20:46)
[2021-03-18] MEDS: LITHIUM CARBONATE 600 MG CAPSULE PO SCH ×2 (08:31→17:19)
[2021-03-18] MEDS: HALOPERIDOL 10 MG TABLET PO SCH ×2 (08:32→17:19)
[2021-03-18 14:54] LABS: COVID AG,FIA SOURCE NASOPHARYNGEAL
[2021-03-18 16:12] VITALS: BP 94/60
[2021-03-18 17:14] LABS: GLUCOMETER DEV NAME(LOC) 3E.C; GLUCOSE,POINT OF CARE 114 MG/DL (70-110)
[2021-03-18] MEDS: ZOLPIDEM TARTRATE 10 MG TABLET PO PRN (20:46)
[2021-03-19 05:22] LABS: GLUCOMETER DEV NAME(LOC) 3E.C; GLUCOSE,POINT OF CARE 81 MG/DL (70-110)
[2021-03-19] MEDS: MetFORMIN HCL 500 MG TABLET PO SCH ×2 (06:52→16:36)
[2021-03-19] MEDS: DIVALPROEX SODIUM 500 MG DR TABLET PO SCH ×2 (08:23→16:15)
[2021-03-19] MEDS: LITHIUM CARBONATE 600 MG CAPSULE PO SCH ×2 (08:23→16:15)
[2021-03-19] MEDS: LORazepam 2 MG TABLET PO PRN (08:23)
[2021-03-19] MEDS: HALOPERIDOL 10 MG TABLET PO SCH ×2 (08:23→16:15)
[2021-03-19] MEDS: BENZTROPINE MESYLATE 1 MG TABLET PO SCH ×2 (08:23→16:15)
[2021-03-19 08:28] VITALS: BP 113/70
[2021-03-19 16:13] VITALS: BP 109/71
[2021-03-19 16:32] LABS: GLUCOMETER DEV NAME(LOC) 3E.C; GLUCOSE,POINT OF CARE 83 MG/DL (70-110)
[2021-03-20 06:18] LABS: GLUCOMETER DEV NAME(LOC) 3E.C; GLUCOSE,POINT OF CARE 86 MG/DL (70-110)
[2021-03-20] MEDS: MetFORMIN HCL 500 MG TABLET PO SCH (06:52)
[2021-03-20 08:19] VITALS: BP 101/67
[2021-03-20] MEDS: DIVALPROEX SODIUM 500 MG DR TABLET PO SCH (08:40)
[2021-03-20] MEDS: BENZTROPINE MESYLATE 1 MG TABLET PO SCH (08:40)
[2021-03-20] MEDS: LITHIUM CARBONATE 600 MG CAPSULE PO SCH (08:41)
[2021-03-20] MEDS: HALOPERIDOL 10 MG TABLET PO SCH (08:41)
[2021-03-20] MEDS ORDERED: HALO10 PO (10:33)
[2021-03-20] MEDS ORDERED: DIVA-112 PO (10:33)
[2021-03-20] MEDS ORDERED: LITH600C5 PO (10:33)
[2021-03-20] MEDS ORDERED: BENZ1TAB10 PO (10:33)
== END 2021-03-20 15:10 | disposition home or self-care (01) | DRG 885 ==
LOC: EMS 17:27 → 3EC 21:00
DX: F25.0 Schizoaffective disorder, bipolar type (principal); Z20.822 Contact with and (suspected) exposure to COVID-19; E78.00 Pure hypercholesterolemia, unspecified; E11.9 Type 2 diabetes mellitus without complications; E78.5 Hyperlipidemia, unspecified; F17.200 Nicotine dependence, unspecified, uncomplicated; Z79.899 Other long term (current) drug therapy; F41.9 Anxiety disorder, unspecified; D64.9 Anemia, unspecified
CPT/HCPCS: 80053; 80061; 80164; 80178; 82948; 82962; 84132; 85025; 99291; G0480; J1200; J1630; J2060

== ENCOUNTER 2021-08-22 22:15 | Inpatient (IN) | payer OTHER, MEDICAID ==
[~2021-08-22] VITALS: Ht 182.9 cm; Wt 74.2 kg
[~2021-08-22 22:15] MED LIST changes: +METF-1211 PO; -METF500T PO; -TRAZ-257 PO
[2021-08-23] MEDS ORDERED: LORazepam 2 MG/ML VIAL IM ONE
[2021-08-23] MEDS ORDERED: DiphenhydrAMINE HCL 50 MG/ML VIAL IM ONE
[2021-08-23] MEDS ORDERED: HALOPERIDOL LACTATE 5 MG/ML VIAL IM ONE
[2021-08-23 00:28] LABS: COVID AG,FIA SOURCE NASOPHARYNGEAL
[2021-08-23 00:38] LABS: APPEARANCE,URINE CLEAR (CLEAR); BILIRUBIN,URINE NEGATIVE (NEGATIVE); GLUCOSE, URINE (UA) NEGATIVE (NEGATIVE); KETONES,URINE TRACE mg/dL (NEGATIVE); LEUKOCYTE ESTERASE ,URINE NEGATIVE (NEGATIVE); NITRATE,URINE NEGATIVE (NEGATIVE); OCCULT BLOOD,URINE TRACE (NEGATIVE); PH,URINE 5.5 (5.0-8.0); PROTEIN,URINE NEGATIVE (NEGATIVE); UROBILINOGEN,URINE 0.2 mg/dL (<=1.0)
[2021-08-23 00:43] LABS: AMPHET/METH SCREEN,URINE NEGATIVE (NEGATIVE); BARBITURATE SCREEN, URINE NEGATIVE (NEGATIVE); BENZODIAZEPINES SCREEN,URINE NEGATIVE (NEGATIVE); CANNABINOID SCREEN,URINE POSITIVE (NEGATIVE); COCAINE SCREEN,URINE NEGATIVE (NEGATIVE); METHADONE SCREEN, URINE NEGATIVE (NEGATIVE); OPIATE SCREEN,URINE NEGATIVE (NEGATIVE)
[2021-08-23 00:44] LABS: PHENCYCLIDINE SCREEN,URINE NEGATIVE (NEGATIVE)
[2021-08-23 00:57] LABS: ANION GAP 6 mmol/L (8-16); BASOPHILS % (AUTO) 0.5 % (0.0-2.0); CALCIUM, TOTAL 8.6 mg/dL (8.8-10.5); CARBON DIOXIDE 29 mmol/L (22-29); CHLORIDE 104 mmol/L (98-107); CREATININE 0.96 mg/dL (0.60-1.30); EOSINOPHILS % (AUTO) 0 % (1.0-6.0); GLOMERULAR FILTR. RATE CALC > 60 mL/min (>60); GLUCOSE,RANDOM 97 mg/dL (70-110); HEMATOCRIT 35.5 % (41-53); HEMOGLOBIN 11.8 g/dL (13.5-17.5); LITHIUM < 0.20 mmol/L (0.60-1.20); LYMPHOCYTES # (AUTO) 1.8 K/uL (1.0-4.8); LYMPHOCYTES % (AUTO) 34.4 % (22.0-44.0); MEAN CORPUSCULAR HEMOGLOBIN 30.6 pg (26.0-34.0); MEAN CORPUSCULAR HGB CONC 33.2 G/dL (31.0-37.0); MEAN CORPUSCULAR VOLUME 92 fL (80-100); MONOCYTES # (AUTO) 0.5 K/uL (0.1-1.0); MONOCYTES % (AUTO) 9.4 % (2.0-9.0); NEUTROPHILS % (AUTO) 55.7 % (40.0-70.0); PLATELET COUNT (AUTO) 313 K/uL (150-450); POTASSIUM 4.1 mmol/L (3.5-5.1); RED BLOOD CELL COUNT(AUTO) 3.85 MIL/uL (4.50-5.90); RED CELL DISTRIBUTION WIDTH 16.4 % (11.5-14.5); SODIUM SERUM 139 mmol/L (136-145); UREA NITROGEN, BLOOD 13 mg/dL (7-18)
[2021-08-23 01:03] LABS: ALANINE AMINOTRANSFERASE 18 U/L (12-78); ALBUMIN 3.2 g/dL (3.4-5.0); ALKALINE PHOSPHATASE 69 U/L (46-116); ASPARTATE AMINOTRANSFERASE 17 U/L (15-37); CHOL/HDL RATIO 2.7 (4.2-7.3); CHOLESTEROL 146 mg/dL (131-200); HDL CHOLESTEROL 55 mg/dL (40-60); LDL CHOL (CALC.) 79 mg/dL (0-130); TRIGLYCERIDES 61 mg/dL (15-150)
[2021-08-23 01:09] LABS: VALPROIC ACID < 3 mcg/mL (50-100)
[2021-08-23 01:20] LABS: BILIRUBIN,TOTAL 0.2 mg/dL (0.1-1.0)
[2021-08-23 01:22] LABS: BACTERIA,URINE None Seen /HPF (None Seen); RBC,URINE 0-2 /HPF (0-2); WBC,URINE 0-2 /HPF (0-5)
[2021-08-23] MEDS ORDERED: INFLUENZA VIRUS VACCINE QVS 2021-22 (6MO+)/PF 60 MCG/0.5 ML SYRINGE IM. ONE (17:30)
[2021-08-23 17:42] VITALS: BP 116/70
[2021-08-23] MEDS ORDERED: ONDANSETRON HCL 4 MG TABLET PO PRN (18:30)
[2021-08-23] MEDS ORDERED: LOPERAMIDE HCL 2 MG CAPSULE PO PRN (18:30)
[2021-08-23] MEDS ORDERED: PETROLATUM,WHITE 28 GM JELLY TP PRN (18:30)
[2021-08-23] MEDS ORDERED: GuaiFENesin/D-METHORPHAN [SUGAR-FREE] 200-20MG/10 ML SYRUP UDCUP PO PRN (18:30)
[2021-08-23] MEDS ORDERED: ACETAMINOPHEN 325 MG TABLET PO PRN (18:30)
[2021-08-23] MEDS ORDERED: ALBUTEROL SULFATE HFA 90 MCG/PUFF 8 GM INHALER IH PRN (18:30)
[2021-08-23] MEDS ORDERED: MAGNESIUM HYDROXIDE SUSPENSION 30 ML UDCUP PO PRN (18:30)
[2021-08-23] MEDS ORDERED: DOCUSATE SODIUM 100 MG CAPSULE PO PRN (18:30)
[2021-08-23] MEDS ORDERED: CloNIDine HCL 0.1 MG TABLET PO PRN (18:30)
[2021-08-23] MEDS ORDERED: MAG HYDROX/AL HYDROX/SIMETH ES 30 ML SUSPENSION UDCUP PO PRN (18:30)
[2021-08-23] MEDS ORDERED: NICOTINE 14 MG/24 HOUR PATCH TD PRN (18:30)
[2021-08-24] MEDS: MetFORMIN HCL 500 MG TABLET PO SCH ×2 (06:51→17:24)
[2021-08-24 08:00] VITALS: BP 115/79
[2021-08-24] MEDS: LITHIUM CARBONATE 600 MG CAPSULE PO SCH ×2 (12:10→17:24)
[2021-08-24] MEDS: HALOPERIDOL 10 MG TABLET PO SCH ×2 (12:10→20:05)
[2021-08-24] MEDS: DIVALPROEX SODIUM 500 MG DR TABLET PO SCH ×2 (12:10→17:24)
[2021-08-24] MEDS: BENZTROPINE MESYLATE 1 MG TABLET PO SCH ×2 (12:11→17:24)
[2021-08-24 16:10] VITALS: BP 127/77
[2021-08-24] MEDS: LORazepam 2 MG TABLET PO PRN (19:45)
[2021-08-25] MEDS: MetFORMIN HCL 500 MG TABLET PO SCH ×2 (06:47→17:49)
[2021-08-25] MEDS: LITHIUM CARBONATE 600 MG CAPSULE PO SCH ×2 (08:35→16:19)
[2021-08-25] MEDS: DIVALPROEX SODIUM 500 MG DR TABLET PO SCH ×2 (08:35→16:18)
[2021-08-25] MEDS: BENZTROPINE MESYLATE 1 MG TABLET PO SCH ×2 (08:35→16:18)
[2021-08-25] MEDS: HALOPERIDOL 10 MG TABLET PO SCH ×2 (08:36→21:02)
[2021-08-25 10:08] VITALS: BP 120/72
[2021-08-25 16:00] VITALS: BP 105/65
[2021-08-25] MEDS: HALOPERIDOL 5 MG TABLET PO PRN (16:19)
[2021-08-25] MEDS: ZOLPIDEM TARTRATE 10 MG TABLET PO PRN (21:02)
[2021-08-26] MEDS: MetFORMIN HCL 500 MG TABLET PO SCH ×2 (06:35→16:39)
[2021-08-26 08:00] VITALS: BP 105/72
[2021-08-26] MEDS: LITHIUM CARBONATE 600 MG CAPSULE PO SCH ×2 (08:17→16:39)
[2021-08-26] MEDS: BENZTROPINE MESYLATE 1 MG TABLET PO SCH ×2 (08:17→16:39)
[2021-08-26] MEDS: HALOPERIDOL 10 MG TABLET PO SCH ×2 (08:17→20:11)
[2021-08-26] MEDS: DIVALPROEX SODIUM 500 MG DR TABLET PO SCH ×2 (08:17→16:39)
[2021-08-26 16:27] VITALS: BP 102/82
[2021-08-27] MEDS: MetFORMIN HCL 500 MG TABLET PO SCH ×2 (06:46→16:35)
[2021-08-27 08:00] VITALS: BP 110/74
[2021-08-27] MEDS: DIVALPROEX SODIUM 500 MG DR TABLET PO SCH ×2 (08:50→16:35)
[2021-08-27] MEDS: LITHIUM CARBONATE 600 MG CAPSULE PO SCH ×2 (08:50→16:35)
[2021-08-27] MEDS: BENZTROPINE MESYLATE 1 MG TABLET PO SCH ×2 (08:50→16:35)
[2021-08-27] MEDS: HALOPERIDOL 10 MG TABLET PO SCH ×2 (08:51→20:05)
[2021-08-27 13:59] LABS: COVID AG,FIA SOURCE NASOPHARYNGEAL
[2021-08-27 16:00] VITALS: BP 105/74
[2021-08-28] MEDS: MetFORMIN HCL 500 MG TABLET PO SCH ×2 (06:52→17:30)
[2021-08-28] MEDS: BENZTROPINE MESYLATE 1 MG TABLET PO SCH ×2 (08:21→16:32)
[2021-08-28] MEDS: DIVALPROEX SODIUM 500 MG DR TABLET PO SCH ×2 (08:21→16:31)
[2021-08-28] MEDS: LITHIUM CARBONATE 600 MG CAPSULE PO SCH ×2 (08:22→16:31)
[2021-08-28] MEDS: HALOPERIDOL 10 MG TABLET PO SCH ×2 (08:22→21:02)
[2021-08-28 09:10] VITALS: BP 127/72
[2021-08-28] MEDS: LORazepam 2 MG TABLET PO PRN (16:32)
[2021-08-28] MEDS: HALOPERIDOL 5 MG TABLET PO PRN (16:32)
[2021-08-28 16:45] VITALS: BP 107/68
[2021-08-28] MEDS: ZOLPIDEM TARTRATE 10 MG TABLET PO PRN (21:03)
[2021-08-29] MEDS: MetFORMIN HCL 500 MG TABLET PO SCH ×2 (07:00→16:38)
[2021-08-29 08:20] VITALS: BP 137/64
[2021-08-29] MEDS: HALOPERIDOL 10 MG TABLET PO SCH ×2 (08:30→20:07)
[2021-08-29] MEDS: LITHIUM CARBONATE 600 MG CAPSULE PO SCH ×2 (08:30→16:38)
[2021-08-29] MEDS: BENZTROPINE MESYLATE 1 MG TABLET PO SCH ×2 (08:30→16:38)
[2021-08-29] MEDS: DIVALPROEX SODIUM 500 MG DR TABLET PO SCH ×2 (08:30→16:38)
[2021-08-29 16:33] VITALS: BP 107/68
[2021-08-29] MEDS: ZOLPIDEM TARTRATE 10 MG TABLET PO PRN (20:09)
[2021-08-30] MEDS: MetFORMIN HCL 500 MG TABLET PO SCH ×2 (06:38→16:02)
[2021-08-30 07:13] LABS: COVID AG,FIA SOURCE NASAL SWAB
[2021-08-30 08:00] VITALS: BP 110/68
[2021-08-30] MEDS: LITHIUM CARBONATE 600 MG CAPSULE PO SCH ×2 (09:27→16:02)
[2021-08-30] MEDS: BENZTROPINE MESYLATE 1 MG TABLET PO SCH ×2 (09:27→16:01)
[2021-08-30] MEDS: DIVALPROEX SODIUM 500 MG DR TABLET PO SCH ×2 (09:27→16:01)
[2021-08-30] MEDS: HALOPERIDOL 10 MG TABLET PO SCH ×2 (09:28→20:01)
[2021-08-30 16:00] VITALS: BP 101/69
[2021-08-31] MEDS: MetFORMIN HCL 500 MG TABLET PO SCH ×2 (06:50→16:30)
[2021-08-31 08:00] VITALS: BP 115/73
[2021-08-31] MEDS: DIVALPROEX SODIUM 500 MG DR TABLET PO SCH ×2 (10:09→16:30)
[2021-08-31] MEDS: BENZTROPINE MESYLATE 1 MG TABLET PO SCH ×2 (10:09→16:30)
[2021-08-31] MEDS: LITHIUM CARBONATE 600 MG CAPSULE PO SCH ×2 (10:09→16:30)
[2021-08-31] MEDS: HALOPERIDOL 10 MG TABLET PO SCH ×2 (10:10→20:18)
[2021-08-31 16:01] VITALS: BP 107/66
[2021-09-01] MEDS: MetFORMIN HCL 500 MG TABLET PO SCH ×2 (06:33→16:09)
[2021-09-01 08:38] VITALS: BP 102/67
[2021-09-01] MEDS: LITHIUM CARBONATE 600 MG CAPSULE PO SCH ×2 (08:39→16:00)
[2021-09-01] MEDS: BENZTROPINE MESYLATE 1 MG TABLET PO SCH ×2 (08:40→16:00)
[2021-09-01] MEDS: HALOPERIDOL 10 MG TABLET PO SCH ×2 (08:40→20:06)
[2021-09-01] MEDS: DIVALPROEX SODIUM 500 MG DR TABLET PO SCH ×2 (08:40→16:00)
[2021-09-01 16:50] VITALS: BP 122/87
[2021-09-01 18:25] VITALS: BP 125/80
[2021-09-01] MEDS: IBUPROFEN 400 MG TABLET PO PRN (18:25)
[2021-09-01] MEDS: BENZOCAINE/MENTHOL/ZINC CL 20% 11.9 GM GEL TP PRN (20:06)
[2021-09-02] MEDS: MetFORMIN HCL 500 MG TABLET PO SCH ×2 (07:01→17:30)
[2021-09-02] MEDS: DIVALPROEX SODIUM 500 MG DR TABLET PO SCH ×2 (07:46→17:00)
[2021-09-02] MEDS: LITHIUM CARBONATE 600 MG CAPSULE PO SCH ×2 (07:46→17:00)
[2021-09-02] MEDS: HALOPERIDOL 10 MG TABLET PO SCH ×2 (07:46→20:19)
[2021-09-02] MEDS: BENZTROPINE MESYLATE 1 MG TABLET PO SCH ×2 (07:46→17:00)
[2021-09-02 08:00] VITALS: BP 102/73
[2021-09-02 16:00] VITALS: BP 100/58
[2021-09-03] MEDS: MetFORMIN HCL 500 MG TABLET PO SCH ×2 (06:54→17:06)
[2021-09-03] MEDS: HALOPERIDOL 10 MG TABLET PO SCH ×2 (08:11→20:24)
[2021-09-03] MEDS: DIVALPROEX SODIUM 500 MG DR TABLET PO SCH ×2 (08:11→17:06)
[2021-09-03] MEDS: BENZTROPINE MESYLATE 1 MG TABLET PO SCH ×2 (08:11→17:05)
[2021-09-03] MEDS: LITHIUM CARBONATE 600 MG CAPSULE PO SCH ×2 (08:11→17:06)
[2021-09-03 08:20] VITALS: BP 104/69
[2021-09-03 12:15] LABS: COVID AG,FIA SOURCE NASAL SWAB
[2021-09-03 16:00] VITALS: BP 93/61
[2021-09-04] MEDS: MetFORMIN HCL 500 MG TABLET PO SCH ×2 (06:38→16:00)
[2021-09-04] MEDS: BENZTROPINE MESYLATE 1 MG TABLET PO SCH ×2 (08:29→16:00)
[2021-09-04] MEDS: DIVALPROEX SODIUM 500 MG DR TABLET PO SCH ×2 (08:29→16:00)
[2021-09-04] MEDS: LITHIUM CARBONATE 600 MG CAPSULE PO SCH ×2 (08:29→16:00)
[2021-09-04] MEDS: HALOPERIDOL 10 MG TABLET PO SCH ×2 (08:30→20:00)
[2021-09-04 08:41] VITALS: BP 109/69
[2021-09-04 16:07] VITALS: BP 120/74
[2021-09-05] MEDS: MetFORMIN HCL 500 MG TABLET PO SCH ×2 (06:49→16:37)
[2021-09-05] MEDS: LITHIUM CARBONATE 600 MG CAPSULE PO SCH ×2 (08:52→16:37)
[2021-09-05] MEDS: BENZTROPINE MESYLATE 1 MG TABLET PO SCH ×2 (08:52→16:36)
[2021-09-05] MEDS: HALOPERIDOL 10 MG TABLET PO SCH ×2 (08:52→20:12)
[2021-09-05] MEDS: DIVALPROEX SODIUM 500 MG DR TABLET PO SCH ×2 (08:52→16:36)
[2021-09-05 09:43] VITALS: BP 101/62
[2021-09-05 16:14] VITALS: BP 110/65
[2021-09-06] MEDS: MetFORMIN HCL 500 MG TABLET PO SCH ×2 (06:39→16:01)
[2021-09-06 08:00] VITALS: BP 98/69
[2021-09-06] MEDS: DIVALPROEX SODIUM 500 MG DR TABLET PO SCH ×2 (08:03→16:01)
[2021-09-06] MEDS: LITHIUM CARBONATE 600 MG CAPSULE PO SCH ×2 (08:03→16:01)
[2021-09-06] MEDS: BENZTROPINE MESYLATE 1 MG TABLET PO SCH ×2 (08:03→16:01)
[2021-09-06] MEDS: HALOPERIDOL 10 MG TABLET PO SCH ×2 (08:03→20:45)
[2021-09-06 16:08] VITALS: BP 110/72
[2021-09-07] MEDS: MetFORMIN HCL 500 MG TABLET PO SCH ×2 (06:32→16:22)
[2021-09-07] MEDS: HALOPERIDOL 10 MG TABLET PO SCH ×2 (07:35→20:35)
[2021-09-07] MEDS: DIVALPROEX SODIUM 500 MG DR TABLET PO SCH ×2 (07:35→16:23)
[2021-09-07] MEDS: BENZTROPINE MESYLATE 1 MG TABLET PO SCH ×2 (07:35→16:23)
[2021-09-07] MEDS: LITHIUM CARBONATE 600 MG CAPSULE PO SCH ×2 (07:35→16:23)
[2021-09-07 08:33] VITALS: BP 99/53
[2021-09-07 16:13] VITALS: BP 102/61
[2021-09-07] MEDS: IBUPROFEN 400 MG TABLET PO PRN (19:51)
[2021-09-07] MEDS: BENZOCAINE/MENTHOL/ZINC CL 20% 11.9 GM GEL TP PRN (19:57)
[2021-09-08] MEDS: MetFORMIN HCL 500 MG TABLET PO SCH (06:33)
[2021-09-08 08:44] VITALS: BP 115/58
[2021-09-08] MEDS: HALOPERIDOL 10 MG TABLET PO SCH (09:04)
[2021-09-08] MEDS: DIVALPROEX SODIUM 500 MG DR TABLET PO SCH ×2 (09:04→16:05)
[2021-09-08] MEDS: LITHIUM CARBONATE 600 MG CAPSULE PO SCH ×2 (09:04→16:05)
[2021-09-08] MEDS: BENZTROPINE MESYLATE 1 MG TABLET PO SCH ×2 (09:05→16:05)
[2021-09-08] MEDS ORDERED: METF-1211 PO (12:45)
[2021-09-08] MEDS ORDERED: LITH600C5 PO (12:45)
[2021-09-08] MEDS ORDERED: BENZ1TAB10 PO (12:45)
[2021-09-08] MEDS ORDERED: HALO10 PO (12:45)
[2021-09-08] MEDS ORDERED: DIVA-112 PO (12:45)
== END 2021-09-08 14:45 | disposition home or self-care (01) | DRG 885 ==
LOC: EMS 22:19 → 3EC 08-23 15:53
PROVIDERS: ADMIT Psychiatry & Neurology Child & Adolescent Psychiatry; ATTEND Psychiatry & Neurology Child & Adolescent Psychiatry
DX: F25.0 Schizoaffective disorder, bipolar type (principal); Z20.822 Contact with and (suspected) exposure to COVID-19; E78.5 Hyperlipidemia, unspecified; E78.00 Pure hypercholesterolemia, unspecified; F17.210 Nicotine dependence, cigarettes, uncomplicated; E11.9 Type 2 diabetes mellitus without complications; E83.51 Hypocalcemia; D64.9 Anemia, unspecified; F12.10 Cannabis abuse, uncomplicated; F15.10 Other stimulant abuse, uncomplicated; Z59.00 Homelessness unspecified; Z79.899 Other long term (current) drug therapy; Z88.0 Allergy status to penicillin
CPT/HCPCS: 80053; 80061; 80164; 80178; 81001; 85025; 99291; G0480; J1200; J1630; J2060

== ENCOUNTER 2021-11-15 22:20 | Emergency (ER) | payer OTHER ==
[~2021-11-15] VITALS: Ht 182.9 cm; Wt 72.7 kg
[~2021-11-15 22:20] MED LIST changes: -BENZ1TAB10 PO; +BENZ1TAB96 PO
[2021-11-15] MEDS ORDERED: HALOPERIDOL LACTATE 5 MG/ML VIAL IM ONE (23:15)
[2021-11-15] MEDS ORDERED: LORazepam 2 MG/ML VIAL IM ONE (23:15)
[2021-11-15] MEDS ORDERED: DiphenhydrAMINE HCL 50 MG/ML VIAL IM ONE (23:15)
[2021-11-16 00:54] LABS: BASOPHILS % (AUTO) 0.4 % (0.0-2.0); EOSINOPHILS % (AUTO) 0 % (1.0-6.0); HEMATOCRIT 38.9 % (41-53); HEMOGLOBIN 13.1 g/dL (13.5-17.5); LYMPHOCYTES # (AUTO) 0.9 K/uL (1.0-4.8); LYMPHOCYTES % (AUTO) 15.4 % (22.0-44.0); MEAN CORPUSCULAR HEMOGLOBIN 30.7 pg (26.0-34.0); MEAN CORPUSCULAR HGB CONC 33.6 G/dL (31.0-37.0); MEAN CORPUSCULAR VOLUME 91 fL (80-100); MONOCYTES # (AUTO) 0.5 K/uL (0.1-1.0); MONOCYTES % (AUTO) 8.3 % (2.0-9.0); NEUTROPHILS # (AUTO) 4.3 K/uL (1.8-7.7); NEUTROPHILS % (AUTO) 75.9 % (40.0-70.0); PLATELET COUNT (AUTO) 334 K/uL (150-450); RED BLOOD CELL COUNT(AUTO) 4.26 MIL/uL (4.50-5.90); RED CELL DISTRIBUTION WIDTH 17.4 % (11.5-14.5)
[2021-11-16 01:02] LABS: ANION GAP 8 mmol/L (8-16); CALCIUM, TOTAL 8.8 mg/dL (8.8-10.5); CARBON DIOXIDE 26 mmol/L (22-29); CHLORIDE 105 mmol/L (98-107); CREATININE 0.84 mg/dL (0.60-1.30); GLOMERULAR FILTR. RATE CALC > 60 mL/min (>60); GLUCOSE,RANDOM 92 mg/dL (70-110); POTASSIUM 4.2 mmol/L (3.5-5.1); SODIUM SERUM 139 mmol/L (136-145); UREA NITROGEN, BLOOD 24 mg/dL (7-18)
[2021-11-16 01:05] LABS: LITHIUM < 0.20 mmol/L (0.60-1.20)
[2021-11-16 01:08] LABS: ALANINE AMINOTRANSFERASE 19 U/L (12-78); ALBUMIN 3.7 g/dL (3.4-5.0); ALKALINE PHOSPHATASE 80 U/L (46-116); ASPARTATE AMINOTRANSFERASE 24 U/L (15-37); BILIRUBIN,TOTAL 0.6 mg/dL (0.1-1.0); TOTAL PROTEIN, SERUM 7.6 g/dL (6.4-8.2); VALPROIC ACID < 3 mcg/mL (50-100)
[2021-11-16 10:51] VITALS: BP 132/85
== END 2021-11-16 12:55 | disposition home or self-care (01) ==
LOC: EMS 22:22
DX: F20.9 Schizophrenia, unspecified (principal); F41.9 Anxiety disorder, unspecified; E11.9 Type 2 diabetes mellitus without complications; E78.00 Pure hypercholesterolemia, unspecified; E78.5 Hyperlipidemia, unspecified; F17.210 Nicotine dependence, cigarettes, uncomplicated; F12.90 Cannabis use, unspecified, uncomplicated; F15.90 Other stimulant use, unspecified, uncomplicated; Z88.0 Allergy status to penicillin
CPT/HCPCS: 36415; 80053; 80164; 80178; 85025; 96372; 99291; G0480; J1200; J1630; J2060; 99285

== ENCOUNTER 2021-11-21 00:19 | Inpatient (IN) | payer OTHER, MEDICAID ==
[~2021-11-21] VITALS: Ht 175.3 cm; Wt 75.5 kg
[2021-11-21] MEDS ORDERED: HALOPERIDOL LACTATE 5 MG/ML VIAL IM ONE (02:00)
[2021-11-21] MEDS ORDERED: DiphenhydrAMINE HCL 50 MG/ML VIAL IM ONE (02:00)
[2021-11-21] MEDS ORDERED: LORazepam 2 MG/ML VIAL IM ONE (02:00)
[2021-11-21 02:05] LABS: BASOPHILS % (AUTO) 0.5 % (0.0-2.0); EOSINOPHILS % (AUTO) 0.1 % (1.0-6.0); HEMATOCRIT 37.1 % (41-53); HEMOGLOBIN 12.4 g/dL (13.5-17.5); LYMPHOCYTES # (AUTO) 1.6 K/uL (1.0-4.8); LYMPHOCYTES % (AUTO) 20.7 % (22.0-44.0); MEAN CORPUSCULAR HEMOGLOBIN 31.3 pg (26.0-34.0); MEAN CORPUSCULAR HGB CONC 33.5 G/dL (31.0-37.0); MEAN CORPUSCULAR VOLUME 93 fL (80-100); MONOCYTES # (AUTO) 0.9 K/uL (0.1-1.0); MONOCYTES % (AUTO) 11.2 % (2.0-9.0); NEUTROPHILS # (AUTO) 5.4 K/uL (1.8-7.7); NEUTROPHILS % (AUTO) 67.5 % (40.0-70.0); PLATELET COUNT (AUTO) 350 K/uL (150-450); RED BLOOD CELL COUNT(AUTO) 3.97 MIL/uL (4.50-5.90); RED CELL DISTRIBUTION WIDTH 16.6 % (11.5-14.5)
[2021-11-21 02:14] LABS: ANION GAP 9 mmol/L (8-16); CALCIUM, TOTAL 9.1 mg/dL (8.8-10.5); CARBON DIOXIDE 29 mmol/L (22-29); CHLORIDE 99 mmol/L (98-107); CREATININE 1.61 mg/dL (0.60-1.30); GLOMERULAR FILTR. RATE CALC 46 mL/min (>60); GLUCOSE,RANDOM 74 mg/dL (70-110); POTASSIUM 4.3 mmol/L (3.5-5.1); SODIUM SERUM 137 mmol/L (136-145); UREA NITROGEN, BLOOD 24 mg/dL (7-18)
[2021-11-21 02:20] LABS: ALANINE AMINOTRANSFERASE 23 U/L (12-78); ALKALINE PHOSPHATASE 77 U/L (46-116); ASPARTATE AMINOTRANSFERASE 29 U/L (15-37); BILIRUBIN,TOTAL 0.6 mg/dL (0.1-1.0); TOTAL PROTEIN, SERUM 7.9 g/dL (6.4-8.2)
[2021-11-21 04:17] LABS: LITHIUM 0.95 mmol/L (0.60-1.20)
[2021-11-21 05:09] LABS: VALPROIC ACID < 3 mcg/mL (50-100)
[2021-11-21] MEDS ORDERED: ZOLPIDEM TARTRATE 10 MG TABLET PO PRN (06:15)
[2021-11-21] MEDS ORDERED: OLANZapine 5 MG RAPDIS TABLET PO PRN (06:15)
[2021-11-21] MEDS ORDERED: LORazepam 2 MG TABLET PO PRN (06:15)
[2021-11-21 06:29] LABS: COVID AG,FIA SOURCE NASAL SWAB
[2021-11-21 10:36] VITALS: BP 109/54
[2021-11-21 11:41] LABS: GLUCOMETER DEV NAME(LOC) BV3N.; GLUCOSE,POINT OF CARE 76 MG/DL (70-110)
[2021-11-21 15:43] VITALS: BP 109/54
[2021-11-21 17:15] VITALS: BP 118/76
[2021-11-21] MEDS ORDERED: GuaiFENesin/D-METHORPHAN [SUGAR-FREE] 200-20MG/10 ML SYRUP UDCUP PO PRN (17:45)
[2021-11-21] MEDS ORDERED: HALOPERIDOL 5 MG TABLET PO PRN (17:45)
[2021-11-21] MEDS ORDERED: LOPERAMIDE HCL 2 MG CAPSULE PO PRN (17:45)
[2021-11-21] MEDS ORDERED: HydrOXYzine PAMOATE 50 MG CAPSULE PO PRN (17:45)
[2021-11-21] MEDS ORDERED: TUBERCULIN, PURIFIED PROTEIN DERIVATIVE 5 TU/0.1 ML SYRINGE ID ONE (17:45)
[2021-11-21] MEDS ORDERED: ACETAMINOPHEN 325 MG TABLET PO PRN (17:45)
[2021-11-21] MEDS ORDERED: MAGNESIUM HYDROXIDE SUSPENSION 30 ML UDCUP PO PRN (17:45)
[2021-11-21] MEDS ORDERED: MAG HYDROX/AL HYDROX/SIMETH ES 30 ML SUSPENSION UDCUP PO PRN (17:45)
[2021-11-21] MEDS ORDERED: PROMETHAZINE HCL 25 MG TABLET PO PRN (17:45)
[2021-11-21] MEDS: MELATONIN 5 MG TABLET PO SCH (21:48)
[2021-11-21] MEDS: DIVALPROEX SODIUM 500 MG ER TABLET PO SCH (21:48)
[2021-11-22] MEDS ORDERED: PNEUMOCOCCAL VACCINE POLYVALENT 0.5 ML VIAL [PPSV23] IM. ONE (03:30)
[2021-11-22 05:56] VITALS: BP 108/71
[2021-11-22 07:53] LABS: CHOL/HDL RATIO 2.6 (4.2-7.3); FREE T4 (FREE THYROXINE) 1.37 ng/dL (0.76-1.46); THYROID STIMULATING HORMONE 0.1 uIU/mL (0.36-3.74)
[2021-11-22 08:01] LABS: HEMOGLOBIN A1C 5.5 % (3.8-5.6)
[2021-11-22 09:00] VITALS: BP 105/60
[2021-11-22] MEDS: HALOPERIDOL 5 MG TABLET PO SCH ×2 (09:23→17:02)
[2021-11-22] MEDS: BENZTROPINE MESYLATE 1 MG TABLET PO SCH ×2 (09:23→17:02)
[2021-11-22] MEDS: FOLIC ACID 1 MG TABLET PO SCH (09:24)
[2021-11-22] MEDS: MULTIVITAMINS WITH MINERALS, THERAPEUTIC TABLET PO SCH (09:24)
[2021-11-22] MEDS: OMEGA-3/DHA/EPA/FISH OIL 1,000 MG CAPSULE PO SCH (09:25)
[2021-11-22] MEDS: LITHIUM CARBONATE 600 MG CAPSULE PO SCH ×2 (09:25→17:02)
[2021-11-22] MEDS: NALTREXONE HCL 50 MG TABLET PO SCH (09:26)
[2021-11-22] MEDS: THIAMINE 100 MG TABLET PO SCH ×2 (09:26→17:02)
[2021-11-22 16:22] VITALS: BP 112/68
[2021-11-22] MEDS: MELATONIN 5 MG TABLET PO SCH (21:09)
[2021-11-22] MEDS: DIVALPROEX SODIUM 500 MG ER TABLET PO SCH (21:09)
[2021-11-23 08:19] VITALS: BP 108/64
[2021-11-23 08:42] LABS: LITHIUM 0.39 mmol/L (0.60-1.20)
[2021-11-23] MEDS: FOLIC ACID 1 MG TABLET PO SCH (09:26)
[2021-11-23] MEDS: BENZTROPINE MESYLATE 1 MG TABLET PO SCH ×2 (09:26→17:05)
[2021-11-23] MEDS: THIAMINE 100 MG TABLET PO SCH ×2 (09:26→17:04)
[2021-11-23] MEDS: HALOPERIDOL 5 MG TABLET PO SCH ×2 (09:26→17:05)
[2021-11-23] MEDS: OMEGA-3/DHA/EPA/FISH OIL 1,000 MG CAPSULE PO SCH (09:26)
[2021-11-23] MEDS: MULTIVITAMINS WITH MINERALS, THERAPEUTIC TABLET PO SCH (09:26)
[2021-11-23] MEDS: LITHIUM CARBONATE 600 MG CAPSULE PO SCH ×2 (09:26→17:04)
[2021-11-23] MEDS: NALTREXONE HCL 50 MG TABLET PO SCH (09:27)
[2021-11-23 16:16] VITALS: BP 108/64
[2021-11-23] MEDS: DIVALPROEX SODIUM 500 MG ER TABLET PO SCH (20:46)
[2021-11-23] MEDS: MELATONIN 5 MG TABLET PO SCH (20:46)
[2021-11-24 05:11] VITALS: BP 106/74
[2021-11-24] MEDS: BENZTROPINE MESYLATE 1 MG TABLET PO SCH (08:25)
[2021-11-24] MEDS: MULTIVITAMINS WITH MINERALS, THERAPEUTIC TABLET PO SCH (08:25)
[2021-11-24] MEDS: HALOPERIDOL 5 MG TABLET PO SCH ×2 (08:25→12:40)
[2021-11-24] MEDS: FOLIC ACID 1 MG TABLET PO SCH (08:25)
[2021-11-24] MEDS: LITHIUM CARBONATE 600 MG CAPSULE PO SCH (08:25)
[2021-11-24] MEDS: OMEGA-3/DHA/EPA/FISH OIL 1,000 MG CAPSULE PO SCH (08:25)
[2021-11-24] MEDS: THIAMINE 100 MG TABLET PO SCH (08:25)
[2021-11-24] MEDS: NALTREXONE HCL 50 MG TABLET PO SCH (08:25)
[2021-11-24 08:28] VITALS: BP 110/66
[2021-11-24] MEDS ORDERED: DIVA-80 PO (14:06)
[2021-11-24] MEDS ORDERED: NALT50TA PO (14:06)
[2021-11-24] MEDS ORDERED: MELA5TAB40 PO (14:06)
[2021-11-24] MEDS ORDERED: BENZ1TAB96 PO (14:06)
[2021-11-24] MEDS ORDERED: HALO5TAB2 PO (14:06)
[2021-11-24] MEDS ORDERED: LITH600C5 PO (14:06)
[2021-11-24] MEDS ORDERED: OMEG-108 PO (14:06)
[2021-11-24 16:27] VITALS: BP 110/72
== END 2021-11-24 17:42 | disposition home or self-care (01) | DRG 885 ==
LOC: EMS 00:21 → B3A 06:00
PROVIDERS: ADMIT Psychiatry & Neurology Psychiatry; ATTEND Psychiatry & Neurology Psychiatry
DX: F25.0 Schizoaffective disorder, bipolar type (principal); R45.851 Suicidal ideations; E11.9 Type 2 diabetes mellitus without complications; E78.00 Pure hypercholesterolemia, unspecified; E78.5 Hyperlipidemia, unspecified; Z20.822 Contact with and (suspected) exposure to COVID-19; F17.210 Nicotine dependence, cigarettes, uncomplicated; F60.0 Paranoid personality disorder; F15.10 Other stimulant abuse, uncomplicated; J44.9 Chronic obstructive pulmonary disease, unspecified; Z59.00 Homelessness unspecified; Z78.1 Physical restraint status; Z88.0 Allergy status to penicillin; Z91.19 Patient's noncompliance with other medical treatment and regimen
CPT/HCPCS: 80053; 80061; 80164; 80178; 82962; 83036; 84439; 84443; 85025; 86592; 99285; G0480; J1200; J1630; J2060; Q9967

== ENCOUNTER 2021-12-29 22:00 | Inpatient (IN) | payer OTHER, MEDICAID ==
[~2021-12-29] VITALS: Ht 182.9 cm; Wt 77.6 kg
[~2021-12-29 22:00] MED LIST changes: -DIVA-112 PO; +DIVA-80 PO; -HALO10 PO; +HALO5TAB2 PO; +MELA5TAB40 PO; -METF-1211 PO; +NALT50TA PO; +OMEG-108 PO
[2021-12-29] MEDS ORDERED: PERTUSS(ACELL),DIPH,TET VAC/PF 0.5 ML SYRINGE IM. ONE (22:30)
[2021-12-29] MEDS ORDERED: LORazepam 2 MG TABLET PO ONE (22:45)
[2021-12-29] MEDS ORDERED: HALOPERIDOL 5 MG TABLET PO ONE (22:45)
[2021-12-29 22:50] LABS: BASOPHILS % (AUTO) 0.5 % (0.0-2.0); EOSINOPHILS % (AUTO) 0 % (1.0-6.0); HEMATOCRIT 34.9 % (41-53); HEMOGLOBIN 11.5 g/dL (13.5-17.5); LYMPHOCYTES # (AUTO) 1.5 K/uL (1.0-4.8); LYMPHOCYTES % (AUTO) 32.5 % (22.0-44.0); MEAN CORPUSCULAR HEMOGLOBIN 31.1 pg (26.0-34.0); MEAN CORPUSCULAR HGB CONC 32.8 G/dL (31.0-37.0); MEAN CORPUSCULAR VOLUME 95 fL (80-100); MONOCYTES # (AUTO) 0.6 K/uL (0.1-1.0); MONOCYTES % (AUTO) 13.3 % (2.0-9.0); NEUTROPHILS # (AUTO) 2.5 K/uL (1.8-7.7); NEUTROPHILS % (AUTO) 53.7 % (40.0-70.0); PLATELET COUNT (AUTO) 310 K/uL (150-450); RED BLOOD CELL COUNT(AUTO) 3.69 MIL/uL (4.50-5.90); RED CELL DISTRIBUTION WIDTH 14.9 % (11.5-14.5)
[2021-12-29 22:59] LABS: ANION GAP 8 mmol/L (8-16); CALCIUM, TOTAL 8.5 mg/dL (8.8-10.5); CARBON DIOXIDE 27 mmol/L (22-29); CHLORIDE 107 mmol/L (98-107); CREATININE 0.83 mg/dL (0.60-1.30); GLOMERULAR FILTR. RATE CALC > 60 mL/min (>60); GLUCOSE,RANDOM 98 mg/dL (70-110); POTASSIUM 4.1 mmol/L (3.5-5.1); SODIUM SERUM 142 mmol/L (136-145); UREA NITROGEN, BLOOD 13 mg/dL (7-18)
[2021-12-29 23:02] LABS: AMPHET/METH SCREEN,URINE POSITIVE (NEGATIVE); BARBITURATE SCREEN, URINE NEGATIVE (NEGATIVE); BENZODIAZEPINES SCREEN,URINE NEGATIVE (NEGATIVE); CANNABINOID SCREEN,URINE POSITIVE (NEGATIVE); COCAINE SCREEN,URINE NEGATIVE (NEGATIVE); METHADONE SCREEN, URINE NEGATIVE (NEGATIVE); OPIATE SCREEN,URINE NEGATIVE (NEGATIVE); PHENCYCLIDINE SCREEN,URINE NEGATIVE (NEGATIVE)
[2021-12-29 23:05] LABS: ALANINE AMINOTRANSFERASE 21 U/L (12-78); ALKALINE PHOSPHATASE 60 U/L (46-116); ASPARTATE AMINOTRANSFERASE 21 U/L (15-37); BILIRUBIN,TOTAL 0.2 mg/dL (0.1-1.0); TOTAL PROTEIN, SERUM 6.9 g/dL (6.4-8.2)
[2021-12-29 23:20] LABS: VALPROIC ACID 4 mcg/mL (50-100)
[2021-12-29 23:30] LABS: COVID AG,FIA SOURCE NASOPHARYNGEAL
[2021-12-29 23:41] LABS: LITHIUM 1.28 mmol/L (0.60-1.20)
[2021-12-30] MEDS ORDERED: ZOLPIDEM TARTRATE 10 MG TABLET PO PRN (00:30)
[2021-12-30] MEDS ORDERED: HALOPERIDOL 5 MG TABLET PO PRN (00:30)
[2021-12-30] MEDS: BACITRACIN 28 GM OINTMENT TP SCH ×2 (11:36→17:20)
[2021-12-30] MEDS ORDERED: IBUPROFEN 400 MG TABLET PO PRN (12:15)
[2021-12-30] MEDS ORDERED: CloNIDine HCL 0.1 MG TABLET PO PRN (12:15)
[2021-12-30] MEDS ORDERED: MAG HYDROX/AL HYDROX/SIMETH ES 30 ML SUSPENSION UDCUP PO PRN (12:15)
[2021-12-30] MEDS ORDERED: PETROLATUM,WHITE 28 GM JELLY TP PRN (12:15)
[2021-12-30] MEDS ORDERED: ALBUTEROL SULFATE HFA 90 MCG/PUFF 8 GM INHALER IH PRN (12:15)
[2021-12-30] MEDS ORDERED: ONDANSETRON HCL 4 MG TABLET PO PRN (12:15)
[2021-12-30] MEDS ORDERED: LOPERAMIDE HCL 2 MG CAPSULE PO PRN (12:15)
[2021-12-30] MEDS ORDERED: ACETAMINOPHEN 325 MG TABLET PO PRN (12:15)
[2021-12-30] MEDS ORDERED: DOCUSATE SODIUM 100 MG CAPSULE PO PRN (12:15)
[2021-12-30] MEDS ORDERED: MAGNESIUM HYDROXIDE SUSPENSION 30 ML UDCUP PO PRN (12:15)
[2021-12-30] MEDS ORDERED: GuaiFENesin/D-METHORPHAN [SUGAR-FREE] 200-20MG/10 ML SYRUP UDCUP PO PRN (12:15)
[2021-12-30] MEDS ORDERED: NICOTINE 14 MG/24 HOUR PATCH TD PRN (12:15)
[2021-12-30] MEDS: HALOPERIDOL 5 MG TABLET PO SCH ×2 (12:34→17:20)
[2021-12-30 14:03] VITALS: BP 133/81
[2021-12-30 17:00] VITALS: BP 122/67
[2021-12-30] MEDS: BENZTROPINE MESYLATE 1 MG TABLET PO SCH (17:19)
[2021-12-30] MEDS: LITHIUM CARBONATE 600 MG CAPSULE PO SCH (17:20)
[2021-12-30] MEDS: DIVALPROEX SODIUM 500 MG ER TABLET PO SCH (20:32)
[2021-12-31 09:30] VITALS: BP 111/73
[2021-12-31] MEDS: LITHIUM CARBONATE 600 MG CAPSULE PO SCH ×2 (11:17→17:28)
[2021-12-31] MEDS: HALOPERIDOL 5 MG TABLET PO SCH ×3 (11:17→17:28)
[2021-12-31] MEDS: BACITRACIN 28 GM OINTMENT TP SCH ×2 (11:18→17:29)
[2021-12-31] MEDS: BENZTROPINE MESYLATE 1 MG TABLET PO SCH ×2 (11:18→17:28)
[2021-12-31 17:30] VITALS: BP 102/69
[2021-12-31] MEDS: DIVALPROEX SODIUM 500 MG ER TABLET PO SCH (20:15)
[2022-01-01 08:31] VITALS: BP 102/67
[2022-01-01] MEDS: BACITRACIN 28 GM OINTMENT TP SCH ×2 (08:50→16:32)
[2022-01-01] MEDS: HALOPERIDOL 5 MG TABLET PO SCH ×3 (08:50→16:32)
[2022-01-01] MEDS: LITHIUM CARBONATE 600 MG CAPSULE PO SCH ×2 (08:50→16:33)
[2022-01-01] MEDS: QUEtiapine FUMARATE 100 MG TABLET PO PRN (08:50)
[2022-01-01] MEDS: BENZTROPINE MESYLATE 1 MG TABLET PO SCH ×2 (08:50→16:32)
[2022-01-01] MEDS: LORazepam 2 MG TABLET PO PRN ×2 (08:50→19:15)
[2022-01-01 16:23] VITALS: BP 128/84
[2022-01-01] MEDS: DIVALPROEX SODIUM 500 MG ER TABLET PO SCH (20:13)
[2022-01-02] MEDS: LITHIUM CARBONATE 600 MG CAPSULE PO SCH ×2 (08:19→16:41)
[2022-01-02] MEDS: BENZTROPINE MESYLATE 1 MG TABLET PO SCH ×2 (08:20→16:41)
[2022-01-02] MEDS: LORazepam 2 MG TABLET PO PRN ×2 (08:20→19:55)
[2022-01-02] MEDS: HALOPERIDOL 5 MG TABLET PO SCH ×3 (08:20→16:41)
[2022-01-02] MEDS: QUEtiapine FUMARATE 100 MG TABLET PO PRN (08:20)
[2022-01-02] MEDS: BACITRACIN 28 GM OINTMENT TP SCH ×2 (08:20→16:40)
[2022-01-02 08:46] VITALS: BP 111/74
[2022-01-02 13:16] LABS: GLUCOMETER DEV NAME(LOC) 3E.C; GLUCOSE,POINT OF CARE 104 MG/DL (70-110)
[2022-01-02 16:11] VITALS: BP 97/69
[2022-01-02 16:36] LABS: GLUCOMETER DEV NAME(LOC) 3E.C; GLUCOSE,POINT OF CARE 98 MG/DL (70-110)
[2022-01-02] MEDS: DIVALPROEX SODIUM 500 MG ER TABLET PO SCH (20:32)
[2022-01-03 08:18] VITALS: BP 109/62
[2022-01-03] MEDS: BACITRACIN 28 GM OINTMENT TP SCH ×2 (10:00→16:15)
[2022-01-03] MEDS: BENZTROPINE MESYLATE 1 MG TABLET PO SCH ×2 (10:01→16:15)
[2022-01-03] MEDS: LITHIUM CARBONATE 600 MG CAPSULE PO SCH ×2 (10:01→16:15)
[2022-01-03] MEDS: HALOPERIDOL 5 MG TABLET PO SCH ×3 (10:02→16:15)
[2022-01-03 16:00] VITALS: BP 101/63
[2022-01-03 17:01] LABS: GLUCOMETER DEV NAME(LOC) 3E.C; GLUCOSE,POINT OF CARE 104 MG/DL (70-110)
[2022-01-03] MEDS: LORazepam 2 MG TABLET PO PRN (17:54)
[2022-01-03] MEDS: DIVALPROEX SODIUM 500 MG ER TABLET PO SCH (20:27)
[2022-01-04 06:21] LABS: GLUCOMETER DEV NAME(LOC) 3E.C; GLUCOSE,POINT OF CARE 117 MG/DL (70-110)
[2022-01-04 08:00] VITALS: BP 103/70
[2022-01-04] MEDS: LORazepam 2 MG TABLET PO PRN (08:43)
[2022-01-04] MEDS: LITHIUM CARBONATE 600 MG CAPSULE PO SCH ×2 (08:43→16:53)
[2022-01-04] MEDS: HALOPERIDOL 5 MG TABLET PO SCH ×3 (08:43→16:53)
[2022-01-04] MEDS: BENZTROPINE MESYLATE 1 MG TABLET PO SCH ×2 (08:44→16:53)
[2022-01-04] MEDS: BACITRACIN 28 GM OINTMENT TP SCH ×2 (12:25→16:53)
[2022-01-04 16:00] VITALS: BP 106/72
[2022-01-04 16:46] LABS: GLUCOMETER DEV NAME(LOC) 3E.C; GLUCOSE,POINT OF CARE 116 MG/DL (70-110)
[2022-01-04] MEDS: DIVALPROEX SODIUM 500 MG ER TABLET PO SCH (20:57)
[2022-01-05 06:16] LABS: GLUCOMETER DEV NAME(LOC) 3E.C; GLUCOSE,POINT OF CARE 96 MG/DL (70-110)
[2022-01-05 08:20] VITALS: BP 100/59
[2022-01-05] MEDS: BACITRACIN 28 GM OINTMENT TP SCH ×2 (10:20→16:34)
[2022-01-05] MEDS: BENZTROPINE MESYLATE 1 MG TABLET PO SCH ×2 (10:21→16:34)
[2022-01-05] MEDS: LITHIUM CARBONATE 600 MG CAPSULE PO SCH ×2 (10:21→16:34)
[2022-01-05] MEDS: HALOPERIDOL 5 MG TABLET PO SCH ×3 (10:21→16:35)
[2022-01-05 16:26] LABS: GLUCOMETER DEV NAME(LOC) 3E.C; GLUCOSE,POINT OF CARE 150 MG/DL (70-110)
[2022-01-05 16:38] VITALS: BP 123/67
[2022-01-05] MEDS: DIVALPROEX SODIUM 500 MG ER TABLET PO SCH (20:33)
[2022-01-06 06:29] LABS: COVID AG,FIA SOURCE NASAL SWAB
[2022-01-06 06:42] LABS: GLUCOMETER DEV NAME(LOC) 3E.C; GLUCOSE,POINT OF CARE 125 MG/DL (70-110)
[2022-01-06] MEDS: LITHIUM CARBONATE 600 MG CAPSULE PO SCH ×2 (08:02→16:56)
[2022-01-06] MEDS: LORazepam 2 MG TABLET PO PRN ×2 (08:02→18:06)
[2022-01-06] MEDS: HALOPERIDOL 5 MG TABLET PO SCH ×3 (08:02→16:56)
[2022-01-06] MEDS: BENZTROPINE MESYLATE 1 MG TABLET PO SCH ×2 (08:02→16:56)
[2022-01-06 08:33] VITALS: BP 136/77
[2022-01-06] MEDS: BACITRACIN 28 GM OINTMENT TP SCH ×2 (09:00→16:55)
[2022-01-06 15:51] LABS: GLUCOMETER DEV NAME(LOC) 3E.C; GLUCOSE,POINT OF CARE 121 MG/DL (70-110)
[2022-01-06 16:30] VITALS: BP 108/62
[2022-01-06 16:31] VITALS: BP 108/62
[2022-01-06] MEDS: DIVALPROEX SODIUM 500 MG ER TABLET PO SCH (20:40)
[2022-01-07 06:26] LABS: GLUCOMETER DEV NAME(LOC) 3E.C; GLUCOSE,POINT OF CARE 99 MG/DL (70-110)
[2022-01-07 08:16] VITALS: BP 112/81
[2022-01-07] MEDS: LITHIUM CARBONATE 600 MG CAPSULE PO SCH ×2 (09:05→16:37)
[2022-01-07] MEDS: MULTIVITAMINS WITH MINERALS, THERAPEUTIC TABLET PO SCH (09:05)
[2022-01-07] MEDS: HALOPERIDOL 5 MG TABLET PO SCH ×3 (09:05→16:37)
[2022-01-07] MEDS: BENZTROPINE MESYLATE 1 MG TABLET PO SCH ×2 (09:05→16:37)
[2022-01-07] MEDS: BACITRACIN 28 GM OINTMENT TP SCH ×2 (12:18→16:37)
[2022-01-07 16:40] VITALS: BP 107/69
[2022-01-07] MEDS: DIVALPROEX SODIUM 500 MG ER TABLET PO SCH (20:10)
[2022-01-08 03:06] LABS: GLUCOMETER DEV NAME(LOC) 3E.C; GLUCOSE,POINT OF CARE 128 MG/DL (70-110)
[2022-01-08 06:07] LABS: GLUCOMETER DEV NAME(LOC) 3E.C; GLUCOSE,POINT OF CARE 86 MG/DL (70-110)
[2022-01-08 08:29] VITALS: BP 126/75
[2022-01-08] MEDS: BACITRACIN 28 GM OINTMENT TP SCH ×2 (08:57→16:34)
[2022-01-08] MEDS: MULTIVITAMINS WITH MINERALS, THERAPEUTIC TABLET PO SCH (08:57)
[2022-01-08] MEDS: LITHIUM CARBONATE 600 MG CAPSULE PO SCH ×2 (08:57→16:34)
[2022-01-08] MEDS: BENZTROPINE MESYLATE 1 MG TABLET PO SCH ×2 (08:58→16:34)
[2022-01-08] MEDS: HALOPERIDOL 5 MG TABLET PO SCH ×3 (08:58→16:34)
[2022-01-08 15:51] LABS: GLUCOMETER DEV NAME(LOC) 3E.C; GLUCOSE,POINT OF CARE 121 MG/DL (70-110)
[2022-01-08 16:25] VITALS: BP 110/71
[2022-01-08] MEDS: LORazepam 2 MG TABLET PO PRN (18:00)
[2022-01-08] MEDS: DIVALPROEX SODIUM 500 MG ER TABLET PO SCH (20:46)
[2022-01-09] MEDS: LITHIUM CARBONATE 600 MG CAPSULE PO SCH ×2 (07:33→16:29)
[2022-01-09] MEDS: BENZTROPINE MESYLATE 1 MG TABLET PO SCH ×2 (07:33→16:29)
[2022-01-09] MEDS: MULTIVITAMINS WITH MINERALS, THERAPEUTIC TABLET PO SCH (07:33)
[2022-01-09] MEDS: HALOPERIDOL 5 MG TABLET PO SCH ×3 (07:34→16:29)
[2022-01-09] MEDS: BACITRACIN 28 GM OINTMENT TP SCH ×2 (07:35→16:28)
[2022-01-09 09:26] VITALS: BP 124/83
[2022-01-09 16:16] VITALS: BP 122/66
[2022-01-09 16:16] LABS: GLUCOMETER DEV NAME(LOC) 3E.C; GLUCOSE,POINT OF CARE 124 MG/DL (70-110)
[2022-01-09] MEDS: DIVALPROEX SODIUM 500 MG ER TABLET PO SCH (20:14)
[2022-01-10 06:41] LABS: GLUCOMETER DEV NAME(LOC) 3E.C; GLUCOSE,POINT OF CARE 112 MG/DL (70-110)
[2022-01-10] MEDS: BACITRACIN 28 GM OINTMENT TP SCH ×2 (08:14→16:08)
[2022-01-10] MEDS: MULTIVITAMINS WITH MINERALS, THERAPEUTIC TABLET PO SCH (08:15)
[2022-01-10] MEDS: BENZTROPINE MESYLATE 1 MG TABLET PO SCH ×2 (08:15→16:08)
[2022-01-10] MEDS: LITHIUM CARBONATE 600 MG CAPSULE PO SCH ×2 (08:15→16:08)
[2022-01-10] MEDS: HALOPERIDOL 5 MG TABLET PO SCH ×3 (08:15→16:08)
[2022-01-10 08:17] VITALS: BP 117/65
[2022-01-10 16:26] LABS: GLUCOMETER DEV NAME(LOC) 3E.C; GLUCOSE,POINT OF CARE 106 MG/DL (70-110)
[2022-01-10 16:51] VITALS: BP 101/60
[2022-01-10] MEDS: DIVALPROEX SODIUM 500 MG ER TABLET PO SCH (21:10)
[2022-01-10] MEDS: LORazepam 2 MG TABLET PO PRN (22:05)
[2022-01-11 06:16] LABS: GLUCOMETER DEV NAME(LOC) 3E.C; GLUCOSE,POINT OF CARE 87 MG/DL (70-110)
[2022-01-11] MEDS: HALOPERIDOL 5 MG TABLET PO SCH ×3 (08:15→16:27)
[2022-01-11] MEDS: MULTIVITAMINS WITH MINERALS, THERAPEUTIC TABLET PO SCH (08:15)
[2022-01-11] MEDS: LORazepam 2 MG TABLET PO PRN (08:15)
[2022-01-11] MEDS: BENZTROPINE MESYLATE 1 MG TABLET PO SCH ×2 (08:15→16:27)
[2022-01-11] MEDS: LITHIUM CARBONATE 600 MG CAPSULE PO SCH ×2 (08:15→16:27)
[2022-01-11 08:17] VITALS: BP 118/72
[2022-01-11] MEDS: BACITRACIN 28 GM OINTMENT TP SCH ×2 (10:42→16:30)
[2022-01-11 16:48] VITALS: BP 121/89
[2022-01-11 17:12] LABS: GLUCOMETER DEV NAME(LOC) 3E.C; GLUCOSE,POINT OF CARE 107 MG/DL (70-110)
[2022-01-11] MEDS: DIVALPROEX SODIUM 500 MG ER TABLET PO SCH (21:16)
[2022-01-12 06:56] LABS: GLUCOMETER DEV NAME(LOC) 3E.C; GLUCOSE,POINT OF CARE 91 MG/DL (70-110)
[2022-01-12 08:29] VITALS: BP 109/72
[2022-01-12] MEDS: BACITRACIN 28 GM OINTMENT TP SCH ×2 (09:25→16:29)
[2022-01-12] MEDS: MULTIVITAMINS WITH MINERALS, THERAPEUTIC TABLET PO SCH (09:25)
[2022-01-12] MEDS: BENZTROPINE MESYLATE 1 MG TABLET PO SCH ×2 (09:25→16:29)
[2022-01-12] MEDS: LITHIUM CARBONATE 600 MG CAPSULE PO SCH ×2 (09:26→16:29)
[2022-01-12] MEDS: HALOPERIDOL 5 MG TABLET PO SCH ×3 (09:26→16:29)
[2022-01-12] MEDS ORDERED: LITHIUM CARBONATE 300 MG CAPSULE ONE (13:05)
[2022-01-12] MEDS: LORazepam 2 MG TABLET PO PRN (13:11)
[2022-01-12 16:34] VITALS: BP 101/72
[2022-01-12 16:46] LABS: GLUCOMETER DEV NAME(LOC) 3E.C; GLUCOSE,POINT OF CARE 97 MG/DL (70-110)
[2022-01-12] MEDS: DIVALPROEX SODIUM 500 MG ER TABLET PO SCH (20:57)
[2022-01-13 06:11] LABS: GLUCOMETER DEV NAME(LOC) 3E.C; GLUCOSE,POINT OF CARE 92 MG/DL (70-110)
[2022-01-13 08:00] VITALS: BP 96/60
[2022-01-13] MEDS: BACITRACIN 28 GM OINTMENT TP SCH ×2 (10:35→17:01)
[2022-01-13] MEDS: MULTIVITAMINS WITH MINERALS, THERAPEUTIC TABLET PO SCH (10:36)
[2022-01-13] MEDS: BENZTROPINE MESYLATE 1 MG TABLET PO SCH ×2 (10:36→17:01)
[2022-01-13] MEDS: LITHIUM CARBONATE 600 MG CAPSULE PO SCH ×2 (10:36→17:01)
[2022-01-13] MEDS: HALOPERIDOL 5 MG TABLET PO SCH ×3 (10:36→17:01)
[2022-01-13] MEDS: LORazepam 2 MG TABLET PO PRN (13:03)
[2022-01-13 16:11] LABS: GLUCOMETER DEV NAME(LOC) 3E.C; GLUCOSE,POINT OF CARE 113 MG/DL (70-110)
[2022-01-13 17:00] VITALS: BP 105/60
[2022-01-13] MEDS: DIVALPROEX SODIUM 500 MG ER TABLET PO SCH (20:25)
[2022-01-14 05:30] LABS: COVID AG,FIA SOURCE NASAL SWAB
[2022-01-14 06:01] LABS: GLUCOMETER DEV NAME(LOC) 3E.C; GLUCOSE,POINT OF CARE 97 MG/DL (70-110)
[2022-01-14 08:00] VITALS: BP 99/66
[2022-01-14] MEDS: MULTIVITAMINS WITH MINERALS, THERAPEUTIC TABLET PO SCH (08:08)
[2022-01-14] MEDS: BENZTROPINE MESYLATE 1 MG TABLET PO SCH ×2 (08:08→16:09)
[2022-01-14] MEDS: LORazepam 2 MG TABLET PO PRN (08:08)
[2022-01-14] MEDS: BACITRACIN 28 GM OINTMENT TP SCH ×2 (08:08→16:09)
[2022-01-14] MEDS: HALOPERIDOL 5 MG TABLET PO SCH ×3 (08:15→16:09)
[2022-01-14] MEDS: LITHIUM CARBONATE 600 MG CAPSULE PO SCH ×2 (08:15→16:09)
[2022-01-14 16:06] LABS: GLUCOMETER DEV NAME(LOC) 3E.C; GLUCOSE,POINT OF CARE 115 MG/DL (70-110)
[2022-01-14 16:58] VITALS: BP 114/68
[2022-01-14] MEDS: DIVALPROEX SODIUM 500 MG ER TABLET PO SCH (21:12)
[2022-01-15 06:12] LABS: GLUCOMETER DEV NAME(LOC) 3E.C; GLUCOSE,POINT OF CARE 105 MG/DL (70-110)
[2022-01-15] MEDS: LITHIUM CARBONATE 600 MG CAPSULE PO SCH ×2 (08:27→16:04)
[2022-01-15] MEDS: BENZTROPINE MESYLATE 1 MG TABLET PO SCH ×2 (08:27→16:04)
[2022-01-15] MEDS: HALOPERIDOL 5 MG TABLET PO SCH ×3 (08:27→16:04)
[2022-01-15] MEDS: MULTIVITAMINS WITH MINERALS, THERAPEUTIC TABLET PO SCH (08:27)
[2022-01-15] MEDS: LORazepam 2 MG TABLET PO PRN ×3 (08:28→20:52)
[2022-01-15 08:47] VITALS: BP 108/80
[2022-01-15] MEDS: BACITRACIN 28 GM OINTMENT TP SCH ×2 (09:00→16:39)
[2022-01-15 16:41] LABS: GLUCOMETER DEV NAME(LOC) 3E.C; GLUCOSE,POINT OF CARE 101 MG/DL (70-110)
[2022-01-15 16:43] VITALS: BP 99/79
[2022-01-15] MEDS: DIVALPROEX SODIUM 500 MG ER TABLET PO SCH (20:06)
[2022-01-15] MEDS: QUEtiapine FUMARATE 100 MG TABLET PO PRN (20:51)
[2022-01-16 05:41] LABS: GLUCOMETER DEV NAME(LOC) 3E.C; GLUCOSE,POINT OF CARE 83 MG/DL (70-110)
[2022-01-16] MEDS: BACITRACIN 28 GM OINTMENT TP SCH ×2 (08:12→16:44)
[2022-01-16] MEDS: MULTIVITAMINS WITH MINERALS, THERAPEUTIC TABLET PO SCH (08:14)
[2022-01-16] MEDS: BENZTROPINE MESYLATE 1 MG TABLET PO SCH ×2 (08:14→16:44)
[2022-01-16] MEDS: LORazepam 2 MG TABLET PO PRN ×2 (08:14→18:16)
[2022-01-16] MEDS: LITHIUM CARBONATE 600 MG CAPSULE PO SCH ×2 (08:15→16:44)
[2022-01-16] MEDS: HALOPERIDOL 5 MG TABLET PO SCH ×3 (08:15→16:44)
[2022-01-16 08:16] VITALS: BP 116/66
[2022-01-16 15:56] LABS: GLUCOMETER DEV NAME(LOC) 3E.C; GLUCOSE,POINT OF CARE 189 MG/DL (70-110)
[2022-01-16 16:43] VITALS: BP 114/65
[2022-01-16] MEDS: DIVALPROEX SODIUM 500 MG ER TABLET PO SCH (20:06)
[2022-01-17 06:11] LABS: GLUCOMETER DEV NAME(LOC) 3E.C; GLUCOSE,POINT OF CARE 78 MG/DL (70-110)
[2022-01-17 08:23] VITALS: BP 100/67
[2022-01-17] MEDS: BACITRACIN 28 GM OINTMENT TP SCH ×2 (08:27→16:42)
[2022-01-17] MEDS: HALOPERIDOL 5 MG TABLET PO SCH ×3 (08:29→16:42)
[2022-01-17] MEDS: BENZTROPINE MESYLATE 1 MG TABLET PO SCH ×2 (08:29→16:42)
[2022-01-17] MEDS: LORazepam 2 MG TABLET PO PRN ×2 (08:29→16:43)
[2022-01-17] MEDS: LITHIUM CARBONATE 600 MG CAPSULE PO SCH ×2 (08:29→16:42)
[2022-01-17] MEDS: MULTIVITAMINS WITH MINERALS, THERAPEUTIC TABLET PO SCH (08:29)
[2022-01-17 15:56] LABS: GLUCOMETER DEV NAME(LOC) 3E.C; GLUCOSE,POINT OF CARE 107 MG/DL (70-110)
[2022-01-17 16:44] VITALS: BP 119/66
[2022-01-17] MEDS: DIVALPROEX SODIUM 500 MG ER TABLET PO SCH (20:50)
[2022-01-18 05:31] LABS: GLUCOMETER DEV NAME(LOC) 3E.C; GLUCOSE,POINT OF CARE 89 MG/DL (70-110)
[2022-01-18] MEDS: BACITRACIN 28 GM OINTMENT TP SCH ×2 (09:00→16:23)
[2022-01-18] MEDS: BENZTROPINE MESYLATE 1 MG TABLET PO SCH ×2 (09:26→16:22)
[2022-01-18] MEDS: MULTIVITAMINS WITH MINERALS, THERAPEUTIC TABLET PO SCH (09:26)
[2022-01-18] MEDS: LITHIUM CARBONATE 600 MG CAPSULE PO SCH ×2 (09:26→16:23)
[2022-01-18] MEDS: HALOPERIDOL 5 MG TABLET PO SCH ×3 (09:27→16:23)
[2022-01-18] MEDS: LORazepam 2 MG TABLET PO PRN (10:58)
[2022-01-18 13:18] VITALS: BP 105/71
[2022-01-18 16:16] LABS: GLUCOMETER DEV NAME(LOC) 3E.C; GLUCOSE,POINT OF CARE 130 MG/DL (70-110)
[2022-01-18 16:28] VITALS: BP 120/66
[2022-01-18] MEDS: DIVALPROEX SODIUM 500 MG ER TABLET PO SCH (20:08)
[2022-01-19 05:56] LABS: GLUCOMETER DEV NAME(LOC) 3E.C; GLUCOSE,POINT OF CARE 78 MG/DL (70-110)
[2022-01-19] MEDS: LITHIUM CARBONATE 600 MG CAPSULE PO SCH ×2 (07:42→16:24)
[2022-01-19] MEDS: BENZTROPINE MESYLATE 1 MG TABLET PO SCH ×2 (07:42→16:24)
[2022-01-19] MEDS: LORazepam 2 MG TABLET PO PRN ×2 (07:42→16:24)
[2022-01-19] MEDS: HALOPERIDOL 5 MG TABLET PO SCH ×3 (07:42→16:24)
[2022-01-19] MEDS: MULTIVITAMINS WITH MINERALS, THERAPEUTIC TABLET PO SCH (07:42)
[2022-01-19] MEDS: BACITRACIN 28 GM OINTMENT TP SCH ×2 (07:44→16:24)
[2022-01-19 08:29] VITALS: BP 103/63
[2022-01-19 15:46] LABS: GLUCOMETER DEV NAME(LOC) 3E.C; GLUCOSE,POINT OF CARE 132 MG/DL (70-110)
[2022-01-19 16:28] VITALS: BP 118/65
[2022-01-19] MEDS: DIVALPROEX SODIUM 500 MG ER TABLET PO SCH (20:09)
[2022-01-20 06:27] LABS: GLUCOMETER DEV NAME(LOC) 3E.C; GLUCOSE,POINT OF CARE 90 MG/DL (70-110)
[2022-01-20 08:38] VITALS: BP 90/62
[2022-01-20] MEDS: HALOPERIDOL 5 MG TABLET PO SCH ×3 (08:44→16:40)
[2022-01-20] MEDS: LORazepam 2 MG TABLET PO PRN ×3 (08:45→19:13)
[2022-01-20] MEDS: BENZTROPINE MESYLATE 1 MG TABLET PO SCH ×2 (08:45→16:41)
[2022-01-20] MEDS: MULTIVITAMINS WITH MINERALS, THERAPEUTIC TABLET PO SCH (08:45)
[2022-01-20] MEDS: LITHIUM CARBONATE 600 MG CAPSULE PO SCH ×2 (08:47→16:40)
[2022-01-20] MEDS: BACITRACIN 28 GM OINTMENT TP SCH ×2 (10:03→16:40)
[2022-01-20 16:21] LABS: GLUCOMETER DEV NAME(LOC) 3E.C; GLUCOSE,POINT OF CARE 169 MG/DL (70-110)
[2022-01-20 16:35] VITALS: BP 109/78
[2022-01-20] MEDS: DIVALPROEX SODIUM 500 MG ER TABLET PO SCH (20:26)
[2022-01-21 06:22] LABS: GLUCOMETER DEV NAME(LOC) 3E.C; GLUCOSE,POINT OF CARE 95 MG/DL (70-110)
[2022-01-21] MEDS: MULTIVITAMINS WITH MINERALS, THERAPEUTIC TABLET PO SCH (08:20)
[2022-01-21] MEDS: HALOPERIDOL 5 MG TABLET PO SCH ×3 (08:20→16:41)
[2022-01-21] MEDS: BENZTROPINE MESYLATE 1 MG TABLET PO SCH ×2 (08:20→16:41)
[2022-01-21] MEDS: BACITRACIN 28 GM OINTMENT TP SCH ×2 (08:20→17:00)
[2022-01-21] MEDS: LITHIUM CARBONATE 600 MG CAPSULE PO SCH ×2 (08:20→16:40)
[2022-01-21 08:26] VITALS: BP 144/70
[2022-01-21 08:46] LABS: COVID AG,FIA SOURCE NASAL SWAB
[2022-01-21 15:41] LABS: GLUCOMETER DEV NAME(LOC) 3E.C; GLUCOSE,POINT OF CARE 113 MG/DL (70-110)
[2022-01-21 16:20] VITALS: BP 105/72
[2022-01-21] MEDS: LORazepam 2 MG TABLET PO PRN (16:41)
[2022-01-21] MEDS: DIVALPROEX SODIUM 500 MG ER TABLET PO SCH (20:51)
[2022-01-22 06:11] LABS: GLUCOMETER DEV NAME(LOC) 3E.C; GLUCOSE,POINT OF CARE 86 MG/DL (70-110)
[2022-01-22] MEDS: HALOPERIDOL 5 MG TABLET PO SCH ×3 (08:14→16:38)
[2022-01-22] MEDS: BACITRACIN 28 GM OINTMENT TP SCH ×2 (08:14→16:38)
[2022-01-22] MEDS: LITHIUM CARBONATE 600 MG CAPSULE PO SCH ×2 (08:14→16:38)
[2022-01-22] MEDS: BENZTROPINE MESYLATE 1 MG TABLET PO SCH ×2 (08:14→16:38)
[2022-01-22] MEDS: MULTIVITAMINS WITH MINERALS, THERAPEUTIC TABLET PO SCH (08:14)
[2022-01-22 08:21] VITALS: BP 106/73
[2022-01-22] MEDS: LORazepam 2 MG TABLET PO PRN ×2 (12:40→19:46)
[2022-01-22 16:23] VITALS: BP 108/69
[2022-01-22 16:42] LABS: GLUCOMETER DEV NAME(LOC) 3E.C; GLUCOSE,POINT OF CARE 122 MG/DL (70-110)
[2022-01-22] MEDS: DIVALPROEX SODIUM 500 MG ER TABLET PO SCH (20:05)
[2022-01-23 05:51] LABS: GLUCOMETER DEV NAME(LOC) 3E.C; GLUCOSE,POINT OF CARE 86 MG/DL (70-110)
[2022-01-23 08:00] VITALS: BP 130/77
[2022-01-23] MEDS: MULTIVITAMINS WITH MINERALS, THERAPEUTIC TABLET PO SCH (08:13)
[2022-01-23] MEDS: BENZTROPINE MESYLATE 1 MG TABLET PO SCH ×2 (08:13→15:57)
[2022-01-23] MEDS: HALOPERIDOL 5 MG TABLET PO SCH ×3 (08:13→15:57)
[2022-01-23] MEDS: LITHIUM CARBONATE 600 MG CAPSULE PO SCH ×2 (08:13→15:57)
[2022-01-23] MEDS: LORazepam 2 MG TABLET PO PRN ×2 (08:13→13:08)
[2022-01-23] MEDS: BACITRACIN 28 GM OINTMENT TP SCH ×2 (08:14→17:00)
[2022-01-23 16:11] LABS: GLUCOMETER DEV NAME(LOC) 3E.C; GLUCOSE,POINT OF CARE 102 MG/DL (70-110)
[2022-01-23 16:52] VITALS: BP 109/62
[2022-01-23] MEDS: DIVALPROEX SODIUM 500 MG ER TABLET PO SCH (20:05)
[2022-01-24 06:06] LABS: GLUCOMETER DEV NAME(LOC) 3E.C; GLUCOSE,POINT OF CARE 79 MG/DL (70-110)
[2022-01-24 08:27] VITALS: BP 104/65
[2022-01-24] MEDS ORDERED: LITH600C5 PO (08:38)
[2022-01-24] MEDS ORDERED: HALO5TAB2 PO (08:38)
[2022-01-24] MEDS ORDERED: BENZ1TAB96 PO (08:38)
[2022-01-24] MEDS ORDERED: DIVA-80 PO (08:38)
[2022-01-24] MEDS: BACITRACIN 28 GM OINTMENT TP SCH (09:00)
[2022-01-24] MEDS: LITHIUM CARBONATE 600 MG CAPSULE PO SCH (09:17)
[2022-01-24] MEDS: LORazepam 2 MG TABLET PO PRN (09:17)
[2022-01-24] MEDS: MULTIVITAMINS WITH MINERALS, THERAPEUTIC TABLET PO SCH (09:17)
[2022-01-24] MEDS: BENZTROPINE MESYLATE 1 MG TABLET PO SCH (09:17)
[2022-01-24] MEDS: HALOPERIDOL 5 MG TABLET PO SCH ×2 (09:18→12:06)
== END 2022-01-24 12:05 | disposition home or self-care (01) | DRG 885 ==
LOC: EMS 22:02 → 3EC 12-30 01:00
PROVIDERS: ADMIT Psychiatry & Neurology Psychiatry; ATTEND Psychiatry & Neurology Psychiatry
DX: F25.0 Schizoaffective disorder, bipolar type (principal); E03.9 Hypothyroidism, unspecified; E11.9 Type 2 diabetes mellitus without complications; E78.00 Pure hypercholesterolemia, unspecified; E78.5 Hyperlipidemia, unspecified; F12.10 Cannabis abuse, uncomplicated; F15.10 Other stimulant abuse, uncomplicated; I10 Essential (primary) hypertension; K59.00 Constipation, unspecified; D64.9 Anemia, unspecified; Z20.822 Contact with and (suspected) exposure to COVID-19; S61.512A Laceration without foreign body of left wrist, initial encounter; X78.9XXA Intentional self-harm by unspecified sharp object, initial encounter; Y93.89 Activity, other specified; Z79.899 Other long term (current) drug therapy; Y92.89 Other specified places as the place of occurrence of the external cause; Y99.8 Other external cause status; Z59.00 Homelessness unspecified; Z87.891 Personal history of nicotine dependence; F41.9 Anxiety disorder, unspecified; Z88.0 Allergy status to penicillin
CPT/HCPCS: 12001; 80053; 80164; 80178; 82962; 85025; 87081; 90715; 99285; G0480

== ENCOUNTER 2022-02-17 07:56 | Inpatient (IN) | payer OTHER, MEDICAID ==
[~2022-02-17] VITALS: Ht 182.9 cm; Wt 77.1 kg
[~2022-02-17 07:56] MED LIST changes: -MELA5TAB40 PO; -NALT50TA PO; -OMEG-108 PO
[2022-02-17] MEDS ORDERED: HALOPERIDOL LACTATE 5 MG/ML VIAL IM ONE (08:15)
[2022-02-17] MEDS ORDERED: DiphenhydrAMINE HCL 50 MG/ML VIAL IM ONE (08:15)
[2022-02-17 08:25] LABS: COVID AG,FIA SOURCE NASOPHARYNGEAL
[2022-02-17 09:42] LABS: BASOPHILS % (AUTO) 0.1 % (0.0-2.0); EOSINOPHILS % (AUTO) 0 % (1.0-6.0); HEMATOCRIT 37.3 % (41-53); HEMOGLOBIN 12.5 g/dL (13.5-17.5); LYMPHOCYTES # (AUTO) 0.6 K/uL (1.0-4.8); LYMPHOCYTES % (AUTO) 10.5 % (22.0-44.0); MEAN CORPUSCULAR HEMOGLOBIN 31.4 pg (26.0-34.0); MEAN CORPUSCULAR HGB CONC 33.6 G/dL (31.0-37.0); MEAN CORPUSCULAR VOLUME 93 fL (80-100); MONOCYTES # (AUTO) 0.5 K/uL (0.1-1.0); MONOCYTES % (AUTO) 7.9 % (2.0-9.0); NEUTROPHILS % (AUTO) 81.5 % (40.0-70.0); PLATELET COUNT (AUTO) 329 K/uL (150-450); RED BLOOD CELL COUNT(AUTO) 3.99 MIL/uL (4.50-5.90); RED CELL DISTRIBUTION WIDTH 16.2 % (11.5-14.5)
[2022-02-17 09:47] LABS: ANION GAP 11 mmol/L (8-16); CALCIUM, TOTAL 9.2 mg/dL (8.8-10.5); CARBON DIOXIDE 23 mmol/L (22-29); CHLORIDE 104 mmol/L (98-107); CREATININE 0.96 mg/dL (0.60-1.30); GLUCOSE,RANDOM 85 mg/dL (70-110); POTASSIUM 3.6 mmol/L (3.5-5.1); SODIUM SERUM 138 mmol/L (136-145); UREA NITROGEN, BLOOD 26 mg/dL (7-18)
[2022-02-17 09:48] LABS: GLOMERULAR FILTR. RATE CALC > 60 mL/min (>60)
[2022-02-17 09:55] LABS: ALANINE AMINOTRANSFERASE 24 U/L (12-78); ALBUMIN 3.8 g/dL (3.4-5.0); ALKALINE PHOSPHATASE 58 U/L (46-116); ASPARTATE AMINOTRANSFERASE 29 U/L (15-37); BILIRUBIN,TOTAL 0.8 mg/dL (0.1-1.0); TOTAL PROTEIN, SERUM 7.6 g/dL (6.4-8.2)
[2022-02-17 09:56] LABS: VALPROIC ACID < 3 mcg/mL (50-100)
[2022-02-17 10:22] LABS: LITHIUM < 0.20 mmol/L (0.60-1.20)
[2022-02-17] MEDS ORDERED: HALOPERIDOL 5 MG TABLET PO PRN (11:00)
[2022-02-17] MEDS ORDERED: ZOLPIDEM TARTRATE 10 MG TABLET PO PRN (11:00)
[2022-02-18 18:29] LABS: AMPHET/METH SCREEN,URINE POSITIVE (NEGATIVE); BARBITURATE SCREEN, URINE NEGATIVE (NEGATIVE); BENZODIAZEPINES SCREEN,URINE NEGATIVE (NEGATIVE); CANNABINOID SCREEN,URINE POSITIVE (NEGATIVE); COCAINE SCREEN,URINE NEGATIVE (NEGATIVE); METHADONE SCREEN, URINE NEGATIVE (NEGATIVE); OPIATE SCREEN,URINE NEGATIVE (NEGATIVE)
[2022-02-18 18:30] LABS: PHENCYCLIDINE SCREEN,URINE NEGATIVE (NEGATIVE)
[2022-02-19] MEDS ORDERED: OMEPRAZOLE 20 MG CAPSULE PO PRN (07:45)
[2022-02-19] MEDS ORDERED: ALBUTEROL SULFATE HFA 90 MCG/PUFF 8 GM INHALER IH PRN (07:45)
[2022-02-19] MEDS ORDERED: IBUPROFEN 600 MG TABLET PO PRN (07:45)
[2022-02-19] MEDS ORDERED: PETROLATUM,WHITE 28 GM JELLY TP PRN (07:45)
[2022-02-19] MEDS ORDERED: DOCUSATE SODIUM 100 MG CAPSULE PO PRN (07:45)
[2022-02-19] MEDS ORDERED: BENZOCAINE/MENTHOL LOZENGE PO PRN (07:45)
[2022-02-19] MEDS ORDERED: MAGNESIUM HYDROXIDE SUSPENSION 30 ML UDCUP PO PRN (07:45)
[2022-02-19] MEDS ORDERED: BACITRACIN 28 GM OINTMENT TP PRN (07:45)
[2022-02-19] MEDS ORDERED: CloNIDine HCL 0.1 MG TABLET PO PRN (07:45)
[2022-02-19] MEDS ORDERED: ONDANSETRON HCL 4 MG TABLET PO PRN (07:45)
[2022-02-19] MEDS ORDERED: ACETAMINOPHEN 325 MG TABLET PO PRN (07:45)
[2022-02-19] MEDS ORDERED: LOPERAMIDE HCL 2 MG CAPSULE PO PRN (07:45)
[2022-02-19] MEDS ORDERED: MAG HYDROX/AL HYDROX/SIMETH ES 30 ML SUSPENSION UDCUP PO PRN (07:45)
[2022-02-19 09:50] VITALS: BP 101/67
[2022-02-19] MEDS: TERBINAFINE HCL 1% 30 GM CREAM TP SCH (13:45)
[2022-02-19] MEDS: LITHIUM CARBONATE 300 MG CAPSULE PO SCH (16:17)
[2022-02-19] MEDS: DIVALPROEX SODIUM 500 MG DR TABLET PO SCH (16:17)
[2022-02-19] MEDS: RisperiDONE 1 MG TABLET PO SCH (16:17)
[2022-02-19] MEDS: LORazepam 2 MG TABLET PO PRN (16:17)
[2022-02-20 07:34] LABS: HEMOGLOBIN A1C 5.3 % (3.8-5.6)
[2022-02-20 07:44] LABS: CHOL/HDL RATIO 3.3 (4.2-7.3); THYROID STIMULATING HORMONE 0.02 uIU/mL (0.36-3.74)
[2022-02-20 08:19] VITALS: BP 120/72
[2022-02-20] MEDS: MAGNESIUM SULFATE 454 GM BAG TP SCH (08:20)
[2022-02-20] MEDS: TERBINAFINE HCL 1% 30 GM CREAM TP SCH (08:21)
[2022-02-20] MEDS: RisperiDONE 1 MG TABLET PO SCH ×2 (08:22→16:53)
[2022-02-20] MEDS: LORazepam 2 MG TABLET PO PRN ×2 (08:22→16:53)
[2022-02-20] MEDS: DIVALPROEX SODIUM 500 MG DR TABLET PO SCH ×2 (08:22→16:53)
[2022-02-20] MEDS: LITHIUM CARBONATE 300 MG CAPSULE PO SCH ×2 (08:22→16:53)
[2022-02-20 16:02] VITALS: BP 109/62
[2022-02-21 08:28] VITALS: BP 116/81
[2022-02-21] MEDS: MAGNESIUM SULFATE 454 GM BAG TP SCH (08:49)
[2022-02-21] MEDS: LORazepam 2 MG TABLET PO PRN (08:50)
[2022-02-21] MEDS: RisperiDONE 1 MG TABLET PO SCH ×2 (08:50→16:13)
[2022-02-21] MEDS: TERBINAFINE HCL 1% 30 GM CREAM TP SCH (08:50)
[2022-02-21] MEDS: DIVALPROEX SODIUM 500 MG DR TABLET PO SCH ×2 (08:50→16:13)
[2022-02-21] MEDS: LITHIUM CARBONATE 300 MG CAPSULE PO SCH ×2 (08:50→16:13)
[2022-02-21 20:19] VITALS: BP 117/74
[2022-02-22] MEDS: DIVALPROEX SODIUM 500 MG DR TABLET PO SCH ×2 (08:51→16:37)
[2022-02-22] MEDS: RisperiDONE 2 MG TABLET PO SCH ×2 (08:51→16:37)
[2022-02-22] MEDS: LORazepam 2 MG TABLET PO PRN ×2 (08:51→16:38)
[2022-02-22] MEDS: LITHIUM CARBONATE 300 MG CAPSULE PO SCH ×2 (08:51→16:37)
[2022-02-22] MEDS: TERBINAFINE HCL 1% 30 GM CREAM TP SCH (08:52)
[2022-02-22] MEDS: MAGNESIUM SULFATE 454 GM BAG TP SCH (08:52)
[2022-02-22 09:37] VITALS: BP 101/69
[2022-02-23 04:33] VITALS: BP 102/71
[2022-02-23] MEDS: RisperiDONE 2 MG TABLET PO SCH ×2 (08:24→16:12)
[2022-02-23] MEDS: LORazepam 2 MG TABLET PO PRN (08:24)
[2022-02-23] MEDS: DIVALPROEX SODIUM 500 MG DR TABLET PO SCH ×2 (08:25→16:12)
[2022-02-23] MEDS: LITHIUM CARBONATE 300 MG CAPSULE PO SCH ×2 (08:25→16:12)
[2022-02-23] MEDS: MAGNESIUM SULFATE 454 GM BAG TP SCH (08:25)
[2022-02-23] MEDS: TERBINAFINE HCL 1% 30 GM CREAM TP SCH (08:25)
[2022-02-23 08:26] VITALS: BP 103/65
[2022-02-23 21:31] VITALS: BP 106/68
[2022-02-24 04:34] VITALS: BP 101/67
[2022-02-24 08:22] VITALS: BP 102/61
[2022-02-24] MEDS: LORazepam 2 MG TABLET PO PRN ×2 (08:43→16:39)
[2022-02-24] MEDS: RisperiDONE 2 MG TABLET PO SCH ×2 (08:43→16:39)
[2022-02-24] MEDS: DIVALPROEX SODIUM 500 MG DR TABLET PO SCH ×2 (08:43→16:39)
[2022-02-24] MEDS: LITHIUM CARBONATE 300 MG CAPSULE PO SCH ×2 (08:43→16:39)
[2022-02-24] MEDS: TERBINAFINE HCL 1% 30 GM CREAM TP SCH (12:27)
[2022-02-24] MEDS: MAGNESIUM SULFATE 454 GM BAG TP SCH (12:27)
[2022-02-24 14:01] LABS: LITHIUM 0.42 mmol/L (0.60-1.20)
[2022-02-24 20:28] VITALS: BP 111/57
[2022-02-25] MEDS: LORazepam 2 MG TABLET PO PRN ×2 (08:22→17:09)
[2022-02-25] MEDS: LITHIUM CARBONATE 300 MG CAPSULE PO SCH ×2 (08:22→17:09)
[2022-02-25] MEDS: DIVALPROEX SODIUM 500 MG DR TABLET PO SCH ×2 (08:22→17:09)
[2022-02-25] MEDS: RisperiDONE 2 MG TABLET PO SCH ×2 (08:22→17:09)
[2022-02-25] MEDS: TERBINAFINE HCL 1% 30 GM CREAM TP SCH (08:23)
[2022-02-25 10:07] VITALS: BP 105/67
[2022-02-25 20:25] VITALS: BP 106/75
[2022-02-26] MEDS: LITHIUM CARBONATE 300 MG CAPSULE PO SCH (08:41)
[2022-02-26] MEDS: DIVALPROEX SODIUM 500 MG DR TABLET PO SCH (08:41)
[2022-02-26] MEDS: RisperiDONE 2 MG TABLET PO SCH (08:41)
[2022-02-26] MEDS: TERBINAFINE HCL 1% 30 GM CREAM TP SCH (08:42)
[2022-02-26 08:45] VITALS: BP 100/64
[2022-02-26] MEDS: LORazepam 2 MG TABLET PO PRN (08:59)
[2022-02-26] MEDS ORDERED: RISP2TAB86 PO (10:18)
[2022-02-26] MEDS ORDERED: DIVA-112 PO (10:18)
[2022-02-26] MEDS ORDERED: LITH300C3 PO (10:18)
== END 2022-02-26 16:15 | disposition home or self-care (01) | DRG 885 ==
LOC: EMS 08:02 → B2X 02-19 04:38 → B3A 02-19 09:59
PROVIDERS: ADMIT Psychiatry & Neurology Psychiatry; ATTEND Psychiatry & Neurology Psychiatry
DX: F25.0 Schizoaffective disorder, bipolar type (principal); Z20.822 Contact with and (suspected) exposure to COVID-19; E11.9 Type 2 diabetes mellitus without complications; E78.00 Pure hypercholesterolemia, unspecified; F41.9 Anxiety disorder, unspecified; F15.10 Other stimulant abuse, uncomplicated; I10 Essential (primary) hypertension; K21.9 Gastro-esophageal reflux disease without esophagitis; G47.00 Insomnia, unspecified; F19.10 Other psychoactive substance abuse, uncomplicated; Z88.0 Allergy status to penicillin; Z87.891 Personal history of nicotine dependence; Z59.00 Homelessness unspecified; Z78.1 Physical restraint status
CPT/HCPCS: 80053; 80061; 80164; 80178; 83036; 84443; 85025; 99291; G0480; J1200; J1630

== ENCOUNTER 2022-06-12 07:52 | Inpatient (IN) | payer OTHER, MEDICAID ==
[~2022-06-12] VITALS: Ht 182.9 cm; Wt 80.3 kg
[~2022-06-12 07:52] MED LIST changes: -BENZ1TAB96 PO; +DIVA-112 PO; -DIVA-80 PO; -HALO5TAB2 PO; +LITH300C3 PO; -LITH600C5 PO; +RISP2TAB86 PO
[2022-06-12] MEDS ORDERED: DiphenhydrAMINE HCL 50 MG/ML VIAL ONE (08:26)
[2022-06-12] MEDS ORDERED: LORazepam 2 MG/ML VIAL ONE (08:26)
[2022-06-12] MEDS ORDERED: HALOPERIDOL LACTATE 5 MG/ML VIAL ONE (08:26)
[2022-06-12] MEDS ORDERED: LORazepam 2 MG/ML VIAL IM ONE (08:30)
[2022-06-12] MEDS ORDERED: HALOPERIDOL LACTATE 5 MG/ML VIAL IM ONE (08:30)
[2022-06-12] MEDS ORDERED: DiphenhydrAMINE HCL 50 MG/ML VIAL IM ONE (08:30)
[2022-06-12 09:40] LABS: COVID AG,FIA SOURCE NASOPHARYNGEAL
[2022-06-12 09:42] LABS: BASOPHILS % (AUTO) 0.4 % (0.0-2.0); EOSINOPHILS % (AUTO) 0 % (1.0-6.0); HEMOGLOBIN 12.4 g/dL (13.5-17.5); LYMPHOCYTES # (AUTO) 1.1 K/uL (1.0-4.8); LYMPHOCYTES % (AUTO) 20.7 % (22.0-44.0); MEAN CORPUSCULAR HEMOGLOBIN 29.8 pg (26.0-34.0); MEAN CORPUSCULAR HGB CONC 32.6 G/dL (31.0-37.0); MEAN CORPUSCULAR VOLUME 92 fL (80-100); MONOCYTES # (AUTO) 0.5 K/uL (0.1-1.0); MONOCYTES % (AUTO) 8.7 % (2.0-9.0); NEUTROPHILS # (AUTO) 3.8 K/uL (1.8-7.7); NEUTROPHILS % (AUTO) 70.2 % (40.0-70.0); PLATELET COUNT (AUTO) 298 K/uL (150-450); RED BLOOD CELL COUNT(AUTO) 4.15 MIL/uL (4.50-5.90)
[2022-06-12] MEDS ORDERED: ZOLPIDEM TARTRATE 10 MG TABLET PO PRN (09:45)
[2022-06-12 09:51] LABS: ANION GAP 9 mmol/L (8-16); CALCIUM, TOTAL 9.1 mg/dL (8.8-10.5); CARBON DIOXIDE 25 mmol/L (22-29); CHLORIDE 104 mmol/L (98-107); CREATININE 0.73 mg/dL (0.60-1.30); GLOMERULAR FILTR. RATE CALC > 60 mL/min (>60); GLUCOSE,RANDOM 83 mg/dL (70-110); POTASSIUM 3.9 mmol/L (3.5-5.1); SODIUM SERUM 138 mmol/L (136-145); UREA NITROGEN, BLOOD 19 mg/dL (7-18)
[2022-06-12 09:56] LABS: ALANINE AMINOTRANSFERASE 16 U/L (12-78); ALBUMIN 3.5 g/dL (3.4-5.0); ALKALINE PHOSPHATASE 58 U/L (46-116); ASPARTATE AMINOTRANSFERASE 20 U/L (15-37); BILIRUBIN,TOTAL 0.6 mg/dL (0.1-1.0); TOTAL PROTEIN, SERUM 7.4 g/dL (6.4-8.2)
[2022-06-12 11:57] VITALS: BP 143/77
[2022-06-12 11:59] VITALS: BP 143/77
[2022-06-12] MEDS ORDERED: INFLUENZA VIRUS VACCINE QVS 2022-23 (6MO+)/PF 60 MCG/0.5 ML SYRINGE IM. ONE (13:45)
[2022-06-12 16:41] VITALS: BP 98/62
[2022-06-13] MEDS: HALOPERIDOL 5 MG TABLET PO PRN (07:56)
[2022-06-13] MEDS: LORazepam 2 MG TABLET PO PRN (07:57)
[2022-06-13] MEDS: RisperiDONE 2 MG TABLET PO SCH ×2 (09:21→20:10)
[2022-06-13] MEDS: LITHIUM CARBONATE 300 MG CAPSULE PO SCH ×2 (09:21→16:43)
[2022-06-13] MEDS: DIVALPROEX SODIUM 500 MG ER TABLET PO SCH ×2 (09:21→16:43)
[2022-06-13 16:00] VITALS: BP 123/81
[2022-06-14] MEDS: DIVALPROEX SODIUM 500 MG ER TABLET PO SCH ×2 (08:08→17:36)
[2022-06-14] MEDS: LITHIUM CARBONATE 300 MG CAPSULE PO SCH ×2 (08:08→17:36)
[2022-06-14] MEDS: RisperiDONE 2 MG TABLET PO SCH ×2 (08:08→20:16)
[2022-06-14] MEDS: HALOPERIDOL 5 MG TABLET PO PRN ×2 (08:08→16:01)
[2022-06-14] MEDS: LORazepam 2 MG TABLET PO PRN ×2 (08:08→16:01)
[2022-06-14 08:38] VITALS: BP 150/73
[2022-06-14 16:50] VITALS: BP 121/76
[2022-06-15] MEDS: DIVALPROEX SODIUM 500 MG ER TABLET PO SCH (08:02)
[2022-06-15] MEDS: RisperiDONE 2 MG TABLET PO SCH (08:02)
[2022-06-15 08:03] VITALS: BP 114/68
[2022-06-15] MEDS: LITHIUM CARBONATE 300 MG CAPSULE PO SCH (08:03)
[2022-06-15] MEDS: HALOPERIDOL 5 MG TABLET PO PRN (08:03)
[2022-06-15] MEDS ORDERED: RISP2TAB86 PO (09:59)
[2022-06-15] MEDS ORDERED: DIVA-80 PO (09:59)
[2022-06-15] MEDS ORDERED: LITH300C3 PO (09:59)
== END 2022-06-15 11:05 | disposition home or self-care (01) | DRG 885 ==
LOC: EMS 08:01 → 3EC 10:04
PROVIDERS: ADMIT Psychiatry & Neurology Child & Adolescent Psychiatry; ATTEND Psychiatry & Neurology Child & Adolescent Psychiatry
DX: F25.0 Schizoaffective disorder, bipolar type (principal); R45.851 Suicidal ideations; Z20.822 Contact with and (suspected) exposure to COVID-19; E11.9 Type 2 diabetes mellitus without complications; E78.00 Pure hypercholesterolemia, unspecified; F15.10 Other stimulant abuse, uncomplicated; F41.9 Anxiety disorder, unspecified; G47.00 Insomnia, unspecified; I10 Essential (primary) hypertension; K21.9 Gastro-esophageal reflux disease without esophagitis; F17.210 Nicotine dependence, cigarettes, uncomplicated; D64.9 Anemia, unspecified; F19.10 Other psychoactive substance abuse, uncomplicated; Z88.0 Allergy status to penicillin
CPT/HCPCS: 80053; 85025; 99291; G0480; J1200; J1630; J2060

== ENCOUNTER 2023-05-09 00:48 | Inpatient (IN) | payer MEDICARE, MEDICAID ==
[~2023-05-09] VITALS: Ht 182.9 cm; Wt 84.4 kg
[~2023-05-09 00:48] MED LIST changes: -DIVA-112 PO; +DIVA500T53 PO
[2023-05-09] MEDS ORDERED: LORazepam 2 MG/ML VIAL IM ONE (01:00)
[2023-05-09] MEDS ORDERED: DiphenhydrAMINE HCL 50 MG/ML VIAL IM ONE (01:00)
[2023-05-09] MEDS ORDERED: HALOPERIDOL LACTATE 5 MG/ML VIAL IM ONE (01:00)
[2023-05-09 02:06] LABS: COVID AG,FIA SOURCE NASAL SWAB
[2023-05-09 02:26] LABS: SARS-COV2 (COVID) ANTIGEN,FIA Negative (Negative)
[2023-05-09 02:45] LABS: BASOPHILS % (AUTO) 0.4 % (0.0-2.0); EOSINOPHILS % (AUTO) 0 % (1.0-6.0); HEMATOCRIT 34.3 % (41-53); HEMOGLOBIN 11.2 g/dL (13.5-17.5); LYMPHOCYTES % (AUTO) 24.9 % (22.0-44.0); MEAN CORPUSCULAR HEMOGLOBIN 30.2 pg (26.0-34.0); MEAN CORPUSCULAR HGB CONC 32.7 G/dL (31.0-37.0); MEAN CORPUSCULAR VOLUME 92 fL (80-100); MONOCYTES # (AUTO) 0.4 K/uL (0.1-1.0); MONOCYTES % (AUTO) 9.7 % (2.0-9.0); NEUTROPHILS # (AUTO) 2.6 K/uL (1.8-7.7); PLATELET COUNT (AUTO) 313 K/uL (150-450); RED BLOOD CELL COUNT(AUTO) 3.71 MIL/uL (4.50-5.90); WHITE BLOOD COUNT (AUTO) 4.1 K/uL (4.5-11.0)
[2023-05-09 02:53] LABS: ANION GAP 8 mmol/L (8-16); CALCIUM, TOTAL 8.3 mg/dL (8.8-10.5); CARBON DIOXIDE 26 mmol/L (22-29); CHLORIDE 106 mmol/L (98-107); CREATININE 0.58 mg/dL (0.60-1.30); GLOMERULAR FILTR. RATE CALC > 60 mL/min (>60); GLUCOSE,RANDOM 93 mg/dL (70-110); POTASSIUM 3.7 mmol/L (3.5-5.1); SODIUM SERUM 140 mmol/L (136-145); UREA NITROGEN, BLOOD 9 mg/dL (7-18)
[2023-05-09 03:01] LABS: ALANINE AMINOTRANSFERASE 17 U/L (12-78); ALBUMIN 3.1 g/dL (3.4-5.0); ALKALINE PHOSPHATASE 40 U/L (46-116); ASPARTATE AMINOTRANSFERASE 23 U/L (15-37); BILIRUBIN,TOTAL 0.4 mg/dL (0.1-1.0); TOTAL PROTEIN, SERUM 6.8 g/dL (6.4-8.2)
[2023-05-09 03:02] LABS: ALCOHOL, BLOOD (SERUM) 67 mg/dL (0-10)
[2023-05-09] MEDS ORDERED: ZOLPIDEM TARTRATE 10 MG TABLET PO PRN (04:00)
[2023-05-09 12:37] VITALS: BP 135/78; PULSE 75; RESP 18; TEMP 97.6; O2SAT 97
[2023-05-09] MEDS: LITHIUM CARBONATE 300 MG CAPSULE PO SCH (16:24)
[2023-05-09] MEDS: DIVALPROEX SODIUM 500 MG DR TABLET PO SCH (16:24)
[2023-05-09] MEDS ORDERED: OMEPRAZOLE 20 MG CAPSULE PO PRN (19:30)
[2023-05-09] MEDS ORDERED: IBUPROFEN 600 MG TABLET PO PRN (19:30)
[2023-05-09] MEDS ORDERED: ACETAMINOPHEN 325 MG TABLET PO PRN (19:30)
[2023-05-09] MEDS ORDERED: BENZOCAINE/MENTHOL LOZENGE PO PRN (19:30)
[2023-05-09] MEDS ORDERED: BACITRACIN 28 GM OINTMENT TP PRN (19:30)
[2023-05-09] MEDS ORDERED: MAG HYDROX/AL HYDROX/SIMETH ES 30 ML SUSPENSION UDCUP PO PRN (19:30)
[2023-05-09] MEDS ORDERED: ONDANSETRON HCL 4 MG TABLET PO PRN (19:30)
[2023-05-09] MEDS ORDERED: MAGNESIUM HYDROXIDE SUSPENSION 30 ML UDCUP PO PRN (19:30)
[2023-05-09] MEDS ORDERED: PETROLATUM,WHITE 28 GM JELLY TP PRN (19:30)
[2023-05-09] MEDS ORDERED: ALBUTEROL SULFATE HFA 90 MCG/PUFF 8 GM INHALER IH PRN (19:30)
[2023-05-09] MEDS ORDERED: CloNIDine HCL 0.1 MG TABLET PO PRN (19:30)
[2023-05-09] MEDS ORDERED: LOPERAMIDE HCL 2 MG CAPSULE PO PRN (19:30)
[2023-05-09] MEDS ORDERED: DOCUSATE SODIUM 100 MG CAPSULE PO PRN (19:30)
[2023-05-09] MEDS: HALOPERIDOL 5 MG TABLET PO PRN (20:30)
[2023-05-09] MEDS: RisperiDONE 2 MG TABLET PO SCH (20:55)
[2023-05-09] MEDS: LORazepam 2 MG TABLET PO PRN (20:56)
[2023-05-09 21:57] VITALS: RESP 18
[2023-05-10] MEDS: RisperiDONE 2 MG TABLET PO SCH ×2 (09:44→21:23)
[2023-05-10] MEDS: DIVALPROEX SODIUM 500 MG DR TABLET PO SCH ×2 (09:44→17:46)
[2023-05-10] MEDS: LITHIUM CARBONATE 300 MG CAPSULE PO SCH ×2 (09:44→17:46)
[2023-05-10 10:42] VITALS: BP 115/88; PULSE 86; RESP 16; TEMP 97.9; O2SAT 98
[2023-05-10 20:13] VITALS: BP 130/78; PULSE 81; TEMP 97.6
[2023-05-11] MEDS: DIVALPROEX SODIUM 500 MG DR TABLET PO SCH ×2 (09:00→16:39)
[2023-05-11] MEDS: LITHIUM CARBONATE 300 MG CAPSULE PO SCH ×2 (09:00→16:39)
[2023-05-11] MEDS: RisperiDONE 2 MG TABLET PO SCH ×2 (09:00→21:40)
[2023-05-11 09:30] VITALS: BP 113/72; PULSE 104; RESP 18; TEMP 98.1; O2SAT 98
[2023-05-11] MEDS: LORazepam 2 MG TABLET PO PRN (21:40)
[2023-05-11] MEDS: HALOPERIDOL 5 MG TABLET PO PRN (21:40)
[2023-05-11 23:52] VITALS: RESP 18
[2023-05-12] MEDS: DIVALPROEX SODIUM 500 MG DR TABLET PO SCH ×2 (09:33→17:43)
[2023-05-12] MEDS: RisperiDONE 2 MG TABLET PO SCH ×2 (09:33→21:08)
[2023-05-12] MEDS: LITHIUM CARBONATE 300 MG CAPSULE PO SCH ×2 (09:33→17:44)
[2023-05-12 09:57] VITALS: BP 115/79; PULSE 80; RESP 19; TEMP 97.6; O2SAT 98
[2023-05-12 21:24] VITALS: BP 100/70; PULSE 79; RESP 18; TEMP 98.2; O2SAT 98
[2023-05-13 08:03] LABS: LITHIUM 0.36 mmol/L (0.60-1.20)
[2023-05-13 12:30] VITALS: BP 107/77; PULSE 83; RESP 18; TEMP 98.1; O2SAT 99
[2023-05-13] MEDS: LITHIUM CARBONATE 300 MG CAPSULE PO SCH ×2 (12:59→18:57)
[2023-05-13] MEDS: RisperiDONE 2 MG TABLET PO SCH ×2 (12:59→21:10)
[2023-05-13] MEDS: DIVALPROEX SODIUM 500 MG DR TABLET PO SCH ×2 (12:59→18:58)
[2023-05-13 21:23] VITALS: BP 109/66; PULSE 80; RESP 18; TEMP 98.1; O2SAT 99
[2023-05-14] MEDS: RisperiDONE 2 MG TABLET PO SCH ×2 (09:00→21:11)
[2023-05-14] MEDS: LITHIUM CARBONATE 300 MG CAPSULE PO SCH ×2 (09:00→17:23)
[2023-05-14] MEDS: DIVALPROEX SODIUM 500 MG DR TABLET PO SCH ×2 (09:00→17:23)
[2023-05-14 09:41] VITALS: BP 112/76; PULSE 74; RESP 19; TEMP 97.7; O2SAT 97
[2023-05-14 21:30] VITALS: BP 104/66; PULSE 76; RESP 18; TEMP 97.9; O2SAT 96
[2023-05-15] MEDS: LITHIUM CARBONATE 300 MG CAPSULE PO SCH (08:43)
[2023-05-15] MEDS: RisperiDONE 2 MG TABLET PO SCH (08:43)
[2023-05-15] MEDS: DIVALPROEX SODIUM 500 MG DR TABLET PO SCH (08:43)
[2023-05-15 10:12] VITALS: BP 105/64; PULSE 79; RESP 19; TEMP 98.7; O2SAT 96
== END 2023-05-15 13:45 | disposition home or self-care (01) | DRG 885 ==
LOC: EMS 00:49 → 3EI 10:37
PROVIDERS: ADMIT Psychiatry & Neurology Psychiatry; ATTEND Psychiatry & Neurology Psychiatry
DX: F25.0 Schizoaffective disorder, bipolar type (principal); S82.831A Other fracture of upper and lower end of right fibula, initial encounter for closed fracture; S93.401A Sprain of unspecified ligament of right ankle, initial encounter; I10 Essential (primary) hypertension; F19.90 Other psychoactive substance use, unspecified, uncomplicated; E78.00 Pure hypercholesterolemia, unspecified; E11.9 Type 2 diabetes mellitus without complications; Z20.822 Contact with and (suspected) exposure to COVID-19; K21.9 Gastro-esophageal reflux disease without esophagitis; G47.00 Insomnia, unspecified; X58.XXXA Exposure to other specified factors, initial encounter; F41.9 Anxiety disorder, unspecified; Z79.899 Other long term (current) drug therapy; Z88.8 Allergy status to other drugs, medicaments and biological substances; Y93.89 Activity, other specified; Y92.89 Other specified places as the place of occurrence of the external cause; Y99.8 Other external cause status; Z88.0 Allergy status to penicillin
CPT/HCPCS: 80053; 80164; 80178; 85025; 99291; G0480; J1200; J1630; J2060